=== PATIENT | male | born 1935 | race Caucasian/White ===

== ENCOUNTER 2019-11-21 03:00 | Inpatient (IN) | payer MEDICARE, OTHER ==
[2019-11-21] MEDS ORDERED: VANCOMYCIN HCL INJ 1000 MG VIAL IV ONE (03:25)
[2019-11-21] MEDS ORDERED: ACETAMINOPHEN 325 MG TABLET PO ONE (03:25)
[2019-11-21] MEDS ORDERED: AZTREONAM INJ 1 GM VIAL IV ONE (03:25)
--- NOTE | 2019-11-21 03:32 | ER Document Report ---
ED General - General Chief Complaint: Edema Stated Complaint: POSS CELLULITIS IN LEGS Time Seen by Provider: 11/21/19 03:10 Mode of Arrival: Medic Information source: Patient, Relative Notes: 84-year-old male past medical history significant for lymphedema, CHF, hyperlipidemia, diabetes presents to the emergency room via EMS with family at bedside who states that patient has been complaining of worsening pain and swelling in his legs for the past 2 weeks. States normally wears compression stockings but he developed some sores to his leg so he stopped wearing them 2 weeks ago. Increasing redness and swelling was noted tonight. Also has an area on his left medial calf that is draining purulent drainage. Per family he seemed more confused over the past few days. Today was found wandering through the house. Denies any fevers. No medications for symptoms. No recent antibiotics in the past month. No recent travel. No history of DVTs or PEs. No COVID-19 exposure. TRAVEL OUTSIDE OF THE [place] IN LAST 30 DAYS: No - Related Data Allergies/Adverse Reactions: No Known Drug Allergies Allergy (Verified 06/24/13 07:12) Past Medical History - General Information source: Patient, Relative - Social History Smoking Status: Never Smoker Frequency of alcohol use: Occasional Family History: Reviewed & Not Pertinent - Past Medical History Cardiac Medical History: Reports: Hx Hypercholesterolemia, Hx Hypertension Denies: Hx Coronary Artery Disease, Hx Heart Attack Pulmonary Medical History: Reports: Hx Pneumonia - A TEENAGER Denies: Hx Asthma, Hx Bronchitis, Hx COPD Neurological Medical History: Denies: Hx Cerebrovascular Accident, Hx Seizures Endocrine Medical History: Reports: Hx Diabetes Mellitus Type 2 Renal/ Medical History: Reports: Hx Kidney Stones GI Medical History: Reports: Hx Gastroesophageal Reflux Disease Musculoskeletal Medical History: Denies Hx Arthritis Past Surgical History: Reports: Hx Appendectomy, Hx Cardiac Catheterization, Hx Tonsillectomy - Immunizations Hx Diphtheria, Pertussis, Tetanus Vaccination: Yes - 5-10 yrs ago Hx Pneumococcal Vaccination: 03/11/07 Review of Systems - Review of Systems Constitutional: No symptoms reported Cardiovascular: Edema Respiratory: No symptoms reported Musculoskeletal: Leg swelling Skin: Other - Lower extremity erythema, left worse than right., Neurological/Psychological: No symptoms reported -: Yes All other systems reviewed and negative Physical Exam - Vital signs Vitals: Temp Pulse Resp BP Pulse Ox 99 F 97 26 H 107/51 L 96 11/21/19 03:00 11/21/19 03:00 11/21/19 03:00 11/21/19 03:00 11/21/19 03:00 - General General appearance: Appears well, Alert In distress: Mild - Respiratory Respiratory status: No respiratory distress Chest status: Nontender Breath sounds: Normal Chest palpation: Normal - Cardiovascular Rhythm: Regular Heart sounds: Normal auscultation Murmur: No - Extremities General upper extremity: Normal inspection General lower extremity: Tender, Edema, Other - Bilateral lower leg swelling from the knees down. Left lower extremity with erythema, open draining sores noted to the left posterior calf. Warm and tender to palpation. Erythema extending into the left groin area. - Neurological Neuro grossly intact: Yes Cognition: Normal Orientation: AAOx4 Mary Kate Coma Scale Eye Opening: Spontaneous Mary Kate Coma Scale Verbal: Oriented Mary Kate Coma Scale Motor: Obeys Commands Mary Kate Coma Scale Total: 15 Speech: Normal Motor strength normal: LUE, RUE, LLE, RLE Sensory: Normal - Skin Skin Temperature: Warm Skin Moisture: Dry Skin Color: Erythema Skin Turgor: Tight Skin irregularity: Erythema, Lesion Location of irregularity: Extremities Character of irregularity: Erythematous Irregularity with: Swelling, Tenderness, Warmth, Weeping Course - Re-evaluation Re-evalutation: 11/21/19 04:31 Reviewed glucose level with patient and family. Will give IV dextrose, remaining labs and x-rays are still pending. Patient was treated for sepsis with IV antibiotics, lactic acid, blood cultures. 11/21/19 05:03 Patient is more alert. Repeat glucose 166. Reviewed all test results with patient and family. Aware of need for admission. Patient and family agree to admission. Aware that Dr. Lim will be in to see them. - Vital Signs Vital signs: Temp Pulse Resp BP Pulse Ox 98.9 F 97 26 H 96/60 L 99 11/21/19 05:01 11/21/19 03:00 11/21/19 06:01 11/21/19 06:00 11/21/19 06:01 - Laboratory Result Diagrams: 11/21/19 03:36 11/21/19 03:36 Laboratory results interpreted by me: 11/21/19 11/21/19 11/21/19 03:36 03:36 04:50 RBC 3.60 L Hgb 12.3 L Hct 35.1 L MCV 98 H MCH 34.1 H RDW 14.6 H Band Neutrophils % 8 H Lymphocytes % (Manual) 10 L Monocytes % (Manual) 15 H Abs Monocytes (Manual) 1.5 H Sodium 131.9 L BUN 34 H Creatinine 1.28 H Est GFR (MDRD) Non-Af 54 L Glucose 44 L POC Glucose 164 H Total Bilirubin 1.4 H Direct Bilirubin 0.7 H Total Protein 5.5 L Albumin 2.9 L - EKG Interpretation by Me EKG shows normal: Sinus rhythm Additional EKG results interpreted by me: 11/21/19 03:27 EKG interpreted by ED physician Dr. Bruce No acute STEMI Sinus rhythm Rate 97 Left axis deviation Borderline T wave abnormalities - Consults Dr. Lim Time consulted: 05:04 Reason for consultation: 11/21/19 05:04 Admit for left leg cellulitis. All test results were reviewed with hospitalist. Who agrees to come to the ER to see patient. Consulted provider: will come to ER Discharge - Discharge Clinical Impression: Cellulitis of left leg Condition: Stable Disposition: ADMITTED INPATIENT Admitting Provider: Raphael (Hospitalist) Unit Admitted: [facility] ED Sepsis - Sepsis Documentation Sepsis Patient: Yes - Vital Signs Interpretation: Hypotensive - Respiratory Breath sounds: Clear Respiratory Status: No respiratory distress - Skin Skin Color: Erythema - Fluid Challenge Was the patient given a fluid challenge?: No
[2019-11-21 04:07] LABS: INTERNATIONAL RATION (INR) 1.18; PROTHROMBIN TIME 15.2 SEC (11.4-15.4)
[2019-11-21 04:12] LABS: ALBUMIN 2.9 g/dL (3.5-5.0); ALKALINE PHOSPHATASE 60 U/L (38-126); ANION GAP 9 (5-19); ASPARTATE AMINO TRANSFERASE 26 U/L (17-59); BILIRUBIN,DIRECT 0.7 mg/dL (0.0-0.4); BILIRUBIN,TOTAL 1.4 mg/dL (0.2-1.3); BLOOD UREA NITROGEN 34 mg/dL (7-20); CALCIUM 8.7 mg/dL (8.4-10.2); CARBON DIOXIDE 22 mmol/L (22-30); CHLORIDE 101 mmol/L (98-107); POTASSIUM 4.1 mmol/L (3.6-5.0); TOTAL PROTEIN 5.5 g/dL (6.3-8.2)
[2019-11-21 04:17] LABS: GLUCOSE 44 mg/dL (75-110)
[2019-11-21] MEDS ORDERED: DEXTROSE 50%-WATER 25 GM/50 ML DISP.SYRIN IV ONE (04:19)
[2019-11-21 04:27] LABS: HEMATOCRIT 35.1 % (37.9-51.0); HEMOGLOBIN 12.3 g/dL (13.5-17.0); MEAN CORPUSCULAR HEMOGLOBIN 34.1 pg (27.0-33.4); MEAN CORPUSCULAR HGB CONC 34.9 g/dL (32.0-36.0); MEAN CORPUSCULAR VOLUME 98 fl (80-97); PLATELET COUNT 160 10^3/uL (150-450); RED CELL DISTRIBUTION WIDTH 14.6 % (11.5-14.0)
--- NOTE | 2019-11-21 04:32 | RADIOLOGY REPORT (SQ) ---
EXAM DESCRIPTION: CHEST SINGLE VIEW IMAGES COMPLETED DATE/TIME: 11/21/2019 3:42 am REASON FOR STUDY: edema COMPARISON: AP view of the chest from 12/07/2015. EXAM PARAMETERS: NUMBER OF VIEWS: One view. TECHNIQUE: An AP view of the chest was obtained. RADIATION DOSE: NA LIMITATIONS: None. FINDINGS: LUNGS AND PLEURA: Low inspiratory lung volumes without a superimposed consolidation, sizea ble pleural effusion or pneumothorax. MEDIASTINUM AND HILAR STRUCTURES: No mediastinal or hilar contour abnormality. HEART AND VASCULAR STRUCTURES: The cardiac silhouette is enlarged. BONES: No acute findings. HARDWARE: None in the chest. OTHER: No other finding. IMPRESSION: Cardiomegaly and low inspiratory lung volumes without a superimposed acute cardiopulmona ry process. TECHNICAL DOCUMENTATION: JOB ID: [id number] 2010 [employer]- All Rights Reserved Reading location - IP/workstation name: [email or web address]
[2019-11-21 04:39] LABS: ABSOLUTE MONOCYTES # (MANUAL) 1.5 10^3/uL (0.1-1.4); BAND NEUTROPHILS % (MANUAL) 8 % (3-5); BASOPHILS % (MANUAL) 0 % (0-2); EOSINOPHILS % (MANUAL) 0 % (0-6); LYMPHOCYTES % (MANUAL) 10 % (13-45); MONOCYTES % (MANUAL) 15 % (3-13); SEGMENTED NEUTROPHILS % (MAN) 67 % (42-78); TOTAL CELLS COUNTED 100
[2019-11-21 04:40] LABS: ANISOCYTOSIS SLIGHT; PLATELET COMMENT ADEQUATE; TOXIC GRANULATION SLIGHT
[2019-11-21] MEDS ORDERED: RINGERS SOLUTION,LACTATED 500 ML IV ONE (05:06)
[2019-11-21] MEDS ORDERED: RINGERS SOLUTION,LACTATED 1,000 ML IV PRN ×2 (06:01→06:11)
[2019-11-21] MEDS ORDERED: MAGNESIUM HYDROXIDE SUSP 30 ML UDCUP PO PRN (06:02)
[2019-11-21] MEDS ORDERED: ACETAMINOPHEN 325 MG TABLET PO PRN (06:02)
--- NOTE | 2019-11-21 06:08 | PDOC H&P ---
History of Present Illness Admission Date/PCP: 11/21/19 05:15 ALICE LEDEZMA MD Patient complains of: Red swollen painful left leg History of Present Illness: NOÉ TOBAR is a 84 year old male with a history of diabetes, hypertension and hyperlipidemia who presents with significant worsening of his lower extremity edema left greater than right. The left lower leg is markedly erythematous. There is a large bullous lesion on the calf area that still is w eeping fluid. There is the base of what was a bullous lesion on the right leg but the right leg is not erythematous. There is a suggestion of erythema progressing along the medial thigh. This area is not tender but the lower leg is very tender. It has keratin scaling. There is the one prominent bullous lesion on the calf but no other weeping lesions at this time. There is no purulent drainage in the causative organism is most likely Streptococcus. He lives at home with his daughter and son-in-law as opposed to a correction facility. Risk for methicillin-resistant staph aureus is also low. It is unlikely that he has gram-negative bacilli causing his infection. I have ordered an antistreptolysin O test to assess for group A strep. The patient exhibits hypotension as well as acute kidney injury that qualifies for sepsis. He will receive bolus IV fluids and we will hold his furosemide and metoprolol until his blood pressure stabilizes. He is diabetic and we will utilize Accu- Cheks and sliding scale coverage for the time being. He will be monitored on telemetry in the [facility]. Serial lactic acids will be obtained but the first study was negative. 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 He believes the numbers well over 100. He currently has some on his tongue as well as the lips causing purple discoloration. GI Medical History: Reports: Gastroesophageal Reflux Disease Musculoskeltal Medical History: Denies: Arthritis Psychiatric Medical History: Denies: Alcohol Dependency, Substance Abuse, Tobacco Dependency Hematology: Denies: Anemia Past Surgical History Past Surgical History: Reports: Appendectomy, Cardiac Catheterization, Tonsillectomy Social History Information Source: Patient, Relative - Son-in-law Lives with: Family Smoking Status: Former Smoker - Stopped many years ago Frequency of Alcohol Use: Occasional - [place] Hx Recreational Drug Use: No Drugs: None Hx Prescription Drug Abuse: No - Advance Directive Resuscitation Status: Full Code Surrogate healthcare decision maker:: The patient's daughter is the power of collections attorney. Family History Family History: Malignancy, Other - Myasthenia gravis Parental Family History Reviewed: Yes Children Family History Reviewed: Yes Sibling(s) Family History Reviewed.: Yes Medication/Allergy Home Medications: Aspirin [Aspirin EC] 81 mg PO DAILY 06/24/13 Atorvastatin Calcium 20 mg PO DAILY 06/24/13 Cinnamon Bark/Chromium Picolin [Cinnamon Plus Chromium Capsule] 1 cap PO ASDIR 06/24/13 Insulin Detemir [Levemir Insulin 100 units/mL Insulin Pen] 100 unit SUBCUT DAILY 06/24/13 Loratadine [Claritin] 10 mg PO DAILY 06/24/13 Metoprolol Succinate [Toprol Xl] 50 mg PO DAILY 06/24/13 Multivitamin [Daily Vitamin] 1 each PO DAILY 06/24/13 [place]-3 Fatty Acids/Fish Oil [[place] 3 Fish Oil Softgel] 1 each PO BID 06/24/13 Saw [place] Fruit [Saw [place]] 450 mg PO ASDIR PRN 06/24/13 Sitagliptin Phos/Metformin HCl [Janumet Xr 50-500 mg Tablet] 1 each PO BID 06/24/13 Telmisartan 20 mg PO DAILY 06/24/13 Valacyclovir HCl [Valacyclovir] 1,000 mg PO DAILY 06/24/13 Ascorbic Acid [Vitamin C] 500 mg PO DAILY 06/21/15 Allergies/Adverse Reactions: No Known Drug Allergies Allergy (Verified 06/24/13 07:12) Review of Systems All systems: reviewed and no additional remarkable complaints except as stated Constitutional: PRESENT: weight gain Cardiovascular: PRESENT: edema Integumentary: PRESENT: erythema, lesions - Bullae lower legs serous fluid Neurological: PRESENT: abnormal gait - Due to marked edema Endocrine: PRESENT: other - Hypoglycemia Physical Exam Vital Signs: Temp Pulse Resp BP Pulse Ox 98.9 F 97 24 H 83/46 L 95 11/21/19 05:01 11/21/19 03:00 11/21/19 05:01 11/21/19 05:01 11/21/19 05:01 Intake & Output 11/19/19 11/20/19 11/21/19 06:59 06:59 06:59 Intake Total 250 Balance 250 Weight 93.4 kg General appearance: PRESENT: well-developed, other - Well-developed 84-year-old patient in moderate distress Head exam: PRESENT: atraumatic, normocephalic Eye exam: PRESENT: conjunctiva pink, EOMI. ABSENT: scleral icterus Ear exam: PRESENT: normal external ear exam. ABSENT: bleeding, drainage Mouth exam: PRESENT: moist, tongue midline, other - Multiple nodules on the time consistent with his history of lymphatic hemangioma. Purplish discoloration on the lips also part of the lymphatic hemangioma presentation Teeth exam: PRESENT: poor dentation Neck exam: ABSENT: carotid bruit, JVD, lymphadenopathy Respiratory exam: PRESENT: clear to auscultation nikolas, symmetrical, unlabored. ABSENT: rales, rhonchi, tachypnea, wheezes Cardiovascular exam: PRESENT: RRR, +S1, +S2. ABSENT: bradycardia, diastolic murmur, irregular rhythm, systolic murmur, tachycardia GI/Abdominal exam: PRESENT: normal bowel sounds, soft, other - Protuberant abdomen. ABSENT: guarding, tenderness Rectal exam: PRESENT: deferred Gentrourinary exam: ABSENT: indwelling catheter Extremities exam: PRESENT: pedal edema - Left greater than right, +2 edema, other Musculoskeletal exam: ABSENT: normal inspection Neurological exam: PRESENT: alert, awake, oriented to person, oriented to place, oriented to time, oriented to situation, CN II-XII grossly intact. ABSENT: altered Psychiatric exam: PRESENT: flat affect. ABSENT: agitated, anxious Focused psych exam: ABSENT: delusional, paranoid, restlessness Skin exam: PRESENT: erythema, other - Keratin scaling on the left lower leg. Large bullous lesion that has opened on the right calf and is weeping straw- colored serous fluid. No purulent drainage. Results Laboratory Results: 11/21/19 03:36 11/21/19 03:36 11/21/19 11/21/19 11/21/19 03:36 03:36 03:36 WBC 10.0 RBC 3.60 L Hgb 12.3 L Hct 35.1 L MCV 98 H MCH 34.1 H MCHC 34.9 RDW 14.6 H Plt Count 160 Seg Neutrophils % Not Reportable Sodium 131.9 L Potassium 4.1 Chloride 101 Carbon Dioxide 22 Anion Gap 9 BUN 34 H Creatinine 1.28 H Est GFR ( Amer) > 60 Glucose 44 L Lactic Acid 1.7 Calcium 8.7 Total Bilirubin 1.4 H AST 26 Alkaline Phosphatase 60 Total Protein 5.5 L Albumin 2.9 L Impressions: Chest X-Ray 11/21/19 03:25 IMPRESSION: Cardiomegaly and low inspiratory lung volumes without a superimposed acute cardiopulmonary process. Assessment and Plan - Diagnosis (1) Sepsis associated hypotension Is this a current diagnosis for this admission?: Yes Plan: The patient meets criteria for sepsis with a serum creatinine greater than 1.2, total bilirubin greater than 1.2 and mean arterial pressure less than 70 all present on admission. He also has some mental status changes but that was likely due to hypoglycemia. He is getting fluid boluses and antibiotics have been started. Blood cultures have been obtained. Will monitor closely on telemetry with every 4 hours vital signs as well. Lactic acid was not elevated. Will recheck per protocol. (2) Cellulitis of left leg Is this a current diagnosis for this admission?: Yes Plan: Very angry red left lower leg. There is suggestion of erythema traveling proximally on the inside of the thigh but no clear-cut lymphangitis. No purulent drainage. Most likely a streptococcal organism. The patient will be continued on Rocephin and received 2 days of clindamycin to suppress toxin production. Blood cultures are pending. We will also monitor white blood cell count. (3) Hyperglycemia due to diabetes mellitus Is this a current diagnosis for this admission?: Yes Plan: The patient is on Levemir at home. We will use a cardiac/diabetic diet and A ccu-Cheks at mealtime and bedtime with sliding scale coverage for now. (4) Edema, lower extremity Is this a current diagnosis for this admission?: Yes Plan: The patient usually wears compression stockings. As his legs became more swollen he was not able to put them on. The patient would benefit from compression wraps. After the weekend we will try and obtain multilayer compression wraps in coordination with the wound care clinic. For now elevate lower extremities. (5) Hyponatremia Is this a current diagnosis for this admission?: Yes Plan: We will monitor serum sodium closely. Possibly related to fluid retention with lymphedema. Elevation in serum creatinine is not likely high enough to cause the hyponatremia. We will continue to monitor with serial laboratory studies. No specific intervention at this time as the patient needs fluid boluses for sepsis. (6) HTN (hypertension), benign Is this a current diagnosis for this admission?: Yes Plan: The patient is normally on furosemide, metoprolol and propranolol. These are on hold pending improvement in his blood pressure. (7) Hypoglycemia Is this a current diagnosis for this admission?: Yes Plan: Initial glucose was 44. He was given 25 g of D50 through his intravenous line. Subsequently glucose is elevated. Will use Accu-Cheks and sliding scale cov erage as noted above for ongoing control of his diabetes. It is likely that the hypoglycemia was responsible for any altered mental status previously reported. During my encounter the patient did not have any altered mental status. - Time Time Spent with patient: 35 or more minutes Medications reviewed and adjusted accordingly: Yes Anticipated Discharge Disposition: Home with Home Health Anticipated Discharge Timeframe: 4 to 5 days - Inpatient Certification Based on my medical assessment, after consideration of the patient's comorbidities, presenting symptoms, or acuity I expect that the services needed warrant INPATIENT care.: Yes I certify that my determination is in accordance with my understanding of Medicare's requirements for reasonable and necessary INPATIENT services [42 CFR 412.3e].: Yes Medical Necessity: Need Close Monitoring Due to Risk of Patient Decompensation, Need For IV Fluids, Need For Continuous Telemetry Monitoring, Need for Pain Control, Need for IV Antibiotics Post Hospital Care: D/C or Transfer Summary
[2019-11-21] MEDS ORDERED: RINGERS SOLUTION,LACTATED 1,000 ML IV ONE (06:09)
[2019-11-21] MEDS ORDERED: DEXTROSE 40% GEL 15 GM TUBE PO PRN ×2 (06:32)
[2019-11-21] MEDS ORDERED: DEXTROSE 50%-WATER 25 GM/50 ML DISP.SYRIN IV PRN ×2 (06:32)
[2019-11-21] MEDS ORDERED: GLUCAGON,HUMAN RECOMB 1 MG INJ IM PRN (06:32)
[2019-11-21] MEDS ORDERED: CLINDAMYCIN 600 MG/D5W RTU 600 MG/50 ML RTUPB IV ONE (07:00)
[2019-11-21] MEDS ORDERED: NORMAL SALINE 1000 ML 1,000 ML IV PRN (08:43)
[2019-11-21] MEDS: INSULIN REG, HUMAN 100 UNIT/ML 3 ML VIAL (PYX) SUBCUT SCH ×2 (10:01→12:51)
[2019-11-21] MEDS: CEFTRIAXONE 1 GM/D5W RTU 1 GM/50 ML RTUPB IV SCH (10:10)
[2019-11-21] MEDS ORDERED: DEXTROSE 5%-NORMAL SALINE 1,000 ML IV PRN (12:46)
[2019-11-21] MEDS: CLINDAMYCIN 600 MG/D5W RTU 600 MG/50 ML RTUPB IV SCH ×2 (15:02→21:23)
--- NOTE | 2019-11-21 18:36 | RADIOLOGY REPORT (SQ) ---
EXAM DESCRIPTION: CHEST SINGLE VIEW IMAGES COMPLETED DATE/TIME: 11/21/2019 6:09 pm REASON FOR STUDY: hypoxia, tachypnea COMPARISON: 11/21/2019 EXAM PARAMETERS: NUMBER OF VIEWS: One view. TECHNIQUE: Single frontal radiographic view of the chest acquired. RADIATION DOSE: NA LIMITATIONS: None. FINDINGS: LUNGS AND PLEURA: Short interval development of bibasilar opacities and small bilateral ef fusions. No pneumothorax. MEDIASTINUM AND HILAR STRUCTURES: No masses. Contour normal. HEART AND VASCULAR STRUCTURES: Cardiomegaly with central vascular congestion. BONES: No acute findings. HARDWARE: None in the chest. OTHER: No other significant finding. IMPRESSION: Short interval development of findings suggestive of CHF exacerbation. TECHNICAL DOCUMENTATION: JOB ID: [id number] 2010 [employer]- All Rights Reserved Reading location - IP/workstation name: [email or web address]
--- NOTE | 2019-11-21 18:48 | ADVANCED CARE ---
- Diagnosis (1) Sepsis associated hypotension Diagnosis Current: Yes Resuscitation Status: Do Not Resuscitate Discussion: Discussed goals of care with Mr. Santoyo. He states that he has an advance directive, but that it's several years old and he doesn't remember what exactly it says. He himself notes that he does not want extraordinary measures like intubation or compressions if he should continue to decline, but would be okay with CPAP/BIPAP and any medications that could help him feel better, including pressors. Time Spent: >20 minutes
[2019-11-21 19:18] LABS: HEMOGLOBIN 12.3 g/dL (13.5-17.0); MEAN CORPUSCULAR HEMOGLOBIN 33.7 pg (27.0-33.4); MEAN CORPUSCULAR HGB CONC 34.2 g/dL (32.0-36.0); MEAN CORPUSCULAR VOLUME 98 fl (80-97); PLATELET COUNT 132 10^3/uL (150-450); RED BLOOD COUNT 3.66 10^6/uL (4.35-5.55); RED CELL DISTRIBUTION WIDTH 14.6 % (11.5-14.0); WHITE BLOOD COUNT 10.8 10^3/uL (4.0-10.5)
[2019-11-21 19:21] LABS: FIBRINOGEN 619 mg/dL (209-497); INTERNATIONAL RATION (INR) 1.18; PROTHROMBIN TIME 15.2 SEC (11.4-15.4)
[2019-11-21] MEDS ORDERED: NORMAL SALINE 1000 ML 1,000 ML IV ONE (19:30)
[2019-11-21] MEDS ORDERED: FUROSEMIDE INJ/PF 20 MG/2 ML SDV IV ONE (19:30)
[2019-11-21 19:35] LABS: ALBUMIN 2.7 g/dL (3.5-5.0); ALKALINE PHOSPHATASE 66 U/L (38-126); ANION GAP 6 (5-19); ASPARTATE AMINO TRANSFERASE 29 U/L (17-59); BILIRUBIN,TOTAL 1.4 mg/dL (0.2-1.3); BLOOD UREA NITROGEN 26 mg/dL (7-20); CALCIUM 8.5 mg/dL (8.4-10.2); CARBON DIOXIDE 27 mmol/L (22-30); CHLORIDE 100 mmol/L (98-107); CREATINE KINASE 79 U/L (55-170); GLUCOSE 119 mg/dL (75-110); POTASSIUM 4.4 mmol/L (3.6-5.0); TOTAL PROTEIN 5.5 g/dL (6.3-8.2)
[2019-11-21 19:42] LABS: ABSOLUTE LYMPHOCYTES# (MANUAL) 1.4 10^3/uL (0.5-4.7); ABSOLUTE MONOCYTES # (MANUAL) 0.4 10^3/uL (0.1-1.4); BAND NEUTROPHILS % (MANUAL) 6 % (3-5); BASOPHILS % (MANUAL) 0 % (0-2); EOSINOPHILS % (MANUAL) 0 % (0-6); LYMPHOCYTES % (MANUAL) 9 % (13-45); METAMYELOCYTES % (MANUAL) 2 % (0-1); MONOCYTES % (MANUAL) 4 % (3-13); PLATELET CLUMPS PRESENT; SEGMENTED NEUTROPHILS % (MAN) 75 % (42-78); TOTAL CELLS COUNTED 100; TOXIC VACUOLATION PRESENT
[2019-11-21 19:43] LABS: ANISOCYTOSIS SLIGHT; PLATELET COMMENT DECREASED
[2019-11-21 19:44] LABS: D-DIMER 11.34 ug/mL (0.00-0.50)
[2019-11-21 19:45] LABS: POLYCHROMASIA SLIGHT
[2019-11-21 19:47] LABS: SCHISTOCYTES SLIGHT
[2019-11-21 19:49] LABS: TOXIC GRANULATION SLIGHT
[2019-11-21 19:55] LABS: TROPONIN I 0.16 ng/mL
[2019-11-21 20:09] LABS: C-REACTIVE PROTEIN 382.6 mg/L (<10.0)
[2019-11-21] MEDS: ASPIRIN 81 MG TABLET, ENT COATED PO SCH (21:22)
[2019-11-21 21:46] LABS: ARTERIAL BLOOD BASE EXCESS -0.4 mmol/L; ARTERIAL BLOOD FIO2 2L; ARTERIAL BLOOD H2CO3 0.99 mmol/L (1.05-1.35); ARTERIAL BLOOD HCO3 22.8 mmol/L (20-24); ARTERIAL BLOOD O2 SATURATION 96.8 % (94-98); ARTERIAL BLOOD PCO2 32.8 mmHg (35-45); ARTERIAL BLOOD PH 7.46 (7.35-7.45); ARTERIAL BLOOD PO2 83.5 mmHg (80-100); ARTERIAL BLOOD TOTAL CO2 23.8 mmol/L (23-27)
[2019-11-21] MEDS ORDERED: ATORVASTATIN CALCIUM 40 MG TABLET PO SCH (22:00)
[2019-11-22] MEDS: CLINDAMYCIN 600 MG/D5W RTU 600 MG/50 ML RTUPB IV SCH ×3 (06:03→22:02)
[2019-11-22 06:10] LABS: HEMATOCRIT 31.9 % (37.9-51.0); HEMOGLOBIN 11.1 g/dL (13.5-17.0); MEAN CORPUSCULAR HGB CONC 34.9 g/dL (32.0-36.0); MEAN CORPUSCULAR VOLUME 98 fl (80-97); PLATELET COUNT 124 10^3/uL (150-450); RED BLOOD COUNT 3.26 10^6/uL (4.35-5.55); RED CELL DISTRIBUTION WIDTH 14.4 % (11.5-14.0); WHITE BLOOD COUNT 10.9 10^3/uL (4.0-10.5)
[2019-11-22 06:37] LABS: ANION GAP 7 (5-19); BLOOD UREA NITROGEN 24 mg/dL (7-20); CALCIUM 7.8 mg/dL (8.4-10.2); CARBON DIOXIDE 25 mmol/L (22-30); CHLORIDE 101 mmol/L (98-107); GLUCOSE 75 mg/dL (75-110)
[2019-11-22 07:01] LABS: POTASSIUM 3.3 mmol/L (3.6-5.0)
[2019-11-22] MEDS: CEFTRIAXONE 1 GM/D5W RTU 1 GM/50 ML RTUPB IV SCH (08:01)
[2019-11-22] MEDS ORDERED: POTASSIUM CHLORIDE 20 MEQ PACKET PO ONE (08:30)
[2019-11-22] MEDS: FUROSEMIDE INJ/PF 20 MG/2 ML SDV IV SCH (10:08)
[2019-11-22] MEDS: POTASSIUM CHLORIDE 20 MEQ PACKET PO SCH (10:27)
[2019-11-22] MEDS ORDERED: IPRATROPIUM/ALBUTEROL 0.5-2.5 MG/3 ML AMPUL NEB PRN (10:50)
[2019-11-22] MEDS ORDERED: ASPIRIN 81 MG TABLET, ENT COATED PO SCH (11:00)
[2019-11-22] MEDS ORDERED: (PENDING PHARMACY ID) (Valacyclovir Hcl [Valacyclovir] 1,000 MG) PO SCH (11:00)
[2019-11-22] MEDS: ATORVASTATIN CALCIUM 20 MG TABLET PO SCH (12:22)
[2019-11-22] MEDS: METOPROLOL SUCCINATE 50 MG TAB.SR.24H PO SCH (12:22)
[2019-11-22] MEDS: PROPRANOLOL HCL 10 MG TABLET PO SCH ×2 (12:26→22:21)
[2019-11-22] MEDS: VALACYCLOVIR HCL 500 MG TABLET PO SCH (12:50)
[2019-11-22] MEDS ORDERED: DEXTROSE 50%-WATER 25 GM/50 ML DISP.SYRIN IV PRN ×2 (17:42)
[2019-11-22] MEDS ORDERED: DEXTROSE 40% GEL 15 GM TUBE PO PRN ×2 (17:42)
[2019-11-22] MEDS ORDERED: GLUCAGON,HUMAN RECOMB 1 MG INJ IM PRN (17:42)
--- NOTE | 2019-11-22 18:20 | PDOC PROGRESS REPORT ---
Subjective Progress Note for:: 11/22/19 Subjective:: Mr. Tobar states that he feels better. His breathing feels improved. He is able to speak in complete sentences, he is sitting up to eat his lunch and speaking happily on the phone with his daughter. His legs feel less "tight" today. Reason For Visit: CELLULITIS OF LEFT LEG Physical Exam Vital Signs: Temp Pulse Resp BP Pulse Ox 97.7 F 108 H 16 135/98 H 100 11/22/19 13:10 11/22/19 14:00 11/22/19 13:10 11/22/19 13:10 11/22/19 13:10 Intake & Output 11/21/19 11/22/19 11/23/19 06:59 06:59 06:59 Intake Total 250 2800 100 Output Total 1370 Balance 250 1430 100 Weight 93.4 kg 90.9 kg General appearance: PRESENT: no acute distress, cooperative Eye exam: ABSENT: scleral icterus Mouth exam: PRESENT: moist Neck exam: PRESENT: JVD Respiratory exam: PRESENT: crackles Cardiovascular exam: PRESENT: tachycardia Extremities exam: PRESENT: other - 4+ LLE and 3+ RLE edema, somewhat improved since yesterday (new wrinkles on both legs) + decreasing erythema on RLE + oozing posterior LLE skin opening Neurological exam: PRESENT: alert, awake, oriented to person, oriented to place, oriented to time, oriented to situation Psychiatric exam: PRESENT: appropriate affect Results Laboratory Results: 11/22/19 05:15 11/22/19 05:15 11/21/19 11/21/19 11/21/19 19:00 19:00 19:00 WBC 10.8 H RBC 3.66 L Hgb 12.3 L Hct 36.0 L MCV 98 H MCH 33.7 H MCHC 34.2 RDW 14.6 H Plt Count 132 L Seg Neutrophils % Not Reportable Carbonic Acid HCO3/H2CO3 Ratio ABG pH ABG pCO2 ABG pO2 ABG HCO3 ABG O2 Saturation ABG Base Excess FiO2 Sodium 132.8 L Potassium 4.4 Chloride 100 Carbon Dioxide 27 Anion Gap 6 BUN 26 H Creatinine 1.06 Est GFR ( Amer) > 60 Glucose 119 H Lactic Acid 1.7 Calcium 8.5 Magnesium 1.9 Total Bilirubin 1.4 H AST 29 Alkaline Phosphatase 66 C-Reactive Protein 382.6 H Total Protein 5.5 L Albumin 2.7 L 11/21/19 11/21/19 11/22/19 19:30 20:50 05:15 WBC 10.9 H RBC 3.26 L Hgb 11.1 L Hct 31.9 L MCV 98 H MCH 34.0 H MCHC 34.9 RDW 14.4 H Plt Count 124 L Seg Neutrophils % Carbonic Acid Cancelled 0.99 L HCO3/H2CO3 Ratio Cancelled 23:1 ABG pH Cancelled 7.46 H ABG pCO2 Cancelled 32.8 L ABG pO2 Cancelled 83.5 ABG HCO3 Cancelled 22.8 ABG O2 Saturation Cancelled 96.8 ABG Base Excess Cancelled -0.4 FiO2 Cancelled 2L Sodium Potassium Chloride Carbon Dioxide Anion Gap BUN Creatinine Est GFR ( Amer) Glucose Lactic Acid Calcium Magnesium Total Bilirubin AST Alkaline Phosphatase C-Reactive Protein Total Protein Albumin 11/22/19 05:15 WBC RBC Hgb Hct MCV MCH MCHC RDW Plt Count Seg Neutrophils % Carbonic Acid HCO3/H2CO3 Ratio ABG pH ABG pCO2 ABG pO2 ABG HCO3 ABG O2 Saturation ABG Base Excess FiO2 Sodium 133.2 L Potassium 3.3 L D Chloride 101 Carbon Dioxide 25 Anion Gap 7 BUN 24 H Creatinine 1.00 Est GFR ( Amer) > 60 Glucose 75 Lactic Acid Calcium 7.8 L Magnesium 1.8 Total Bilirubin AST Alkaline Phosphatase C-Reactive Protein Total Protein Albumin 11/21/19 11/21/19 19:00 19:00 Creatine Kinase 79 Troponin I 0.160 NT-Pro-B Natriuret Pep 4030 H Impressions: Chest X-Ray 11/21/19 03:25 IMPRESSION: Cardiomegaly and low inspiratory lung volumes without a superimposed acute cardiopulmonary process. Assessment and Plan - Diagnosis (1) Sepsis associated hypotension Is this a current diagnosis for this admission?: Yes (2) Cellulitis of left leg Is this a current diagnosis for this admission?: Yes (3) Hyperglycemia due to diabetes mellitus Is this a current diagnosis for this admission?: Yes - Plan Summary Summary: NOÉ TOBAR is an 84 year old male with HTN, HLD, DM2, bilateral lower extremity chronic venous stasis who presented 11/21/2019 with significant wors ening of his lower extremity edema left greater than right. Sepsis associated hypotension: The patient meets criteria for sepsis with a serum creatinine greater than 1.2, total bilirubin greater than 1.2 and mean arterial pressure less than 70 all present on admission. Non-purulent cellulitis of left leg: most likely a streptococcal organism. The patient will be continued on Rocephin and received 2 days of clindamycin to suppress toxin production. - Blood cultures show NGTD DM2 c/b hypo- and hyperglycemia - HbA1c - cardiac/diabetic diet - Accu-Cheks at mealtime and bedtime with sliding scale coverage Bilateral Leg Chronic venous stasis: he usually wears compression stockings. As his legs became more swollen he was not able to put them on. The patient would benefit from compression wraps. After the weekend we will try and obtain multilayer compression wraps in coordination with the wound care clinic. For now elevate lower extremities. Outpatient wound care clinic follow up post- discharge. Hypervolemic Hyponatremia: related to fluid retention, improving with diuresis - continue daily Lasix Acute Hypoxemic Respiratory Failure: improving with diuresis - continue daily Lasix - wean off O2 as tolerated Tachycardia - restart home metoprolol and propranolol - telemetry - Time Time Spent with patient: 35 or more minutes Anticipated Discharge Disposition: Home, Self Care Anticipated Discharge Timeframe: within 72 hours
[2019-11-22] MEDS: INSULIN LISPRO 100 UNIT/ML 3 ML VIAL SUBCUT SCH (22:03)
[2019-11-22] MEDS: ASPIRIN 81 MG TABLET, ENT COATED PO SCH (22:04)
--- NOTE | 2019-11-23 02:51 | EKG REPORT ---
SEVERITY:- BORDERLINE ECG - SINUS RHYTHM LEFT AXIS DEVIATION BORDERLINE T ABNORMALITIES, INFERIOR LEADS : Confirmed by: Chan Nails MD 23-Nov-2019 02:50:05
[2019-11-23] MEDS: INSULIN LISPRO 100 UNIT/ML 3 ML VIAL SUBCUT SCH ×4 (08:22→21:51)
[2019-11-23] MEDS: CEFTRIAXONE 1 GM/D5W RTU 1 GM/50 ML RTUPB IV SCH (08:29)
[2019-11-23 10:04] LABS: HEMOGLOBIN 11.9 g/dL (13.5-17.0); MEAN CORPUSCULAR HEMOGLOBIN 33.6 pg (27.0-33.4); MEAN CORPUSCULAR HGB CONC 34.1 g/dL (32.0-36.0); MEAN CORPUSCULAR VOLUME 99 fl (80-97); PLATELET COUNT 152 10^3/uL (150-450); RED BLOOD COUNT 3.55 10^6/uL (4.35-5.55); RED CELL DISTRIBUTION WIDTH 14.7 % (11.5-14.0); WHITE BLOOD COUNT 12.1 10^3/uL (4.0-10.5)
[2019-11-23] MEDS: FUROSEMIDE INJ/PF 20 MG/2 ML SDV IV SCH (10:17)
[2019-11-23] MEDS: ATORVASTATIN CALCIUM 20 MG TABLET PO SCH (10:18)
[2019-11-23] MEDS: POTASSIUM CHLORIDE 20 MEQ PACKET PO SCH (10:18)
[2019-11-23] MEDS: PROPRANOLOL HCL 10 MG TABLET PO SCH ×2 (10:19→21:05)
[2019-11-23] MEDS: METOPROLOL SUCCINATE 50 MG TAB.SR.24H PO SCH (10:19)
[2019-11-23] MEDS: VALACYCLOVIR HCL 500 MG TABLET PO SCH (10:21)
[2019-11-23 10:32] LABS: ANION GAP 11 (5-19); BLOOD UREA NITROGEN 30 mg/dL (7-20); CALCIUM 8.2 mg/dL (8.4-10.2); CARBON DIOXIDE 23 mmol/L (22-30); CHLORIDE 97 mmol/L (98-107); GLUCOSE 222 mg/dL (75-110); POTASSIUM 3.8 mmol/L (3.6-5.0)
--- NOTE | 2019-11-23 14:08 | RADIOLOGY REPORT (SQ) ---
EXAM DESCRIPTION: VENOUS BILATERAL LOWER IMAGES COMPLETED DATE/TIME: 11/23/2019 1:43 pm REASON FOR STUDY: R/O DVT BILATERALLY COMPARISON: None. TECHNIQUE: Dynamic and static [place] scale and color images acquired of both lower extremity venous sy stems. Selected spectral images acquired with additional compression and augmentation maneuvers. Imag es stored on PACS. LIMITATIONS: None. FINDINGS: RIGHT LEG COMMON FEMORAL AND FEMORAL: Normal phasicity, compression and augmentation. No visualized echogenic m aterial on colunga scale. No defects on color images. POPLITEAL: Normal compression and augmentation. No visualized echogenic material on colunga scale. No de fects on color images. CALF VESSELS: Peroneal vein not visualized due to edema and body habitus. Normal compression and au gmentation. No visualized echogenic material on colunga scale. No defects on color image. GSV AND SSV: Normal compression. No visualized echogenic material on colunga scale. No defects on color images. ANY DEEP VENOUS INSUFFICIENCY: Not evaluated. ANY EVIDENCE OF POPLITEAL CYST: No. OTHER: No other significant finding. LEFT LEG COMMON FEMORAL AND FEMORAL: Normal phasicity, compression and augmentation. No visualized echogenic m aterial on colunga scale. No defects on color images. POPLITEAL: Normal compression and augmentation. No visualized echogenic material on colunga scale. No de fects on color images. CALF VESSELS: Peroneal vein not visualized due to edema and body habitus. Normal compression and au gmentation. No visualized echogenic material on colunga scale. No defects on color images. GSV AND SSV: Normal compression. No visualized echogenic material on colunga scale. No defects on color images. ANY DEEP VENOUS INSUFFICIENCY: Not evaluated. ANY EVIDENCE POPLITEAL CYST: No. OTHER: No other significant finding. IMPRESSION: 1. NO EVIDENCE DVT OR SVT IN EITHER LEG. Please see above. TECHNICAL DOCUMENTATION: JOB ID: [id number] 2010 [employer]- All Rights Reserved Reading location - IP/workstation name: [email or web address]
--- NOTE | 2019-11-23 17:57 | PDOC PROGRESS REPORT ---
Subjective Progress Note for:: 11/23/19 Subjective:: He feels well. Says that his breathing is back to baseline. Denies f chung/chills. States that his legs feel much better today. Reason For Visit: CELLULITIS OF LEFT LEG Physical Exam Vital Signs: Temp Pulse Resp BP Pulse Ox 97.8 F 89 20 106/52 L 100 11/23/19 11:03 11/23/19 11:03 11/23/19 11:03 11/23/19 11:03 11/23/19 11:03 Intake & Output 11/22/19 11/23/19 11/24/19 06:59 06:59 06:59 Intake Total 2800 2470 310 Output Total 1370 975 200 Balance 1430 1495 110 Weight 90.9 kg 91.2 kg General appearance: PRESENT: no acute distress Eye exam: ABSENT: scleral icterus Mouth exam: PRESENT: dry mucosa Neck exam: ABSENT: JVD Respiratory exam: PRESENT: clear to auscultation nikolas, unlabored Cardiovascular exam: PRESENT: RRR GI/Abdominal exam: PRESENT: normal bowel sounds, soft. ABSENT: tenderness Extremities exam: PRESENT: other - 2+ right and 3+ LLE swelling, much improved from prior + LLE would still weeping Neurological exam: PRESENT: alert, awake, oriented to person, oriented to place, oriented to situation Psychiatric exam: PRESENT: appropriate affect Results Laboratory Results: 11/23/19 09:44 11/23/19 09:44 11/23/19 11/23/19 09:44 09:44 WBC 12.1 H RBC 3.55 L Hgb 11.9 L Hct 35.0 L MCV 99 H MCH 33.6 H MCHC 34.1 RDW 14.7 H Plt Count 152 Sodium 131.0 L Potassium 3.8 Chloride 97 L Carbon Dioxide 23 Anion Gap 11 BUN 30 H Creatinine 1.10 Est GFR ( Amer) > 60 Glucose 222 H Calcium 8.2 L Magnesium 2.0 11/21/19 11/21/19 11/22/19 19:00 19:00 18:19 Creatine Kinase 79 Troponin I 0.160 0.087 NT-Pro-B Natriuret Pep 4030 H Impressions: Chest X-Ray 11/21/19 03:25 IMPRESSION: Cardiomegaly and low inspiratory lung volumes without a superimposed acute cardiopulmonary process. Venous Doppler Study 11/23/19 00:00 IMPRESSION: 1. NO EVIDENCE DVT OR SVT IN EITHER LEG. Please see above. Assessment and Plan - Diagnosis (1) Sepsis associated hypotension Is this a current diagnosis for this admission?: Yes (2) Cellulitis of left leg Is this a current diagnosis for this admission?: Yes (3) Hyperglycemia due to diabetes mellitus Is this a current diagnosis for this admission?: Yes - Plan Summary Summary: NOÉ TOBAR is an 84 year old male with HTN, HLD, DM2, bilateral lower extremity chronic venous stasis who presented 11/21/2019 with significant worsening of his lower extremity edema left greater than right. Sepsis associated hypotension: The patient meets criteria for sepsis with a serum creatinine greater than 1.2, total bilirubin greater than 1.2 and mean arterial pressure less than 70 all present on admission. Non-purulent cellulitis of left leg: most likely a streptococcal organism. The patient will be continued on Rocephin and received 2 days of clindamycin to suppress toxin production. - Blood cultures show NGTD and he is clinically improving. - WBC hovering between 11-12, unclear why, will continue antibiotics IV DM2 c/b hypo- and hyperglycemia: HbA1c 9.6 - diabetic diet - Accu-Cheks at mealtime and bedtime with sliding scale coverage - add Lantus 10 units HS Bilateral Leg Chronic venous stasis: he usually wears compression stockings. As his legs became more swollen he was not able to put them on. The patient would benefit from compression wraps. After the weekend we will try and obtain multilayer compression wraps in coordination with the wound care clinic. For now elevate lower extremities. Outpatient wound care clinic follow up post- discharge. Hypervolemic Hyponatremia: related to fluid retention, improving with diuresis Acute Hypoxemic Respiratory Failure: improving with diuresis, wean off O2 as tolerated Tachycardia: resolved with restarting home metoprolol and propranolol Dispo: PT evaluation pending. Likely discharge home with tomorrow. - Time Time Spent with patient: 35 or more minutes Anticipated Discharge Disposition: Home with Home Health Anticipated Discharge Timeframe: within 24 hours
[2019-11-23] MEDS: ASPIRIN 81 MG TABLET, ENT COATED PO SCH (21:06)
[2019-11-23] MEDS: INSULIN GLARGINE,HUM.REC.ANLOG 1,000 UNIT/10 ML VIAL SUBCUT SCH (21:51)
[2019-11-24 06:36] LABS: HEMATOCRIT 32.5 % (37.9-51.0); HEMOGLOBIN 11.1 g/dL (13.5-17.0); MEAN CORPUSCULAR HEMOGLOBIN 33.5 pg (27.0-33.4); MEAN CORPUSCULAR HGB CONC 34.1 g/dL (32.0-36.0); MEAN CORPUSCULAR VOLUME 98 fl (80-97); PLATELET COUNT 139 10^3/uL (150-450); RED BLOOD COUNT 3.31 10^6/uL (4.35-5.55); RED CELL DISTRIBUTION WIDTH 14.7 % (11.5-14.0); WHITE BLOOD COUNT 9.7 10^3/uL (4.0-10.5)
[2019-11-24 07:09] LABS: ANION GAP 6 (5-19); BLOOD UREA NITROGEN 26 mg/dL (7-20); CARBON DIOXIDE 24 mmol/L (22-30); CHLORIDE 101 mmol/L (98-107); GLUCOSE 183 mg/dL (75-110); POTASSIUM 3.7 mmol/L (3.6-5.0)
[2019-11-24] MEDS: INSULIN LISPRO 100 UNIT/ML 3 ML VIAL SUBCUT SCH ×4 (08:53→21:29)
[2019-11-24] MEDS: CEFTRIAXONE 1 GM/D5W RTU 1 GM/50 ML RTUPB IV SCH (08:53)
[2019-11-24] MEDS: ATORVASTATIN CALCIUM 20 MG TABLET PO SCH (09:20)
[2019-11-24] MEDS: PROPRANOLOL HCL 10 MG TABLET PO SCH ×2 (09:21→21:29)
[2019-11-24] MEDS: METOPROLOL SUCCINATE 50 MG TAB.SR.24H PO SCH (09:21)
[2019-11-24] MEDS: POTASSIUM CHLORIDE 20 MEQ PACKET PO SCH (09:21)
[2019-11-24] MEDS: VALACYCLOVIR HCL 500 MG TABLET PO SCH (09:21)
[2019-11-24] MEDS ORDERED: FUROSEMIDE INJ/PF 20 MG/2 ML SDV IV ONE (17:37)
--- NOTE | 2019-11-24 17:45 | PDOC PROGRESS REPORT ---
Subjective Progress Note for:: 11/24/19 Subjective:: He is feeling better. Legs are improving. No longer requiring supplemental O2. Reason For Visit: CELLULITIS OF LEFT LEG Physical Exam Vital Signs: Temp Pulse Resp BP Pulse Ox 98.1 F 80 16 113/52 L 100 11/24/19 11:48 11/24/19 14:00 11/24/19 13:57 11/24/19 11:48 11/24/19 13:57 Intake & Output 11/23/19 11/24/19 11/25/19 06:59 06:59 06:59 Intake Total 2470 1032 50 Output Total 975 775 Balance 1495 257 50 Weight 91.2 kg 90.5 kg General appearance: PRESENT: no acute distress Eye exam: ABSENT: scleral icterus Mouth exam: PRESENT: moist Neck exam: ABSENT: JVD Respiratory exam: PRESENT: clear to auscultation nikolas GI/Abdominal exam: PRESENT: normal bowel sounds, soft. ABSENT: tenderness Extremities exam: PRESENT: other - 2+ RLE and 4+ LLE; LLE still weeping Neurological exam: PRESENT: alert, awake, oriented to person, oriented to place, oriented to situation Psychiatric exam: PRESENT: appropriate affect Results Laboratory Results: 11/24/19 05:32 11/24/19 05:32 11/24/19 11/24/19 05:32 05:32 WBC 9.7 RBC 3.31 L Hgb 11.1 L Hct 32.5 L MCV 98 H MCH 33.5 H MCHC 34.1 RDW 14.7 H Plt Count 139 L Sodium 131.2 L Potassium 3.7 Chloride 101 Carbon Dioxide 24 Anion Gap 6 BUN 26 H Creatinine 1.02 Est GFR ( Amer) > 60 Glucose 183 H Calcium 8.0 L Magnesium 2.0 11/21/19 11/21/19 11/22/19 19:00 19:00 18:19 Creatine Kinase 79 Troponin I 0.160 0.087 NT-Pro-B Natriuret Pep 4030 H Impressions: Chest X-Ray 11/21/19 03:25 IMPRESSION: Cardiomegaly and low inspiratory lung volumes without a superimposed acute cardiopulmonary process. Venous Doppler Study 11/23/19 00:00 IMPRESSION: 1. NO EVIDENCE DVT OR SVT IN EITHER LEG. Please see above. Assessment and Plan - Diagnosis (1) Sepsis associated hypotension Is this a current diagnosis for this admission?: Yes (2) Cellulitis of left leg Is this a current diagnosis for this admission?: Yes (3) Hyperglycemia due to diabetes mellitus Is this a current diagnosis for this admission?: Yes - Plan Summary Summary: NOÉ TOBAR is an 84 year old male with HTN, HLD, DM2, bilateral lower extremity chronic venous stasis who presented 11/21/2019 with significant worsening of his lower extremity edema left greater than right. Sepsis associated hypotension: The patient meets criteria for sepsis with a serum creatinine greater than 1.2, total bilirubin greater than 1.2 and mean arterial pressure less than 70 all present on admission. Non-purulent cellulitis of left leg: most likely a streptococcal organism. He has been treated with Rocephin and also received 2 days of clindamycin to suppress toxin production. Blood cultures show NGTD and he is clinically improving. Uncontrolled DM2 c/b hypo- and hyperglycemia: HbA1c 9.6 on admission. Per his family, he does not check glucose at home and frequently eats high-carb foods like candy. He frequently has hyper- and hypo-glycemia at home. He is a poor candidate for ongoing insulin usage at home and is at high risk for complications of insulin due to non-adherence, but options are limited due to very elevated HbA1c. I have encouraged him and his children to take a more active role in his medication administration and monitoring at home. Home Health RN will hopefully also be helpful in educating the patient/family post- discharge. Bilateral Leg Chronic venous stasis: he usually wears compression stockings. As his legs became more swollen he was not able to put them on. The patient would benefit from compression wraps. He will be referred to the would clinic on discharge for multilayer compression wraps and ongoing wound care follow up. For now, elevate lower extremities. Outpatient wound care clinic follow up post- discharge. Acute Hypoxemic Respiratory Failure: resolved with diuresis and he is now back on room air. Dispo: discharge home with tomorrow for ongoing PT/RN needs Code Status: DNR/DNI - Time Time Spent with patient: 35 or more minutes Anticipated Discharge Disposition: Home with Home Health Anticipated Discharge Timeframe: within 24 hours
[2019-11-24] MEDS: INSULIN GLARGINE,HUM.REC.ANLOG 1,000 UNIT/10 ML VIAL SUBCUT SCH (21:29)
[2019-11-24] MEDS: ASPIRIN 81 MG TABLET, ENT COATED PO SCH (21:29)
[2019-11-25 04:36] LABS: HEMATOCRIT 32.4 % (37.9-51.0); HEMOGLOBIN 11.2 g/dL (13.5-17.0); MEAN CORPUSCULAR HEMOGLOBIN 33.6 pg (27.0-33.4); MEAN CORPUSCULAR HGB CONC 34.5 g/dL (32.0-36.0); MEAN CORPUSCULAR VOLUME 98 fl (80-97); PLATELET COUNT 161 10^3/uL (150-450); RED BLOOD COUNT 3.32 10^6/uL (4.35-5.55); RED CELL DISTRIBUTION WIDTH 14.4 % (11.5-14.0); WHITE BLOOD COUNT 10.7 10^3/uL (4.0-10.5)
[2019-11-25 04:57] LABS: ANION GAP 9 (5-19); BLOOD UREA NITROGEN 20 mg/dL (7-20); CALCIUM 8.1 mg/dL (8.4-10.2); CARBON DIOXIDE 25 mmol/L (22-30); CHLORIDE 99 mmol/L (98-107); GLUCOSE 167 mg/dL (75-110); POTASSIUM 4.2 mmol/L (3.6-5.0)
[2019-11-25 09:26] VITALS: BP 149/72
--- NOTE | 2019-11-25 12:29 | PDOC DISCHARGE SUMMARY ---
Impression - Admit/DC Date/PCP Admission Date/Primary Care Provider: 11/21/19 05:15 ALICE LEDEZMA MD Discharge Date: 11/25/19 - Discharge Diagnosis (1) Sepsis associated hypotension Is this a current diagnosis for this admission?: Yes (2) Cellulitis of left leg Is this a current diagnosis for this admission?: Yes (3) Hyperglycemia due to diabetes mellitus Is this a current diagnosis for this admission?: Yes - Assessment Summary: NOÉ TOBAR is an 84 year old male with HTN, HLD, DM2, bilateral lower extremity chronic venous stasis who presented 11/21/2019 with significant worsening of his lower extremity edema, left greater than right. Sepsis associated hypotension: The patient met criteria for sepsis with a serum creatinine greater than 1.2, total bilirubin greater than 1.2 and mean arterial pressure less than 70 all present on admission. Non-purulent cellulitis of left leg: most likely a streptococcal organism. He has been treated with Rocephin and also received 2 days of clindamycin to suppress toxin production. Blood cultures showed no growth. Uncontrolled DM2 c/b hypo- and hyperglycemia: HbA1c 9.6 on admission. Per his family, he does not check glucose at home and frequently eats high-carb foods like candy. He frequently has hyper- and hypo-glycemia at home (as low as 40 and as high as the 700s). He is a poor candidate for ongoing insulin usage at home and is at high risk for complications of insulin due to non-adherence. I have started metformin and glipizide on discharge. He will have close outpatient PCP follow up and should have a repeat HbA1c in 3 months to see if he needs the addition of a third oral agent. Bilateral Leg Chronic venous stasis: he usually wears compression stockings. As his legs became more swollen, he was not able to put them on. The patient would benefit from compression wraps. He will be referred to the would clinic on discharge for multilayer compression wraps and ongoing wound care follow up. For now, elevate lower extremities. Close outpatient wound care clinic follow up post-discharge. Acute Hypoxemic Respiratory Failure: resolved with diuresis and he is now back on room air. He will be discharged home with Home Health for ongoing PT/RN needs. - Additional Information Resuscitation Status: Do Not Resuscitate Discharge Diet: Cardiac, Diabetic Discharge Activity: Activity As Tolerated, Keep Legs Elevated Referrals: [facility] [Provider Group] (Patient has to make own appointment. [facility] does not allow anyone but patient to make appointment.) Wound Care [Provider Group] - 12/08/19 10:00 am Prescriptions: Glipizide [Glipizide Xl] 10 mg PO DAILY #30 tab.er.24 Cephalexin Monohydrate [Keflex 500 mg Capsule] 500 mg PO QID #20 capsule Furosemide [Lasix 40 mg Tablet] 40 mg PO QAM #30 tablet Metformin HCl 1,000 mg PO BID #60 tablet Home Medications: Aspirin [Aspirin EC] 81 mg PO DAILY 06/24/13 Atorvastatin Calcium 40 mg PO DAILY 06/24/13 Loratadine [Claritin] 10 mg PO DAILY 06/24/13 Metoprolol Succinate [Toprol Xl] 50 mg PO DAILY 06/24/13 Valacyclovir HCl [Valacyclovir] 1,000 mg PO DAILY 06/24/13 Propranolol HCl [Inderal 10 mg Tablet] 10 mg PO BID 11/21/19 Cephalexin Monohydrate [Keflex 500 mg Capsule] 500 mg PO QID #20 capsule 11/25/19 Furosemide [Lasix 40 mg Tablet] 40 mg PO QAM #30 tablet 11/25/19 Glipizide [Glipizide Xl] 10 mg PO DAILY #30 tab.er.24 11/25/19 Metformin HCl 1,000 mg PO BID #60 tablet 11/25/19 History of Present Illiness History of Present Illness: NOÉ TOABR is a 84 year old male Physical Exam Vital Signs: Temp Pulse Resp BP Pulse Ox 98.0 F 83 16 149/72 H 97 11/25/19 09:25 11/25/19 09:25 11/25/19 09:25 11/25/19 09:25 11/25/19 09:25 Intake & Output 11/24/19 11/25/19 11/26/19 06:59 06:59 06:59 Intake Total 1032 542 Output Total 517 7155 Balance 257 -883 Weight 90.5 kg 86 kg Results Laboratory Results: WBC 10.7 10^3/uL (4.0-10.5) H 11/25/19 03:47 RBC 3.32 10^6/uL (4.35-5.55) L 11/25/19 03:47 Hgb 11.2 g/dL (13.5-17.0) L 11/25/19 03:47 Hct 32.4 % (37.9-51.0) L 11/25/19 03:47 MCV 98 fl (80-97) H 11/25/19 03:47 MCH 33.6 pg (27.0-33.4) H 11/25/19 03:47 MCHC 34.5 g/dL (32.0-36.0) 11/25/19 03:47 RDW 14.4 % (11.5-14.0) H 11/25/19 03:47 Plt Count 161 10^3/uL (150-450) 11/25/19 03:47 Lymph % (Auto) Not Reportable 11/21/19 19:00 [place] % (Auto) Not Reportable 11/21/19 19:00 Eos % (Auto) Not Reportable 11/21/19 19:00 Baso % (Auto) Not Reportable 11/21/19 19:00 Absolute Neuts (auto) Not Reportable 11/21/19 19:00 Absolute Lymphs (auto) Not Reportable 11/21/19 19:00 Absolute Monos (auto) Not Reportable 11/21/19 19:00 Absolute Eos (auto) Not Reportable 11/21/19 19:00 Absolute Basos (auto) Not Reportable 11/21/19 19:00 Total Counted 100 11/21/19 19:00 Seg Neutrophils % Not Reportable 11/21/19 19:00 Seg Neuts % (Manual) 75 % (42-78) 11/21/19 19:00 Band Neutrophils % 6 % (3-5) H 11/21/19 19:00 Lymphocytes % (Manual) 9 % (13-45) L 11/21/19 19:00 Atypical Lymphs % 4 % (0) 11/21/19 19:00 Monocytes % (Manual) 4 % (3-13) 11/21/19 19:00 Eosinophils % (Manual) 0 % (0-6) 11/21/19 19:00 Basophils % (Manual) 0 % (0-2) 11/21/19 19:00 Metamyelocytes % 2 % (0-1) H 11/21/19 19:00 Abs Neuts (Manual) 9.0 10^3/uL (1.7-8.2) H 11/21/19 19:00 Abs Lymphs (Manual) 1.4 10^3/uL (0.5-4.7) 11/21/19 19:00 Abs Monocytes (Manual) 0.4 10^3/uL (0.1-1.4) 11/21/19 19:00 Absolute Eos (Manual) 0.0 10^3/uL (0.0-0.6) 11/21/19 19:00 Abs Basophils (Manual) 0.0 10^3/uL (0.0-0.2) 11/21/19 19:00 Toxic Granulation SLIGHT 11/21/19 19:00 Toxic Vacuolation PRESENT 11/21/19 19:00 Dohle Bodies PRESENT 11/21/19 03:36 Clumped Platelets PRESENT 11/21/19 19:00 Platelet Comment DECREASED 11/21/19 19:00 Polychromasia SLIGHT 11/21/19 19:00 Anisocytosis SLIGHT 11/21/19 19:00 Schistocytes SLIGHT 11/21/19 19:00 PT 15.2 SEC (11.4-15.4) 11/21/19 19:00 INR 1.18 11/21/19 19:00 APTT 40.0 SEC (23.5-35.8) H 11/21/19 19:00 Fibrinogen 619 mg/dL (209-497) H 11/21/19 19:00 D-Dimer 11.34 ug/mL (0.00-0.50) H 11/21/19 19:00 Carbonic Acid 0.99 mmol/L (1.05-1.35) L 11/21/19 20:50 HCO3/H2CO3 Ratio 23:1 11/21/19 20:50 ABG pH 7.46 (7.35-7.45) H 11/21/19 20:50 ABG pCO2 32.8 mmHg (35-45) L 11/21/19 20:50 ABG pO2 83.5 mmHg (80-100) 11/21/19 20:50 ABG HCO3 22.8 mmol/L (20-24) 11/21/19 20:50 ABG Total CO2 23.8 mmol/L (23-27) 11/21/19 20:50 ABG O2 Saturation 96.8 % (94-98) 11/21/19 20:50 ABG Base Excess -0.4 mmol/L 11/21/19 20:50 FiO2 2L 11/21/19 20:50 Sodium 132.9 mmol/L (137-145) L 11/25/19 03:47 Potassium 4.2 mmol/L (3.6-5.0) 11/25/19 03:47 Chloride 99 mmol/L (98-107) 11/25/19 03:47 Carbon Dioxide 25 mmol/L (22-30) 11/25/19 03:47 Anion Gap 9 (5-19) 11/25/19 03:47 BUN 20 mg/dL (7-20) 11/25/19 03:47 Creatinine 0.88 mg/dL (0.52-1.25) 11/25/19 03:47 Est GFR ( Amer) > 60 (>60) 11/25/19 03:47 Est GFR (MDRD) Non-Af > 60 (>60) 11/25/19 03:47 Glucose 167 mg/dL (75-110) H 11/25/19 03:47 POC Glucose 186 mg/dL (70-110) H 11/25/19 09:04 Hemoglobin A1c % 9.6 % (4.7-6.0) H 11/23/19 09:44 Lactic Acid 1.7 mmol/L (0.7-2.1) 11/21/19 19:00 Calcium 8.1 mg/dL (8.4-10.2) L 11/25/19 03:47 Magnesium 2.0 mg/dL (1.6-2.3) 11/24/19 05:32 Total Bilirubin 1.4 mg/dL (0.2-1.3) H 11/21/19 19:00 Direct Bilirubin 1.0 mg/dL (0.0-0.4) H 11/21/19 19:00 Neonat Total Bilirubin Not Reportable 11/21/19 19:00 Neonat Direct Bilirubin Not Reportable 11/21/19 19:00 Neonat Indirect Bili Not Reportable 11/21/19 19:00 AST 29 U/L (17-59) 11/21/19 19:00 ALT 18 U/L (<50) 11/21/19 19:00 Alkaline Phosphatase 66 U/L (38-126) 11/21/19 19:00 Lactate Dehydrogenase 147 U/L (120-246) 11/21/19 19:00 Creatine Kinase 79 U/L (55-170) 11/21/19 19:00 Troponin I 0.087 ng/mL 11/22/19 18:19 C-Reactive Protein 382.6 mg/L (<10.0) H 11/21/19 19:00 NT-Pro-B Natriuret Pep 4030 pg/mL (<450) H 11/21/19 19:00 Total Protein 5.5 g/dL (6.3-8.2) L 11/21/19 19:00 Albumin 2.7 g/dL (3.5-5.0) L 11/21/19 19:00 COVID-19 Source NASOPHARYNGEAL 11/21/19 19:00 COVID-19 (LORAINE) NOT DETECTED 11/21/19 19:00 Anti-Streptolysin Titr <200 IU/mL (<200) 11/21/19 03:36 11/21/19 11/22/19 19:00 18:19 Troponin I 0.160 0.087 NT-Pro-B Natriuret Pep 4030 H Impressions: Chest X-Ray 11/21/19 00:00 IMPRESSION: Short interval development of findings suggestive of CHF exacerbation. Chest X-Ray 11/21/19 03:25 IMPRESSION: Cardiomegaly and low inspiratory lung volumes without a superimposed acute cardiopulmonary process. Venous Doppler Study 11/23/19 00:00 IMPRESSION: 1. NO EVIDENCE DVT OR SVT IN EITHER LEG. Please see above. Stroke Is this a Stroke Patient?: No Acute Heart Failure Is this a Heart Failure Patient?: No
== END 2019-11-25 11:15 | disposition home health service (06) | DRG 871 ==
LOC: ER 03:00 → EH 05:15 → 3S 08:49 → 3W 20:05
PROVIDERS: ADMIT Hospitalist; ATTEND Hospitalist
DX: A41.9 Sepsis, unspecified organism (principal); J96.01 Acute respiratory failure with hypoxia; L03.116 Cellulitis of left lower limb; E87.1 Hypo-osmolality and hyponatremia; I87.8 Other specified disorders of veins; Z20.828 Contact with and (suspected) exposure to other viral communicable diseases; I89.0 Lymphedema, not elsewhere classified; I50.9 Heart failure, unspecified; E11.65 Type 2 diabetes mellitus with hyperglycemia; I11.0 Hypertensive heart disease with heart failure; E11.649 Type 2 diabetes mellitus with hypoglycemia without coma; E78.5 Hyperlipidemia, unspecified; K21.9 Gastro-esophageal reflux disease without esophagitis; D18.09 Hemangioma of other sites; Z79.84 Long term (current) use of oral hypoglycemic drugs; Z79.82 Long term (current) use of aspirin; Z79.4 Long term (current) use of insulin; Z79.899 Other long term (current) drug therapy; Z66 Do not resuscitate
CPT/HCPCS: 36415; 71045; 80048; 80053; 82550; 82803; 82962; 83036; 83605; 83615; 83735; 83880; 84484; 85025; 85027; 85379; 85384; 85610; 85730; 86060; 86140; 87040; 87070; 87635; 93005; 93010; 93970; 96365; 96375; 99285; C9803; J0696; J1815; J1940; J3370; J3490; J7042; J7120

== ENCOUNTER 2019-12-22 15:55 | Emergency (ER) | payer MEDICARE ==
[2019-12-22 16:55] LABS: ABSOLUTE MONOCYTES (AUTO) 0.7 10^3/uL (0.1-1.4); ABSOLUTE NEUT (AUTO) 6.2 10^3/uL (1.7-8.2); BASOPHILS % (AUTO) 0.3 % (0-2); EOSINOPHILS % (AUTO) 0.4 % (0-6); HEMATOCRIT 35.4 % (37.9-51.0); HEMOGLOBIN 12.2 g/dL (13.5-17.0); LYMPHOCYTES % (AUTO) 29.7 % (13-45); MEAN CORPUSCULAR HEMOGLOBIN 33.3 pg (27.0-33.4); MEAN CORPUSCULAR HGB CONC 34.3 g/dL (32.0-36.0); MEAN CORPUSCULAR VOLUME 97 fl (80-97); MONOCYTES % (AUTO) 7.2 % (3-13); PLATELET COUNT 227 10^3/uL (150-450); RED BLOOD COUNT 3.66 10^6/uL (4.35-5.55); RED CELL DISTRIBUTION WIDTH 14.6 % (11.5-14.0); SEGMENTED NEUTROPHILS % (AUTO) 62.4 % (42-78); TOTAL CELLS COUNTED % (AUTO) 100 %
--- NOTE | 2019-12-22 17:09 | ER Document Report ---
ED General - General Chief Complaint: Abnormal Lab Results Stated Complaint: ABNORMAL LABS Time Seen by Provider: 12/22/19 17:04 Primary Care Provider: JOSIAS JUNIOR MD [Primary Care Provider] - Follow up as needed Mode of Arrival: Medic Information source: Patient Notes: PRIOR ADMIT/ DISCHARGE last month Discharge Date: 11/25/19 - Discharge Diagnosis (1) Sepsis associated hypotension Is this a current diagnosis for this admission?: Yes (2) Cellulitis of left leg Is this a current diagnosis for this admission?: Yes (3) Hyperglycemia due to diabetes mellitus Is this a current diagnosis for this admission?: Yes - Assessment Summary: NOÉ TOBAR is an 84 year old male with HTN, HLD, DM2, bilateral lower extremity chronic venous stasis who presented 11/21/2019 with significant worsening of his lower extremity edema, left greater than right. Sepsis associated hypotension: The patient met criteria for sepsis with a serum creatinine greater than 1.2, total bilirubin greater than 1.2 and mean arterial pressure less than 70 all present on admission. Non-purulent cellulitis of left leg: most likely a streptococcal organism. He has been treated with Rocephin and also received 2 days of clindamycin to suppress toxin production. Blood cultures showed no growth. Uncontrolled DM2 c/b hypo- and hyperglycemia: HbA1c 9.6 on admission. Per his family, he does not check glucose at home and frequently eats high-carb foods like candy. He frequently has hyper- and hypo-glycemia at home (as low as 40 and as high as the 700s). He is a poor candidate for ongoing insulin usage at home and is at high risk for complications of insulin due to non-adherence. I have started metformin and glipizide on discharge. He will have close outpatient PCP follow up and should have a repeat HbA1c in 3 months to see if he needs the addition of a third oral agent. Bilateral Leg Chronic venous stasis: he usually wears compression stockings. As his legs became more swollen, he was not able to put them on. The patient would benefit from compression wraps. He will be referred to the would clinic on discharge for multilayer compression wraps and ongoing wound care follow up. For now, elevate lower extremities. Close outpatient wound care clinic follow up post-discharge. Acute Hypoxemic Respiratory Failure: resolved with diuresis and he is now back on room air. He will be discharged home with Home Health for ongoing PT/RN needs. - Additional Information Resuscitation Status: Do Not Resuscitate Discharge Diet: Cardiac, Diabetic Discharge Activity: Activity As Tolerated, Keep Legs Elevated Referrals: [facility] [Provider Group] (Patient has to make own appointment. [facility] does not allow anyone but patient to make appointment.) Wound Care [Provider Group] - 12/08/19 10:00 am Prescriptions: Glipizide [Glipizide Xl] 10 mg PO DAILY #30 tab.er.24 Cephalexin Monohydrate [Keflex 500 mg Capsule] 500 mg PO QID #20 capsule Furosemide [Lasix 40 mg Tablet] 40 mg PO QAM #30 tablet Metformin HCl 1,000 mg PO BID #60 tablet 12/22/19 16:46 - ED Nursing Note by BLAKE QUIÑONEZ Num: [id number] : 1935 Patient Age: 84 Pt presents to the ED via EMS. Pt arrives to the ED via [facility] with a chief complaint of abnormal labs. Pt was reported to be sent to the ED for an abnormal lab (creatinine) and to possible diurese here in the ED. Pt has a history of CHF and edema. Pt was reported to have wounds to his bilateral lower extremities without injury. Pt reports to be nauseous as well. Pt denies a cough and or any other complications at this time. Pt is on 2L of oxygen via NC. Pt denies any pain. Pt is AOx4 and able to speak in full sentences. MY NOTES TODAY 22 DEC 2019 84-year-old male arrives from [facility] with chief complaint of feeling tired and sleepy and having no appetite for the last 3 weeks. Patient reports since he went to [facility] he does not feel very good. He says he is lost 26 pounds since he arrived at [facility]. He reported the first day he had 24 hours of belching and has felt poorly since with sore throat and no energy and cool and clammy. He says he has had a ferrer test weekly x3 that were all negative. He has his legs wrapped and Koban and stasis dermatitis bandages. TRAVEL OUTSIDE OF THE [place] IN LAST 30 DAYS: No - HPI Onset: Other - x 3 weeks Onset/Duration: Persistent Quality of pain: Other - tiredness Severity: Mild Pain Level: 1 Associated symptoms: Nausea, Weakness - Related Data Allergies/Adverse Reactions: No Known Drug Allergies Allergy (Verified 06/24/13 07:12) Past Medical History - General Information source: Patient - Social History Smoking Status: Never Smoker Cigarette use (# per day): No Chew tobacco use (# tins/day): No Smoking Education Provided: No Frequency of alcohol use: None Drug Abuse: None Lives with: [facility] Family History: Reviewed & Not Pertinent, Malignancy, Other - Myasthenia gravis Patient has suicidal ideation: No Patient has homicidal ideation: No - Past Medical History Cardiac Medical History: Reports: Hx Hypercholesterolemia, Hx Hypertension Denies: Hx Coronary Artery Disease, Hx Heart Attack Pulmonary Medical History: Reports: Hx Pneumonia - A TEENAGER Denies: Hx Asthma, Hx Bronchitis, Hx COPD Neurological Medical History: Denies: Hx Cerebrovascular Accident, Hx Seizures Endocrine Medical History: Reports: Hx Diabetes Mellitus Type 2 Renal/ Medical History: Reports: Hx Kidney Stones GI Medical History: Reports: Hx Gastroesophageal Reflux Disease Musculoskeletal Medical History: Denies Hx Arthritis Psychiatric Medical History: Denies: Hx Depression Past Surgical History: Reports: Hx Appendectomy, Hx Cardiac Catheterization, Hx Tonsillectomy - Immunizations Hx Diphtheria, Pertussis, Tetanus Vaccination: Yes - 5-10 yrs ago Hx Pneumococcal Vaccination: 03/11/07 Review of Systems - Review of Systems Constitutional: See HPI, Weakness, Recent illness EENT: See HPI, Throat pain, Mouth pain Cardiovascular: No symptoms reported Respiratory: No symptoms reported Gastrointestinal: No symptoms reported Genitourinary: No symptoms reported Male Genitourinary: No symptoms reported Musculoskeletal: See HPI, Joint swelling, Leg swelling, Ankle swelling Skin: No symptoms reported Hematologic/Lymphatic: No symptoms reported Neurological/Psychological: See HPI, Weakness -: Yes All other systems reviewed and negative Physical Exam - Vital signs Vitals: Temp Resp BP Pulse Ox 98.8 F 20 111/62 100 12/22/19 16:32 12/22/19 16:32 12/22/19 16:32 12/22/19 16:32 Interpretation: Normal - General General appearance: Appears well, Alert - HEENT Head: Normocephalic, Atraumatic Eyes: Normal Pupils: PERRL Sinus: Normal Nasal: Normal Mucous membranes: Dry Pharynx: Erythema, Other - injected post pharynx - Respiratory Respiratory status: No respiratory distress Chest status: Nontender Breath sounds: Normal Chest palpation: Normal - Cardiovascular Rhythm: Regular Heart sounds: Normal auscultation Murmur: No - Abdominal Inspection: Normal Distension: No distension Bowel sounds: Normal Tenderness: Nontender Organomegaly: No organomegaly - Rectal Prostate: Other - deferred - Genitourinary Scrotum: Other - deferred - Back Back: Normal, Nontender - Extremities General upper extremity: Normal inspection, Nontender, Normal color, Normal ROM, Normal temperature General lower extremity: Normal inspection, Nontender, Normal color, Normal ROM, Normal temperature, Normal weight bearing. No: Jeri's sign - Neurological Neuro grossly intact: Yes Cognition: Normal Orientation: AAOx4 [place] Coma Scale Eye Opening: Spontaneous [place] Coma Scale Verbal: Oriented [place] Coma Scale Motor: Obeys Commands [place] Coma Scale Total: 15 Speech: Normal Motor strength normal: LUE, RUE, LLE, RLE Sensory: Normal - Psychological Associated symptoms: Normal affect, Normal mood - Skin Skin Temperature: Warm Skin Moisture: Dry Skin Color: Normal Course - Vital Signs Vital signs: Temp Pulse Resp BP Pulse Ox 98.8 F 18 91/54 L 98 12/22/19 16:32 12/22/19 22:01 12/22/19 22:01 12/22/19 22:01 - Laboratory Result Diagrams: 12/22/19 16:40 12/22/19 16:40 Laboratory results interpreted by me: 12/22/19 12/22/19 12/22/19 16:40 16:40 17:40 RBC 3.66 L Hgb 12.2 L Hct 35.4 L RDW 14.6 H Sodium 133.8 L Chloride 95 L BUN 49 H Creatinine 1.79 H Est GFR ( Amer) 44 L Est GFR (MDRD) Non-Af 36 L Glucose 176 H Total Bilirubin 1.4 H Direct Bilirubin 0.7 H Total Protein 6.2 L Albumin 3.2 L Urine Glucose (UA) 50 H - Diagnostic Test Radiology reviewed: Reports reviewed - EKG Interpretation by Me EKG shows normal: Sinus rhythm Rate: Normal Rhythm: NSR - 57 bpm history of atrial flutter with AV block left axis deviation LVH with secondary repolarization Critical Care Note - Critical Care Note Comments: I discussed his case with Dr. Nails at 2130 and he advises he will evaluate this patient as outpatient. Discharge - Discharge Clinical Impression: Dehydration, FTT (failure to thrive) in adult Pharyngitis Qualifiers: Pharyngitis/tonsillitis etiology: unspecified etiology Qualified Code(s): J02.9 - Acute pharyngitis, unspecified Atrial fibrillation Qualifiers: Atrial fibrillation type: unspecified Qualified Code(s): I48.91 - Unspecified atrial fibrillation Condition: Good Disposition: HOME, SELF-CARE Additional Instructions: Follow-up with personal doctor this week ; take medications as directed; return to ER as needed for true emergencies; encourage fluids up to three quarters of a liter per day.; Prescriptions: B1,B2,B3,B6,B12/Dexpan/Zn/Berny [Eldertonic Elixir] 5 ml PO BID #473 ml Referrals: JOSIAS JUNIOR MD [Primary Care Provider] - Follow up as needed JORDAN NAILS MD [ACTIVE STAFF] - Follow up as needed
[2019-12-22 17:19] LABS: ALBUMIN 3.2 g/dL (3.5-5.0); ALKALINE PHOSPHATASE 108 U/L (38-126); ANION GAP 12 (5-19); ASPARTATE AMINO TRANSFERASE 39 U/L (17-59); BILIRUBIN,DIRECT 0.7 mg/dL (0.0-0.4); BILIRUBIN,TOTAL 1.4 mg/dL (0.2-1.3); BLOOD UREA NITROGEN 49 mg/dL (7-20); CALCIUM 8.7 mg/dL (8.4-10.2); CARBON DIOXIDE 27 mmol/L (22-30); CHLORIDE 95 mmol/L (98-107); GLUCOSE 176 mg/dL (75-110); POTASSIUM 4.3 mmol/L (3.6-5.0); TOTAL PROTEIN 6.2 g/dL (6.3-8.2)
--- NOTE | 2019-12-22 17:23 | RADIOLOGY REPORT (SQ) ---
EXAM DESCRIPTION: CHEST SINGLE VIEW IMAGES COMPLETED DATE/TIME: 12/22/2019 4:03 pm REASON FOR STUDY: shortness of breath COMPARISON: 11/21/2019 EXAM PARAMETERS: NUMBER OF VIEWS: One view. TECHNIQUE: Single frontal radiographic view of the chest acquired. RADIATION DOSE: NA LIMITATIONS: None. FINDINGS: LUNGS AND PLEURA: The lungs are hyperinflated. There is improved aeration in both lungs s veena previous examination. No focal consolidation or pleural effusion. No pneumothorax. MEDIASTINUM AND HILAR STRUCTURES: No masses. Contour normal. HEART AND VASCULAR STRUCTURES: Heart normal in size. Normal vasculature. BONES: No acute findings. HARDWARE: None in the chest. OTHER: No other significant finding. IMPRESSION: No acute cardiopulmonary disease. Resolved pulmonary edema since prior. TECHNICAL DOCUMENTATION: JOB ID: [id number] 2010 [employer]- All Rights Reserved Reading location - IP/workstation name: [email or web address]
[2019-12-22] MEDS ORDERED: NORMAL SALINE 1000 ML 1,000 ML IV ONE (17:43)
[2019-12-22 18:00] LABS: APPEARANCE,URINE CLEAR; BILIRUBIN,URINE NEGATIVE (NEGATIVE); COLOR,URINE YELLOW; GLUCOSE, URINE 50 mg/dL (NEGATIVE); KETONES,URINE NEGATIVE (NEGATIVE); LEUKOCYTE ESTERASE,URINE NEGATIVE (NEGATIVE); NITRITE,URINE NEGATIVE (NEGATIVE); PROTEIN,URINE NEGATIVE (NEGATIVE); URINE SPECIFIC GRAVITY 1.008; UROBILINOGEN,URINE NEGATIVE mg/dL (<2.0)
--- NOTE | 2019-12-22 19:53 | EKG REPORT ---
SEVERITY:- ABNORMAL ECG - SINUS RHYTHM LEFT AXIS DEVIATION LVH WITH SECONDARY REPOLARIZATION ABNORMALITY : Confirmed by: Shannan Waddell 22-Dec-2019 19:53:06
[2019-12-22] MEDS ORDERED: CYPROHEPTADINE HCL 4 MG TABLET PO ONE (21:27)
[2019-12-22] MEDS ORDERED: AZITHROMYCIN 250 MG TABLET PO ONE (21:31)
[2019-12-22 22:13] VITALS: BP 91/54
== END 2019-12-22 22:45 | disposition home or self-care (01) ==
LOC: ER 15:55
DX: J02.9 Acute pharyngitis, unspecified (principal); I48.91 Unspecified atrial fibrillation; R60.9 Edema, unspecified; E86.0 Dehydration; R79.89 Other specified abnormal findings of blood chemistry; R62.7 Adult failure to thrive; I50.9 Heart failure, unspecified; E11.9 Type 2 diabetes mellitus without complications; Z66 Do not resuscitate
CPT/HCPCS: 93005; 99285; 96360; 36415; 87070; 87880; 85025; 80053; 81001; 71045; 93010; A9270 ×2; J7030; J3490

== ENCOUNTER → 2020-01-05 | Outpatient (CLI) | payer MEDICARE, OTHER | LOC: OD 11:46 | PROVIDERS: ATTEND Family Medicine | DX: E04.1 Nontoxic single thyroid nodule (principal); I48.91 Unspecified atrial fibrillation | CPT/HCPCS: 84443 ==

== ENCOUNTER 2020-03-17 15:29 | Emergency (ER) | payer MEDICARE ==
[2020-03-17 16:46] LABS: ABSOLUTE LYMPHOCYTES (AUTO) 1.7 10^3/uL (0.5-4.7); ABSOLUTE MONOCYTES (AUTO) 0.5 10^3/uL (0.1-1.4); ABSOLUTE NEUT (AUTO) 3.8 10^3/uL (1.7-8.2); BASOPHILS % (AUTO) 0.3 % (0-2); HEMATOCRIT 39.4 % (37.9-51.0); HEMOGLOBIN 13.1 g/dL (13.5-17.0); LYMPHOCYTES % (AUTO) 28.8 % (13-45); MEAN CORPUSCULAR HEMOGLOBIN 31.8 pg (27.0-33.4); MEAN CORPUSCULAR HGB CONC 33.4 g/dL (32.0-36.0); MEAN CORPUSCULAR VOLUME 95 fl (80-97); PLATELET COUNT 157 10^3/uL (150-450); RED BLOOD COUNT 4.13 10^6/uL (4.35-5.55); RED CELL DISTRIBUTION WIDTH 14.8 % (11.5-14.0); SEGMENTED NEUTROPHILS % (AUTO) 62.9 % (42-78); TOTAL CELLS COUNTED % (AUTO) 100 %
[2020-03-17 16:48] LABS: ALBUMIN 3.3 g/dL (3.5-5.0); ALKALINE PHOSPHATASE 68 U/L (38-126); ANION GAP 8 (5-19); ASPARTATE AMINO TRANSFERASE 57 U/L (17-59); BILIRUBIN,DIRECT 0.4 mg/dL (0.0-0.4); BILIRUBIN,TOTAL 0.5 mg/dL (0.2-1.3); BLOOD UREA NITROGEN 30 mg/dL (7-20); CALCIUM 8.7 mg/dL (8.4-10.2); CARBON DIOXIDE 22 mmol/L (22-30); CHLORIDE 99 mmol/L (98-107); GLUCOSE 138 mg/dL (75-110); POTASSIUM 5.4 mmol/L (3.6-5.0); TOTAL PROTEIN 6.2 g/dL (6.3-8.2)
--- NOTE | 2020-03-17 17:37 | RADIOLOGY REPORT (SQ) ---
EXAM DESCRIPTION: CHEST SINGLE VIEW IMAGES COMPLETED DATE/TIME: 03/17/2020 4:01 pm REASON FOR STUDY: shortness of breath COMPARISON: 12/22/2019 EXAM PARAMETERS: NUMBER OF VIEWS: One view. TECHNIQUE: Single frontal radiographic view of the chest acquired. RADIATION DOSE: NA LIMITATIONS: None. FINDINGS: LUNGS AND PLEURA: Interval development of patchy peripheral opacities in the right mid and lower lung and left lung base. Probable small left effusion. No pneumothorax. MEDIASTINUM AND HILAR STRUCTURES: No masses. Contour normal. HEART AND VASCULAR STRUCTURES: Mild cardiomegaly is stable. No pulmonary vascular congestion. BONES: No acute findings. HARDWARE: None in the chest. OTHER: No other significant finding. IMPRESSION: Patchy multifocal opacities likely represent multifocal pneumonia. TECHNICAL DOCUMENTATION: JOB ID: [id number] 2010 [employer]- All Rights Reserved Reading location - IP/workstation name: [email or web address]
[2020-03-17 18:00] LABS: APPEARANCE,URINE SLIGHTLY-CLOUDY; BILIRUBIN,URINE NEGATIVE (NEGATIVE); COLOR,URINE YELLOW; GLUCOSE, URINE NEGATIVE (NEGATIVE); KETONES,URINE TRACE mg/dL (NEGATIVE); LEUKOCYTE ESTERASE,URINE NEGATIVE (NEGATIVE); NITRITE,URINE NEGATIVE (NEGATIVE); PROTEIN,URINE 30 mg/dL (NEGATIVE); URINE SPECIFIC GRAVITY 1.016; UROBILINOGEN,URINE NEGATIVE mg/dL (<2.0)
[2020-03-17] MEDS ORDERED: DOXYCYCLINE HYCLATE 100 MG TABLET PO ONE (20:18)
--- NOTE | 2020-03-17 20:47 | ER Document Report ---
ED Respiratory Problem - General Chief Complaint: Shortness Of Breath Stated Complaint: WEAKNESS Time Seen by Provider: 03/17/20 19:56 Primary Care Provider: EPI CARRASQUILLO DO [Primary Care Provider] - Follow up as needed Mode of Arrival: Medic Information source: Patient TRAVEL OUTSIDE OF THE [place] IN LAST 30 DAYS: No - HPI Patient complains to provider of: Cough, Short of breath Notes: Patient arrives via EMS with complaints of cough and shortness of breath. The patient states that is been feeling like this for the last few days. He denies any known fever. He denies any chest pain or shortness of breath currently. Patient had a rapid positive Covid screen by the EMS that brought him in. He denies any abdominal pain. He denies any nausea, vomiting, diarrhea. No chest pain or shortness of breath. No rash. He denies any new leg swelling. Nothing seems to make his symptoms better or worse. He denies any other complaints at this time. - Related Data Allergies/Adverse Reactions: No Known Drug Allergies Allergy (Verified 06/24/13 07:12) Home Medications: atorvastatin, aspirin, lasix, glipizide, potassium, propanolol Past Medical History - Social History Smoking Status: Unknown if Ever Smoked Frequency of alcohol use: None Drug Abuse: None Family History: Reviewed & Not Pertinent, Malignancy, Other - Myasthenia gravis - Past Medical History Cardiac Medical History: Reports: Hx Hypercholesterolemia, Hx Hypertension Denies: Hx Coronary Artery Disease, Hx Heart Attack Pulmonary Medical History: Reports: Hx Pneumonia - A TEENAGER Denies: Hx Asthma, Hx Bronchitis, Hx COPD Neurological Medical History: Denies: Hx Cerebrovascular Accident, Hx Seizures Endocrine Medical History: Reports: Hx Diabetes Mellitus Type 2 Renal/ Medical History: Reports: Hx Kidney Stones GI Medical History: Reports: Hx Gastroesophageal Reflux Disease Musculoskeletal Medical History: Denies Hx Arthritis Psychiatric Medical History: Denies: Hx Depression Past Surgical History: Reports: Hx Appendectomy, Hx Cardiac Catheterization, Hx Tonsillectomy - Immunizations Hx Diphtheria, Pertussis, Tetanus Vaccination: Yes - 5-10 yrs ago Hx Pneumococcal Vaccination: 03/11/07 Review of Systems - Review of Systems -: Yes All other systems reviewed and negative Physical Exam - Vital signs Vitals: Temp Resp BP Pulse Ox 98.8 F 21 H 101/66 93 03/17/20 16:24 03/17/20 16:24 03/17/20 16:24 03/17/20 16:24 - Notes Notes: GENERAL: alert, cooperative, nontoxic, no distress. HEAD: normocephalic, atraumatic EYES: conjunctiva pink without discharge, no external redness or swelling. EARS: no external swelling, no external redness, no mastoid redness, swelling, tenderness. Ear canals are clear without swelling or drainage. TMs pearly colunga, no redness, no bulging, normal landmarks, no perforation. NOSE: atraumatic, no external swelling. clear rhinorrhea noted. MOUTH/THROAT: mucous membranes moist and pink, posterior pharynx without erythema, swelling, exudate. No trismus or drooling. Voice is normal, no stridor. NECK: soft, supple, full range of motion, no meningismus. CHEST: no distress, lungs slightly coarse throughout. Good air movement. No crackles. No wheezing. CARDIAC: regular rate and rhythm EXTREMITIES: full range of motion of all extremities. No redness, no swelling. NEURO: alert and oriented A&O3, no focal deficits, full range of motion of all extremities. PYSCH: appropriate mood, affect. Patient is cooperative. SKIN: pink, warm, dry, no rash. Course - Re-evaluation Re-evalutation: 03/17/20 20:46 Patient is nontoxic-appearing with stable vitals. He arrives via EMS with complaints of some shortness of breath and cough. His rapid Covid by EMS was positive. Have gone over the results with the patient. Nursing staff spoke with the patient's son who he lives with. Patient's vitals are stable. He satting anywhere from 91 to 96% on room air. White count is normal at 6, hemoglobin slightly low at 13. Sodium is 129 which is fairly stable for this patient. Potassium slightly elevated at 5.4. Creatinine is 1.34 which is also stable for this patient. BUN elevated at 30 which is stable. Patient did not want treatment for his hyperkalemia. Urinalysis shows 30 of protein, trace ketones. Chest x-ray shows patchy multifocal opacities likely representing multifocal pneumonia. It is likely that this is secondary to Covid pneumonia. Based on the patient's age, complaints of shortness of breath, multifocal pneumonia on x-ray, I offered admission to the hospital for further evaluation and management. The patient declined. The patient is of sound mind to make this decision. Nursing staff spoke with his son who is also in agreement with this plan. Patient will be signing out AGAINST MEDICAL ADVICE. Patient will be given a dose of doxycycline here in the emergency department will be discharged home with doxycycline for pneumonia. He will be instructed to quarantine for 10 days. Follow-up sooner if he develops worsening shortness of breath, severe chest pain, persistent vomiting, or any further concerns. The patient is always welcome back to the emergency department for reevaluation. The patient and/or family have decided to leave against medical advice. The patient and/or family are of sound mind to make this decision. The risks of leaving were discussed with the patient and/or family who verbalized an understanding of these risks. The possibility of worsening condition, chance of increased morbidity, disability, mortality, and even were discussed. The patient and/or family still choose to leave against medical advice. Strict return instructions were given. They were also instructed to return to the emergency department for any concerns not outlined in the return instructions. - Vital Signs Vital signs: Temp Pulse Resp BP Pulse Ox 98.8 F 20 121/68 91 L 03/17/20 16:24 03/17/20 20:01 03/17/20 20:01 03/17/20 20:01 - Laboratory Results Result Diagrams: 03/17/20 15:50 03/17/20 15:50 Laboratory Results Interpreted: 03/17/20 03/17/20 03/17/20 15:50 15:50 17:43 RBC 4.13 L Hgb 13.1 L RDW 14.8 H Sodium 129.3 L Potassium 5.4 H BUN 30 H Creatinine 1.34 H Est GFR (MDRD) Non-Af 51 L Glucose 138 H Total Protein 6.2 L Albumin 3.3 L Urine Protein 30 H Urine Ketones TRACE H Urine Ascorbic Acid 20 H Critical Laboratory Results Reviewed: No Critical Results - Radiology Results Radiology Results Interpreted: 03/17/20 20:46 Multifocal bilateral pneumonia Critical Radiology Results Reviewed: Yes Attending or Supervising Physician who Reviewed Radiology: DAGO LINTON Discharge - Discharge Clinical Impression: Multifocal pneumonia, COVID-19 Condition: Fair Disposition: AGAINST MEDICAL ADVICE Instructions: COVID-19 Guidance for Persons Under Investigation, Pneumonia ([facility]) Additional Instructions: Take medication as prescribed. Follow-up with your doctor at the next available appointment. Please return the emergency department immediately if you have any worsening symptoms, significant shortness of breath, severe chest pain, persistent vomiting, or any further concerns. Referrals: EPI CARRASQUILLO DO [Primary Care Provider] - Follow up as needed
[2020-03-17 21:35] VITALS: BP 121/75
--- NOTE | 2020-03-17 23:54 | EKG REPORT ---
SEVERITY:- ABNORMAL ECG - SINUS RHYTHM LEFT ANTERIOR FASCICULAR BLOCK : Confirmed by: Shannan Waddell 17-Mar-2020 23:53:56
== END 2020-03-17 21:35 | disposition left against medical advice (07) ==
LOC: ER 15:29
DX: U07.1 COVID-19 (principal); J18.9 Pneumonia, unspecified organism; E87.5 Hyperkalemia; I10 Essential (primary) hypertension; E78.00 Pure hypercholesterolemia, unspecified; E11.9 Type 2 diabetes mellitus without complications; Z79.899 Other long term (current) drug therapy; Z79.82 Long term (current) use of aspirin; Z79.84 Long term (current) use of oral hypoglycemic drugs; Z53.20 Procedure and treatment not carried out because of patient's decision for unspecified reasons
CPT/HCPCS: 93005; 99285; 36415; 85025; 80053; 81001; 71045; 93010; A9270

== ENCOUNTER 2020-03-21 15:21 | Inpatient (IN) | payer MEDICARE ==
--- NOTE | 2020-03-21 16:23 | RADIOLOGY REPORT (SQ) ---
EXAM DESCRIPTION: CHEST SINGLE VIEW IMAGES COMPLETED DATE/TIME: 03/21/2020 4:13 pm REASON FOR STUDY: sob COMPARISON: 03/17/2020 EXAM PARAMETERS: NUMBER OF VIEWS: One view. TECHNIQUE: Single frontal radiographic view of the chest acquired. RADIATION DOSE: NA LIMITATIONS: None. FINDINGS: LUNGS AND PLEURA: Patchy bilateral infiltrates that appear to be slightly more prominent t weber on the earlier study. MEDIASTINUM AND HILAR STRUCTURES: No masses. Contour normal. HEART AND VASCULAR STRUCTURES: Heart normal in size. Normal vasculature. BONES: No acute findings. HARDWARE: None in the chest. OTHER: No other significant finding. IMPRESSION: Patchy bilateral infiltrates suggesting multifocal pneumonia. TECHNICAL DOCUMENTATION: JOB ID: [id number] 2010 [employer] All Rights Reserved Reading location - IP/workstation name: [email or web address]
[2020-03-21 16:52] LABS: ABSOLUTE MONOCYTES (AUTO) 0.3 10^3/uL (0.1-1.4); ABSOLUTE NEUT (AUTO) 6.3 10^3/uL (1.7-8.2); BASOPHILS % (AUTO) 0.2 % (0-2); HEMATOCRIT 38.1 % (37.9-51.0); HEMOGLOBIN 12.9 g/dL (13.5-17.0); LYMPHOCYTES % (AUTO) 12.6 % (13-45); MEAN CORPUSCULAR HEMOGLOBIN 31.7 pg (27.0-33.4); MEAN CORPUSCULAR HGB CONC 33.9 g/dL (32.0-36.0); MEAN CORPUSCULAR VOLUME 94 fl (80-97); MONOCYTES % (AUTO) 4.5 % (3-13); PLATELET COUNT 176 10^3/uL (150-450); RED BLOOD COUNT 4.08 10^6/uL (4.35-5.55); RED CELL DISTRIBUTION WIDTH 14.4 % (11.5-14.0); SEGMENTED NEUTROPHILS % (AUTO) 82.7 % (42-78); TOTAL CELLS COUNTED % (AUTO) 100 %; WHITE BLOOD COUNT 7.6 10^3/uL (4.0-10.5)
[2020-03-21 16:56] LABS: APPEARANCE,URINE SLIGHTLY-CLOUDY; BILIRUBIN,URINE NEGATIVE (NEGATIVE); COLOR,URINE YELLOW; GLUCOSE, URINE NEGATIVE (NEGATIVE); KETONES,URINE NEGATIVE (NEGATIVE); LEUKOCYTE ESTERASE,URINE NEGATIVE (NEGATIVE); NITRITE,URINE NEGATIVE (NEGATIVE); PROTEIN,URINE 30 mg/dL (NEGATIVE); URINE SPECIFIC GRAVITY 1.014; UROBILINOGEN,URINE NEGATIVE mg/dL (<2.0)
[2020-03-21 16:58] LABS: VENOUS BLOOD PH 7.38 (7.30-7.42)
[2020-03-21 17:08] LABS: ALBUMIN 3.2 g/dL (3.5-5.0); ALKALINE PHOSPHATASE 80 U/L (38-126); ANION GAP 8 (5-19); ASPARTATE AMINO TRANSFERASE 62 U/L (17-59); BILIRUBIN,DIRECT 0.6 mg/dL (0.0-0.4); BILIRUBIN,TOTAL 0.6 mg/dL (0.2-1.3); BLOOD UREA NITROGEN 33 mg/dL (7-20); CARBON DIOXIDE 23 mmol/L (22-30); CHLORIDE 103 mmol/L (98-107); GLUCOSE 163 mg/dL (75-110); POTASSIUM 5.3 mmol/L (3.6-5.0); TOTAL PROTEIN 5.9 g/dL (6.3-8.2)
--- NOTE | 2020-03-21 18:16 | EKG REPORT ---
SEVERITY:- ABNORMAL ECG - SINUS RHYTHM SHORT WI INTERVAL, ACCELERATED AV CONDUCTION LEFT ANTERIOR FASCICULAR BLOCK : Confirmed by: Ariane Kerr MD 21-Mar-2020 18:16:03
[2020-03-21] MEDS ORDERED: DEXAMETHASONE SOD PHOS INJ 10 MG/1 ML VIAL IV ONE (19:11)
--- NOTE | 2020-03-21 19:15 | ER Document Report ---
ED Respiratory Problem - General Chief Complaint: Shortness Of Breath Stated Complaint: SHORTNESS OF BREATH Time Seen by Provider: 03/21/20 16:48 TRAVEL OUTSIDE OF THE [place] IN LAST 30 DAYS: No - HPI Notes: Patient is an 84-year-old male who presents with shortness of breath. He was in the ER on March 17. He was diagnosed with Covid pneumonia. Patient was offered admission at that time but declined and left AMA. He was discharged with doxycycline. He returns today for worsening shortness of breath. Patient states he has a slight cough. He is overall a very poor historian. He denies any chest pain. Patient was placed on oxygen by nursing staff for a low O2 saturation. - Related Data Allergies/Adverse Reactions: No Known Drug Allergies Allergy (Verified 06/24/13 07:12) Past Medical History - General Information source: Patient - Social History Smoking Status: Former Smoker Family History: Reviewed & Not Pertinent, Malignancy, Other - Myasthenia gravis Patient has homicidal ideation: No - Past Medical History Cardiac Medical History: Reports: Hx Hypercholesterolemia, Hx Hypertension Denies: Hx Coronary Artery Disease, Hx Heart Attack Pulmonary Medical History: Reports: Hx Pneumonia - A TEENAGER Denies: Hx Asthma, Hx Bronchitis, Hx COPD Neurological Medical History: Denies: Hx Cerebrovascular Accident, Hx Seizures Endocrine Medical History: Reports: Hx Diabetes Mellitus Type 2 Renal/ Medical History: Reports: Hx Kidney Stones GI Medical History: Reports: Hx Gastroesophageal Reflux Disease Musculoskeletal Medical History: Denies Hx Arthritis Psychiatric Medical History: Denies: Hx Depression Past Surgical History: Reports: Hx Appendectomy, Hx Cardiac Catheterization, Hx Tonsillectomy - Immunizations Hx Diphtheria, Pertussis, Tetanus Vaccination: Yes - 5-10 yrs ago Hx Pneumococcal Vaccination: 03/11/07 Review of Systems - Review of Systems Notes: CONSTITUTIONAL: No fever, fatigue or weight loss. SKIN: No rash. HENT: No congestion, ear pain, or sore throat. CARDIOVASCULAR: No chest pain RESPIRATORY: Positive for cough and shortness of breath. GASTROINTESTINAL: No abdominal pain, nausea, vomiting, bloody stools or diarrhea. GENITOURINARY: No dysuria. MUSCULOSKELETAL: No joint pain or swelling. NEUROLOGIC: No seizures. No headache, focal weakness or sensory changes. HEMATOLOGIC: No unusual bruising or bleeding. PSYCHIATRIC: No depression or anxiety. Physical Exam - Vital signs Vitals: Temp BP 98.0 F 134/99 H 03/21/20 15:37 03/21/20 15:37 - General General appearance: Appears well In distress: None Notes: VITAL SIGNS: Within normal limits. On 3 L nasal cannula. GENERAL: No acute distress, non-toxic appearance. Dry mucus membranes. HEAD: Normal with no signs of head trauma. EYES: Conjunctiva normal, no discharge. EARS: Hearing grossly intact. NOSE: Normal. NECK: Normal range of motion, no tenderness, supple, no lymphadenopathy, No adenopathy, no JVD. CHEST: Clear breath sounds bilaterally. No wheezes, rales, or rhonchi. CARDIAC: Regular rate and rhythm. VASCULAR: No Edema. ABDOMEN: Normal and soft with no tenderness, no masses or pulsatile masses. MUSCULOSKELETAL: Good range of motion of all major joints. Extremities without clubbing, cyanosis or edema. NEUROLOGICAL: Alert. No focal sensory or strength deficits. Speech normal. Follows commands appropriately. PSYCHIATRIC: Normal Affect, judgement and mood. SKIN: Normal appearance with no rashes or lesions. Course - Re-evaluation Re-evalutation: 03/21/20 19:15 Patient was 88% on room air for nursing staff. He was placed on 3 L nasal cannula. I discussed admission with the patient nad he is in agreement. It lo oks like he was prescribed doxycycline. I will add dexamethasone today. Patient will need to be admitted for further care. 03/21/20 21:07 - Vital Signs Vital signs: Temp Pulse Resp BP Pulse Ox 98.2 F 19 106/79 97 03/21/20 17:01 03/21/20 19:01 03/21/20 19:01 03/21/20 19:01 - Laboratory Results Result Diagrams: 03/21/20 16:25 03/21/20 16:25 Laboratory Results Interpreted: 03/21/20 03/21/20 03/21/20 16:25 16:25 16:25 RBC 4.08 L Hgb 12.9 L RDW 14.4 H Lymph % (Auto) 12.6 L Seg Neutrophils % 82.7 H Sodium 134.2 L Potassium 5.3 H BUN 33 H Creatinine 1.40 H Est GFR ( Amer) 59 L Est GFR (MDRD) Non-Af 48 L Glucose 163 H Direct Bilirubin 0.6 H AST 62 H Total Protein 5.9 L Albumin 3.2 L Urine Protein 30 H Urine Blood SMALL H Critical Laboratory Results Reviewed: No Critical Results - Radiology Results Critical Radiology Results Reviewed: No Critical Results - EKG Interpretation by Me EKG shows normal: Sinus rhythm Rate: Normal Rhythm: NSR When compared to previous EKG there are: No significant change Discharge - Discharge Clinical Impression: Pneumonia due to COVID-19 virus, Acute respiratory failure due to COVID-19 Condition: Stable Disposition: ADMITTED INPATIENT Admitting Provider: Cabrera (Hospitalist) Unit Admitted: Telemetry
[2020-03-21] MEDS ORDERED: ONDANSETRON HCL INJ/PF 4 MG/2 ML SDV IV PRN (22:11)
[2020-03-21] MEDS ORDERED: ACETAMINOPHEN 325 MG TABLET PO PRN (22:11)
[2020-03-21] MEDS ORDERED: ONDANSETRON 4 MG TAB.RAPDIS PO PRN (22:11)
--- NOTE | 2020-03-21 22:25 | PDOC H&P ---
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 Patient was initially seen in ED on 03/17 and admission was recommended however the patient refused and left AGAINST MEDICAL ADVICE. Lewis garcia comes back today and has decided he agrees with admission and would like to be admitted today. Chest x-ray shows patchy bilateral infiltrates suggesting multifocal pneumonia. Creatinine mildly elevated likely prerenal due to poor p.o. intake. Rapid Covid test positive today as well. Patient admitted for Covid pneumonia for current literature-based standard of care. Past Medical History Cardiac Medical History: Reports: Hyperlipidema, Hypertension Denies: Coronary Artery Disease, Myocardial Infarction Pulmonary Medical History: Reports: Pneumonia - A TEENAGER Denies: Asthma, Bronchitis, Chronic Obstructive Pulmonary Disease (COPD) Neurological Medical History: Denies: Seizures Endocrine Medical History: Reports: Diabetes Mellitus Type 2 GI Medical History: Reports: Gastroesophageal Reflux Disease Musculoskeltal Medical History: Denies: Arthritis Psychiatric Medical History: Denies: Depression Hematology: Denies: Anemia Past Surgical History Past Surgical History: Reports: Appendectomy, Cardiac Catheterization, Tonsillectomy Social History Information Source: Patient, Emergency Med Personnel Smoking Status: Former Smoker Frequency of Alcohol Use: Occasional - [place] Hx Recreational Drug Use: No Drugs: None Hx Prescription Drug Abuse: No - Advance Directive Resuscitation Status: Full Code Surrogate healthcare decision maker:: Admitting diagnosis: COVID-19 pneumonia All aspects of code status discussed with patient/POA including cardioversion, chest compressions, and intubation and the patient/POA indicated they wish to be full code MPOA is designated as: SonMinh Time spent: Greater than 16 minutes Family History Family History: Reviewed & Not Pertinent, Malignancy, Other - Myasthenia gravis Parental Family History Reviewed: Yes Children Family History Reviewed: Yes Sibling(s) Family History Reviewed.: Yes Medication/Allergy Home Medications: Aspirin [Aspirin EC] 81 mg PO DAILY 06/24/13 Atorvastatin Calcium 40 mg PO DAILY 06/24/13 Doxycycline Hyclate [Vibramycin 100 mg Tablet] 100 mg PO BID #20 tablet 03/17/20 Furosemide [Lasix 20 mg Tablet] 10 mg PO QAM 03/21/20 Glipizide [Glucotrol] 2.5 mg PO DAILY 03/21/20 Insulin Detemir [Levemir Insulin 100 units/mL Insulin Pen] 0 unit SUBCUT ASDIR PRN 03/21/20 Midodrine HCl 5 mg PO TID 03/21/20 Potassium Chloride 20 meq PO DAILY 03/21/20 Propranolol HCl [Propranolol HCl ER] 60 mg PO DAILY 03/21/20 Allergies/Adverse Reactions: No Known Drug Allergies Allergy (Verified 06/24/13 07:12) Review of Systems All systems: reviewed and no additional remarkable complaints except as stated - Per HPI otherwise negative Physical Exam Vital Signs: Temp Pulse Resp BP Pulse Ox 98.4 F 19 129/67 H 98 03/21/20 22:01 03/21/20 22:01 03/21/20 22:01 03/21/20 22:01 Intake & Output 03/20/20 03/21/20 03/22/20 06:59 06:59 06:59 Weight 78 kg Exam: General appearance: PRESENT: no acute distress, well-developed, well-nourished, acutely ill and frail-appearing elderly white male Head exam: PRESENT: atraumatic, normocephalic Eye exam: PRESENT: conjunctiva pink. ABSENT: scleral icterus Mouth exam: PRESENT: moist Respiratory exam: PRESENT: Mild bilateral crackles ABSENT: rales, wheezes Cardiovascular exam: PRESENT: RRR. ABSENT: diastolic murmur, rubs, systolic murmur GI/Abdominal exam: PRESENT: normal bowel sounds, soft. ABSENT: distended, guarding, mass, organolmegaly, rebound, tenderness Neurological exam: PRESENT: alert, awake, oriented to person, oriented to place, oriented to time, oriented to situation Psychiatric exam: PRESENT: appropriate affect, normal mood Skin exam: PRESENT: dry, intact, warm Results Laboratory Results: 03/21/20 16:25 03/21/20 16:25 03/21/20 03/21/20 03/21/20 16:25 16:25 16:25 WBC 7.6 RBC 4.08 L Hgb 12.9 L Hct 38.1 MCV 94 MCH 31.7 MCHC 33.9 RDW 14.4 H Plt Count 176 Seg Neutrophils % 82.7 H VBG pH VBG pCO2 VBG HCO3 VBG Base Excess Sodium 134.2 L Potassium 5.3 H Chloride 103 Carbon Dioxide 23 Anion Gap 8 BUN 33 H Creatinine 1.40 H Est GFR ( Amer) 59 L Glucose 163 H Lactic Acid Calcium 9.0 Total Bilirubin 0.6 AST 62 H Alkaline Phosphatase 80 Total Protein 5.9 L Albumin 3.2 L Urine Color YELLOW Urine Appearance SLIGHTLY-CLOUDY Urine pH 5.0 Ur Specific [place] 1.014 Urine Protein 30 H Urine Glucose (UA) NEGATIVE Urine Ketones NEGATIVE Urine Blood SMALL H Urine Nitrite NEGATIVE Ur Leukocyte Esterase NEGATIVE Urine WBC (Auto) 2 Urine RBC (Auto) 61 03/21/20 03/21/20 16:25 16:25 WBC RBC Hgb Hct MCV MCH MCHC RDW Plt Count Seg Neutrophils % VBG pH 7.38 VBG pCO2 40.0 VBG HCO3 23.0 VBG Base Excess -2.0 Sodium Potassium Chloride Carbon Dioxide Anion Gap BUN Creatinine Est GFR ( Amer) Glucose Lactic Acid 1.8 Calcium Total Bilirubin AST Alkaline Phosphatase Total Protein Albumin Urine Color Urine Appearance Urine pH Ur Specific Jennings Urine Protein Urine Glucose (UA) Urine Ketones Urine Blood Urine Nitrite Ur Leukocyte Esterase Urine WBC (Auto) Urine RBC (Auto) 03/21/20 16:25 Troponin I 0.017 Impressions: Chest X-Ray 03/21/20 15:43 IMPRESSION: Patchy bilateral infiltrates suggesting multifocal pneumonia. Assessment and Plan - Diagnosis (1) Pneumonia due to COVID-19 virus Is this a current diagnosis for this admission?: Yes Plan: -Symptoms/history consistent with covid-19 infection -Covid-19 test: 03/17 -CXR showed: Patchy bilateral infiltrates -CTPA not done -standard of care vitamin supplements: zinc, ascorbic acid, vitamin d, melatonin -maintain magnesium of 2 mg/dL or higher -Current literaturedoes not show clear benefit from the use of remdesivir, plaquenil, and convalescent plasma -supplemental oxygen and BiPAP/CPAP as needed -prn combivent/nebs as able -do not hold anticoagulation unless actively bleeding or platelet count <50 -close monitoring for acute respiratory decline requiring ICU transfer and intubation -consider ivermectin/doxycycline combination therapy (2) Acute hypoxemic respiratory failure Is this a current diagnosis for this admission?: Yes Plan: Due to COVID-19 pneumonia Suspect possible underlying COPD as well given extensive smoking history Nebulizer treatments Supplemental oxygen to maintain saturation of at least 90% (3) T2DM (type 2 diabetes mellitus) Qualifiers: Diabetes mellitus shelter insulin use: with shelter use Diabetes mellitus complication status: with hyperglycemia Qualified Code(s): E11.65 - Type 2 diabetes mellitus with hyperglycemia; Z79.4 - detention (current) use of insulin Is this a current diagnosis for this admission?: Yes Plan: T2DM -accucheks, sliding scale insulin -long acting insulin indicated for HgA1C of 10 or greater -diet counseling -outpt FU with PCP Patient takes Levemir at home but has no idea what the dose is (4) HLD (hyperlipidemia) Is this a current diagnosis for this admission?: Yes Plan: Statin (5) Former smoker Is this a current diagnosis for this admission?: Yes Plan: Suspect underlying COPD, per patient never diagnosed with this Extensive smoking history, quit years ago (6) GERD (gastroesophageal reflux disease) Qualifiers: Esophagitis presence: esophagitis presence not specified Qualified Code(s): K21.9 - Gastro-esophageal reflux disease without esophagitis Is this a current diagnosis for this admission?: Yes Plan: Currently without symptoms, can add PPI if needed (7) HTN (hypertension), benign Is this a current diagnosis for this admission?: Yes Plan: Home medications - Time Time Spent with patient: 35 or more minutes Medications reviewed and adjusted accordingly: Yes Anticipated Discharge Disposition: Home, Self Care Anticipated Discharge Timeframe: within 72 hours - Inpatient Certification Based on my medical assessment, after consideration of the patient's comorbidities, presenting symptoms, or acuity I expect that the services needed warrant INPATIENT care.: Yes I certify that my determination is in accordance with my understanding of Medicare's requirements for reasonable and necessary INPATIENT services [42 CFR 412.3e].: Yes Medical Necessity: Significant Comorbidiites Make Outpatient Treatment Too Risky, Need Close Monitoring Due to Risk of Patient Decompensation, Risk of Complication if Not Cared For in Hospital, Risk of Diagnosis Which Will Require Inpatient Eval/Care/Monitoring
[2020-03-21] MEDS ORDERED: METHYLPREDNISOLONE INJ 40 MG/1 ML SDV IV SCH (22:30)
[2020-03-21] MEDS ORDERED: ATORVASTATIN CALCIUM 20 MG TABLET PO ONE (22:45)
[2020-03-21] MEDS ORDERED: DOXYCYCLINE HYCLATE INJ 100 MG VIAL IV PRN (23:00)
[2020-03-21] MEDS ORDERED: DOXYCYCLINE HYCLATE 100 MG in DEXTROSE 5%-WATER 250 ML IV ONE (23:00)
[2020-03-21] MEDS ORDERED: IVERMECTIN 3 MG TABLET PO ONE (23:00)
[2020-03-22] MEDS ORDERED: IVERMECTIN 3 MG TABLET ONE (02:15)
[2020-03-22] MEDS ORDERED: DOXYCYCLINE HYCLATE INJ 100 MG VIAL ONE (02:15)
[2020-03-22] MEDS: RINGERS SOLUTION,LACTATED 1,000 ML IV PRN ×2 (05:53→20:10)
[2020-03-22] MEDS: INSULIN LISPRO 100 UNIT/ML 3 ML VIAL SUBCUT SCH ×4 (08:10→22:59)
[2020-03-22 08:13] LABS: ABSOLUTE LYMPHOCYTES (AUTO) 0.8 10^3/uL (0.5-4.7); ABSOLUTE MONOCYTES (AUTO) 0.1 10^3/uL (0.1-1.4); ABSOLUTE NEUT (AUTO) 3.1 10^3/uL (1.7-8.2); HEMATOCRIT 34.4 % (37.9-51.0); HEMOGLOBIN 11.8 g/dL (13.5-17.0); LYMPHOCYTES % (AUTO) 20.1 % (13-45); MEAN CORPUSCULAR HEMOGLOBIN 32.5 pg (27.0-33.4); MEAN CORPUSCULAR HGB CONC 34.4 g/dL (32.0-36.0); MEAN CORPUSCULAR VOLUME 95 fl (80-97); MONOCYTES % (AUTO) 2.7 % (3-13); PLATELET COUNT 139 10^3/uL (150-450); RED BLOOD COUNT 3.64 10^6/uL (4.35-5.55); RED CELL DISTRIBUTION WIDTH 14.4 % (11.5-14.0); SEGMENTED NEUTROPHILS % (AUTO) 77.2 % (42-78); TOTAL CELLS COUNTED % (AUTO) 100 %; WHITE BLOOD COUNT 4.1 10^3/uL (4.0-10.5)
[2020-03-22 08:46] LABS: ANION GAP 9 (5-19); BLOOD UREA NITROGEN 36 mg/dL (7-20); C-REACTIVE PROTEIN 74.9 mg/L (<10.0); CALCIUM 8.6 mg/dL (8.4-10.2); CARBON DIOXIDE 20 mmol/L (22-30); CHLORIDE 105 mmol/L (98-107); GLUCOSE 249 mg/dL (75-110); PHOSPHORUS 5.1 mg/dL (2.5-4.5); POTASSIUM 5.3 mmol/L (3.6-5.0)
[2020-03-22] MEDS ORDERED: ENOXAPARIN SODIUM INJ 40 MG/0.4 ML DISP.SYRIN SUBCUT SCH (10:00)
[2020-03-22] MEDS ORDERED: PROPRANOLOL HCL 60 MG PO SCH (10:00)
[2020-03-22] MEDS: CHOLECALCIFEROL (D3) 1,000 UNIT (25 MCG) TABLET PO SCH (10:37)
[2020-03-22] MEDS: DOCUSATE SODIUM 100 MG CAPSULE PO SCH (10:37)
[2020-03-22] MEDS: VITAMIN B COMPLEX TABLET PO SCH (10:37)
[2020-03-22] MEDS: ASCORBIC ACID 500 MG TABLET PO SCH ×2 (10:39→17:20)
[2020-03-22] MEDS: GLIPIZIDE 5 MG TABLET PO SCH (10:39)
[2020-03-22] MEDS: ZINC SULFATE 220 MG CAPSULE PO SCH (10:39)
[2020-03-22] MEDS: METHYLPREDNISOLONE INJ 40 MG/1 ML SDV IV SCH ×2 (10:39→23:00)
[2020-03-22] MEDS: MIDODRINE HCL 5 MG TABLET PO SCH ×3 (10:39→17:20)
--- NOTE | 2020-03-22 19:47 | PDOC PROGRESS REPORT ---
Subjective Date:: 03/22/20 Subjective:: Patient was seen on morning rounds. Found resting in bed, comfortably, on suppl emental oxygen by nasal cannula. He is alert and oriented to person, place, time, situation; however, he becomes easily confused and answers questions incoherently. He does follow directions. He is otherwise conversational and socially appropriate. It is difficult to elicit his recent HPI. He has no complaints at present and tells me that we are "overreacting," but is unable to describe further what it is we are overreacting to her what it is that he is bothered by. When asked why he came to the emergency department yesterday, patient states that he simply, " I do not feel well." He specifically denies fever, chills, chest pain, palpitations, dyspnea, orthopnea, abdominal pain, nausea, vomiting, diarrhea. Has no other questions or concerns at this time. No concerns per nursing. Reason For Visit: COVID-19 PNEUMONIA ACUTE HYPOXEMIC RESPIRATORY Physical Exam Vital Signs: Temp Pulse Resp BP Pulse Ox 97.5 F 84 19 130/87 H 97 03/22/20 15:30 03/22/20 15:30 03/22/20 15:30 03/22/20 15:30 03/22/20 15:30 Intake & Output 03/21/20 03/22/20 03/23/20 06:59 06:59 06:59 Intake Total 120 770 Output Total 400 350 Balance -280 420 Weight 73.4 kg General appearance: PRESENT: no acute distress, cooperative, well-developed, well-nourished, other - Acutely ill, frail-appearing Head exam: PRESENT: atraumatic, normocephalic Eye exam: PRESENT: conjunctiva pink, EOMI, PERRLA. ABSENT: scleral icterus Mouth exam: PRESENT: dry mucosa, tongue midline Respiratory exam: PRESENT: clear to auscultation nikolas, decreased breath sounds, symmetrical, unlabored, other - Supplemental oxygen by nasal cannula. ABSENT: rales, rhonchi, wheezes Cardiovascular exam: PRESENT: RRR. ABSENT: diastolic murmur, rubs, systolic m urmur Pulses: PRESENT: normal dorsalis pedis pul Vascular exam: PRESENT: normal capillary refill Extremities exam: PRESENT: full ROM. ABSENT: calf tenderness, clubbing, pedal edema Neurological exam: PRESENT: alert, awake, oriented to person, oriented to place, oriented to time, oriented to situation, CN II-XII grossly intact. ABSENT: motor sensory deficit Psychiatric exam: PRESENT: appropriate affect, normal mood. ABSENT: homicidal ideation, suicidal ideation Skin exam: PRESENT: dry, intact, warm. ABSENT: cyanosis, rash Results Laboratory Results: 03/22/20 07:36 03/22/20 07:36 03/21/20 03/22/20 03/22/20 16:25 07:36 07:36 WBC 4.1 RBC 3.64 L Hgb 11.8 L Hct 34.4 L MCV 95 MCH 32.5 MCHC 34.4 RDW 14.4 H Plt Count 139 L Seg Neutrophils % 77.2 Sodium 134.1 L Potassium 5.3 H Chloride 105 Carbon Dioxide 20 L Anion Gap 9 BUN 36 H Creatinine 1.24 Est GFR ( Amer) > 60 Glucose 249 H Calcium 8.6 Phosphorus 5.1 H Magnesium 1.8 Ferritin 453.00 C-Reactive Protein 74.9 H 03/21/20 16:25 Troponin I 0.017 Impressions: Chest X-Ray 03/21/20 15:43 IMPRESSION: Patchy bilateral infiltrates suggesting multifocal pneumonia. Assessment and Plan - Diagnosis (1) Pneumonia due to COVID-19 virus Is this a current diagnosis for this admission?: Yes Plan: -Symptoms/history consistent with covid-19 infection -Covid-19 positive: 03/17/20 -CXR showed: Patchy bilateral infiltrates - Supplemental oxygen and BiPAP/CPAP as needed currently maintaining oxygen saturations on supplemental oxygen by nasal cannula 2 L/min. - Standard of care vitamin supplements: zinc, ascorbic acid, vitamin d, melatonin - Prn combivent/nebs as able - Ivermectin x2 doses - Doxycycline x5 days - Solu-medrol - Full dose Lovenox; do not hold anticoagulation unless actively bleeding or platelet count <50 - Close monitoring for acute respiratory decline requiring ICU transfer and intubation - Current literaturedoes not show clear benefit from the use of remdesivir, plaquenil, and convalescent plasma (2) Acute hypoxemic respiratory failure Is this a current diagnosis for this admission?: Yes Plan: Due to COVID-19 pneumonia Suspect possible underlying COPD as well given extensive smoking history Nebulizer treatments Supplemental oxygen to maintain saturation of at least 90% (3) T2DM (type 2 diabetes mellitus) Qualifiers: Diabetes mellitus supervisor intermediates insulin use: with supervisor intermediates use Diabetes mellitus complication status: with hyperglycemia Qualified Code(s): E11.65 - Type 2 diabetes mellitus with hyperglycemia; Z79.4 - [employer] continuous churn (current) use of insulin Is this a current diagnosis for this admission?: Yes Plan: T2DM; A1c 7.8%. -accucheks, sliding scale insulin -Consistent carb diet -diet counseling -outpt FU with PCP (4) GERD (gastroesophageal reflux disease) Qualifiers: Esophagitis presence: esophagitis presence not specified Qualified Code(s): K21.9 - Gastro-esophageal reflux disease without esophagitis Is this a current diagnosis for this admission?: Yes Plan: Currently without symptoms, can add PPI if needed (5) HTN (hypertension), benign Is this a current diagnosis for this admission?: Yes Plan: Home medications (6) HLD (hyperlipidemia) Is this a current diagnosis for this admission?: Yes Plan: Statin (7) Former smoker Is this a current diagnosis for this admission?: Yes Plan: Suspect underlying COPD, per patient never diagnosed with this Extensive smoking history, quit years ago - Time Time Spent with patient: 25-34 minutes Medications reviewed and adjusted accordingly: Yes Anticipated Discharge Disposition: TBD Anticipated Discharge Timeframe: TBD
[2020-03-22] MEDS: DOXYCYCLINE HYCLATE 100 MG in DEXTROSE 5%-WATER 250 ML IV SCH (23:03)
[2020-03-22] MEDS: ATORVASTATIN CALCIUM 20 MG TABLET PO SCH (23:04)
[2020-03-22] MEDS: IVERMECTIN 3 MG TABLET PO SCH (23:04)
[2020-03-22] MEDS: MELATONIN 5 MG TABLET PO SCH (23:04)
[2020-03-22] MEDS: ENOXAPARIN SODIUM INJ 80 MG/0.8 ML DISP.SYRIN SUBCUT SCH (23:04)
[2020-03-23 07:34] LABS: HEMOGLOBIN 11.8 g/dL (13.5-17.0); MEAN CORPUSCULAR HEMOGLOBIN 31.5 pg (27.0-33.4); MEAN CORPUSCULAR HGB CONC 33.6 g/dL (32.0-36.0); MEAN CORPUSCULAR VOLUME 94 fl (80-97); PLATELET COUNT 164 10^3/uL (150-450); RED BLOOD COUNT 3.73 10^6/uL (4.35-5.55); RED CELL DISTRIBUTION WIDTH 14.5 % (11.5-14.0)
[2020-03-23 07:36] LABS: WHITE BLOOD COUNT 11.1 10^3/uL (4.0-10.5)
[2020-03-23 07:54] LABS: ANION GAP 5 (5-19); BLOOD UREA NITROGEN 35 mg/dL (7-20); C-REACTIVE PROTEIN 54.2 mg/L (<10.0); CALCIUM 8.6 mg/dL (8.4-10.2); CARBON DIOXIDE 25 mmol/L (22-30); CHLORIDE 103 mmol/L (98-107); GLUCOSE 235 mg/dL (75-110)
[2020-03-23] MEDS: INSULIN LISPRO 100 UNIT/ML 3 ML VIAL SUBCUT SCH ×4 (07:56→22:23)
[2020-03-23 08:02] LABS: POTASSIUM 4.3 mmol/L (3.6-5.0)
[2020-03-23] MEDS: METHYLPREDNISOLONE INJ 40 MG/1 ML SDV IV SCH ×2 (10:47→22:23)
[2020-03-23] MEDS: VITAMIN B COMPLEX TABLET PO SCH (10:48)
[2020-03-23] MEDS: ASCORBIC ACID 500 MG TABLET PO SCH ×2 (10:48→17:32)
[2020-03-23] MEDS: GLIPIZIDE 5 MG TABLET PO SCH (10:48)
[2020-03-23] MEDS: DOCUSATE SODIUM 100 MG CAPSULE PO SCH (10:48)
[2020-03-23] MEDS: ZINC SULFATE 220 MG CAPSULE PO SCH (10:50)
[2020-03-23] MEDS: ENOXAPARIN SODIUM INJ 80 MG/0.8 ML DISP.SYRIN SUBCUT SCH ×2 (10:51→22:16)
[2020-03-23] MEDS: CHOLECALCIFEROL (D3) 1,000 UNIT (25 MCG) TABLET PO SCH (10:51)
[2020-03-23] MEDS: MIDODRINE HCL 5 MG TABLET PO SCH ×3 (11:02→17:32)
[2020-03-23] MEDS: RINGERS SOLUTION,LACTATED 1,000 ML IV PRN (11:02)
[2020-03-23 14:30] LABS: APPEARANCE,URINE CLEAR; BILIRUBIN,URINE NEGATIVE (NEGATIVE); COLOR,URINE YELLOW; GLUCOSE, URINE >=500 mg/dL (NEGATIVE); KETONES,URINE NEGATIVE (NEGATIVE); LEUKOCYTE ESTERASE,URINE NEGATIVE (NEGATIVE); NITRITE,URINE NEGATIVE (NEGATIVE); PROTEIN,URINE NEGATIVE (NEGATIVE); URINE SPECIFIC GRAVITY 1.018; UROBILINOGEN,URINE NEGATIVE mg/dL (<2.0)
--- NOTE | 2020-03-23 18:41 | PDOC PROGRESS REPORT ---
Subjective Date:: 03/23/20 Subjective:: Patient was seen on afternoon rounds. Found resting in bed, comfortably, on supplemental oxygen by nasal cannula. He is alert and oriented to person, place, time, situation; however, he does continue to become easily confused. Overall, he does appear to be feeling better today and has an improvement in his appetite. He denies fever, chills, chest pain, palpitations, dyspnea, orthopnea, abdominal pain, nausea, vomiting, diarrhea. Has no other questions or concerns at this time. No concerns per nursing. Discussed w/ patient's son, Minh Santoyo, by phone. Patient began feeling ill (primarily fatigue/weakness) 03/15/20; he is currently day #9 of his illness. He was evaluated in the ED and recommended for admission but decided to go home. He returned within 48 hours due to increased generalized weakness and confusion. Per son, patient has not had complaints of fatigue, dyspnea,, n/v/d. We reviewed current clinical status, labs, and plan of care. Discussed continued observation and supportive care for 48-72 hours as day #9-11 has been, anecdotally, the period at which are patient present to the hospital. Due to patient's age/frailty, would recommend additional observation time prior to d/c home. Son is agreement and appreciative of plan. Goal is to d/c home with home health services. Reason For Visit: COVID-19 PNEUMONIA ACUTE HYPOXEMIC RESPIRATORY Physical Exam Vital Signs: Temp Pulse Resp BP Pulse Ox 97.3 F 98 16 130/68 H 93 03/23/20 16:00 03/23/20 16:00 03/23/20 16:00 03/23/20 16:00 03/23/20 16:00 Intake & Output 03/22/20 03/23/20 03/24/20 06:59 06:59 06:59 Intake Total 120 2382 1303 Output Total 400 750 750 Balance -280 1632 553 Weight 73.4 kg 73.4 kg General appearance: PRESENT: no acute distress, cooperative, well-developed, well-nourished, other - frail-appearing Head exam: PRESENT: atraumatic, normocephalic Eye exam: PRESENT: conjunctiva pink, EOMI, PERRLA. ABSENT: scleral icterus Mouth exam: PRESENT: dry mucosa, tongue midline Respiratory exam: PRESENT: clear to auscultation nikolas, decreased breath sounds, symmetrical, unlabored, other - supplemental oxygen via NC. ABSENT: rales, rhonchi, wheezes Cardiovascular exam: PRESENT: RRR. ABSENT: diastolic murmur, rubs, systolic murmur Vascular exam: PRESENT: normal capillary refill Extremities exam: PRESENT: full ROM. ABSENT: calf tenderness, clubbing, pedal edema Neurological exam: PRESENT: alert, awake, oriented to person, oriented to place, oriented to time, oriented to situation, CN II-XII grossly intact, other - slightly confused/forgetful; overall improved. ABSENT: motor sensory deficit Psychiatric exam: PRESENT: appropriate affect, normal mood. ABSENT: homicidal ideation, suicidal ideation Skin exam: PRESENT: dry, intact, warm. ABSENT: cyanosis, rash Results Laboratory Results: 03/23/20 06:48 03/23/20 06:48 03/23/20 03/23/20 03/23/20 06:48 06:48 13:37 WBC 11.1 H D RBC 3.73 L Hgb 11.8 L Hct 35.0 L MCV 94 MCH 31.5 MCHC 33.6 RDW 14.5 H Plt Count 164 Sodium 132.7 L Potassium 4.3 D Chloride 103 Carbon Dioxide 25 Anion Gap 5 BUN 35 H Creatinine 1.03 Est GFR ( Amer) > 60 Glucose 235 H Calcium 8.6 C-Reactive Protein 54.2 H Urine Color YELLOW Urine Appearance CLEAR Urine pH 5.0 Ur Specific [place] 1.018 Urine Protein NEGATIVE Urine Glucose (UA) >=500 H Urine Ketones NEGATIVE Urine Blood NEGATIVE Urine Nitrite NEGATIVE Ur Leukocyte Esterase NEGATIVE Urine WBC (Auto) 1 03/21/20 16:25 Troponin I 0.017 Impressions: Chest X-Ray 03/21/20 15:43 IMPRESSION: Patchy bilateral infiltrates suggesting multifocal pneumonia. Assessment and Plan - Diagnosis (1) Pneumonia due to COVID-19 virus Is this a current diagnosis for this admission?: Yes Plan: Symptoms/history consistent with covid-19 infection -Covid-19 positive: 03/17/20 -CXR showed: Patchy bilateral infiltrates Supplemental oxygen and BiPAP/CPAP as needed currently maintaining oxygen saturations on supplemental oxygen by nasal cannula 2 L/min. Standard of care vitamin supplements: zinc, ascorbic acid, vitamin d, melatonin As needed combivent/nebs as able Ivermectin x2 doses Doxycycline x5 days Solu-medrol Full dose Lovenox; do not hold anticoagulation unless actively bleeding or platelet count <50. Discussed w/ son; patient recently on Eliquis for DVT. Was discontinued last month; this may account for some of the patient's d. dimer elevation. Close monitoring for acute respiratory decline requiring ICU transfer and intubation - Current literature does not show clear benefit from the use of remdesivir, plaquenil, and convalescent plasma (2) Acute hypoxemic respiratory failure Is this a current diagnosis for this admission?: Yes Plan: Due to COVID-19 pneumonia Suspect possible underlying COPD as well given extensive smoking history Nebulizer treatments Supplemental oxygen to maintain saturation of at least 90% (3) T2DM (type 2 diabetes mellitus) Qualifiers: Diabetes mellitus charge accounts audit clerk insulin use: with charge accounts audit clerk use Diabetes mellitus complication status: with hyperglycemia Qualified Code(s): E11.65 - Type 2 diabetes mellitus with hyperglycemia; Z79.4 - squad sergeant (current) use of insulin Is this a current diagnosis for this admission?: Yes Plan: T2DM; A1c 7.8%. -accucheks, sliding scale insulin -Consistent carb diet -diet counseling -outpt FU with PCP (4) GERD (gastroesophageal reflux disease) Qualifiers: Esophagitis presence: esophagitis presence not specified Qualified Code(s): K21.9 - Gastro-esophageal reflux disease without esophagitis Is this a current diagnosis for this admission?: Yes Plan: Currently without symptoms, can add PPI if needed (5) HTN (hypertension), benign Is this a current diagnosis for this admission?: Yes Plan: Home medications (6) HLD (hyperlipidemia) Is this a current diagnosis for this admission?: Yes Plan: Statin (7) Former smoker Is this a current diagnosis for this admission?: Yes Plan: Suspect underlying COPD, per patient never diagnosed with this Extensive smoking history, quit years ago - Time Time Spent with patient: 35 or more minutes Medications reviewed and adjusted accordingly: Yes Anticipated Discharge Disposition: Home with Home Health Anticipated Discharge Timeframe: TBD
[2020-03-23] MEDS: MELATONIN 5 MG TABLET PO SCH (22:16)
[2020-03-23] MEDS: IVERMECTIN 3 MG TABLET PO SCH (22:16)
[2020-03-23] MEDS: ATORVASTATIN CALCIUM 20 MG TABLET PO SCH (22:16)
[2020-03-23] MEDS: DOXYCYCLINE HYCLATE 100 MG in DEXTROSE 5%-WATER 250 ML IV SCH (22:25)
[2020-03-24] MEDS: RINGERS SOLUTION,LACTATED 1,000 ML IV PRN ×2 (05:32→21:23)
[2020-03-24 07:25] LABS: HEMATOCRIT 33.5 % (37.9-51.0); HEMOGLOBIN 11.5 g/dL (13.5-17.0); MEAN CORPUSCULAR HEMOGLOBIN 31.9 pg (27.0-33.4); MEAN CORPUSCULAR HGB CONC 34.4 g/dL (32.0-36.0); MEAN CORPUSCULAR VOLUME 93 fl (80-97); PLATELET COUNT 159 10^3/uL (150-450); RED BLOOD COUNT 3.61 10^6/uL (4.35-5.55); RED CELL DISTRIBUTION WIDTH 14.4 % (11.5-14.0); WHITE BLOOD COUNT 9.8 10^3/uL (4.0-10.5)
[2020-03-24 07:53] LABS: BLOOD UREA NITROGEN 26 mg/dL (7-20); CALCIUM 8.6 mg/dL (8.4-10.2); CARBON DIOXIDE 28 mmol/L (22-30); GLUCOSE 244 mg/dL (75-110); POTASSIUM 4.2 mmol/L (3.6-5.0)
[2020-03-24 07:59] LABS: CHLORIDE 103 mmol/L (98-107)
[2020-03-24] MEDS ORDERED: INFLUENZA QUAD (6MOS+) 2020-21 VAC 0.5 ML SYR IM ONE (08:00)
[2020-03-24 08:02] LABS: ANION GAP 4 (5-19)
[2020-03-24] MEDS: INSULIN LISPRO 100 UNIT/ML 3 ML VIAL SUBCUT SCH ×4 (08:48→21:18)
[2020-03-24 09:09] LABS: ABSOLUTE LYMPHOCYTES# (MANUAL) 0.4 10^3/uL (0.5-4.7); ABSOLUTE MONOCYTES # (MANUAL) 0.4 10^3/uL (0.1-1.4); BAND NEUTROPHILS % (MANUAL) 4 % (3-5); BASOPHILS % (MANUAL) 0 % (0-2); EOSINOPHILS % (MANUAL) 1 % (0-6); LYMPHOCYTES % (MANUAL) 3 % (13-45); MONOCYTES % (MANUAL) 4 % (3-13); SEGMENTED NEUTROPHILS % (MAN) 87 % (42-78); TOTAL CELLS COUNTED 100
[2020-03-24 09:10] LABS: RBC MORPHOLOGY COMMENT NORMO-CYTIC/CHROMIC
[2020-03-24 09:11] LABS: PLATELET COMMENT ADEQUATE
[2020-03-24] MEDS: ENOXAPARIN SODIUM INJ 80 MG/0.8 ML DISP.SYRIN SUBCUT SCH ×2 (09:45→21:18)
[2020-03-24] MEDS: ZINC SULFATE 220 MG CAPSULE PO SCH (09:47)
[2020-03-24] MEDS: ASCORBIC ACID 500 MG TABLET PO SCH ×2 (09:47→17:59)
[2020-03-24] MEDS: MIDODRINE HCL 5 MG TABLET PO SCH ×3 (09:48→17:59)
[2020-03-24] MEDS: METHYLPREDNISOLONE INJ 40 MG/1 ML SDV IV SCH ×2 (09:48→21:19)
[2020-03-24] MEDS: CHOLECALCIFEROL (D3) 1,000 UNIT (25 MCG) TABLET PO SCH (09:48)
[2020-03-24] MEDS: GLIPIZIDE 5 MG TABLET PO SCH (09:48)
[2020-03-24] MEDS: DOCUSATE SODIUM 100 MG CAPSULE PO SCH (09:48)
[2020-03-24] MEDS: VITAMIN B COMPLEX TABLET PO SCH (09:49)
--- NOTE | 2020-03-24 19:22 | PDOC PROGRESS REPORT ---
Subjective Date:: 03/24/20 Subjective:: Patient was seen on morning rounds. Found resting in bed, comfortably, on supplemental oxygen by nasal cannula at 2lpm. He is A&Ox4; slightly forgtful today. Complaints of fatigue; very politely states he wants to "resume the nap." He denies fever, chills, chest pain, palpitations, dyspnea, orthopnea, abdominal pain, nausea, vomiting, diarrhea. Has no other questions or concerns at this time. No concerns per nursing. Reason For Visit: COVID-19 PNEUMONIA ACUTE HYPOXEMIC RESPIRATORY Physical Exam Vital Signs: Temp Pulse Resp BP Pulse Ox 98.3 F 72 18 143/67 H 93 03/24/20 16:00 03/24/20 16:00 03/24/20 16:00 03/24/20 16:00 03/24/20 16:00 Intake & Output 03/23/20 03/24/20 03/25/20 06:59 06:59 06:59 Intake Total 2382 2673 980 Output Total 750 1775 100 Balance 1632 898 880 Weight 73.4 kg 73.4 kg General appearance: PRESENT: no acute distress, cooperative, well-developed, well-nourished, other - frail Head exam: PRESENT: atraumatic, normocephalic Eye exam: PRESENT: conjunctiva pink, EOMI, PERRLA. ABSENT: scleral icterus Mouth exam: PRESENT: moist, tongue midline Respiratory exam: PRESENT: clear to auscultation nikolas, symmetrical, unlabored, other - supplemental oxygen via NC. ABSENT: rales, rhonchi, wheezes Cardiovascular exam: PRESENT: RRR. ABSENT: diastolic murmur, rubs, systolic murmur Pulses: PRESENT: normal dorsalis pedis pul Vascular exam: PRESENT: normal capillary refill Extremities exam: PRESENT: full ROM. ABSENT: calf tenderness, clubbing, pedal edema Neurological exam: PRESENT: alert, awake, oriented to person, oriented to place, oriented to time, oriented to situation, CN II-XII grossly intact. ABSENT: motor sensory deficit Psychiatric exam: PRESENT: appropriate affect, normal mood. ABSENT: homicidal ideation, suicidal ideation Skin exam: PRESENT: dry, intact, warm. ABSENT: cyanosis, rash Results Laboratory Results: 03/24/20 06:41 03/24/20 06:41 03/23/20 03/24/20 03/24/20 22:04 06:41 06:41 WBC 9.8 RBC 3.61 L Hgb 11.5 L Hct 33.5 L MCV 93 MCH 31.9 MCHC 34.4 RDW 14.4 H Plt Count 159 Seg Neutrophils % Not Reportable Sodium 134.7 L Potassium 4.2 Chloride 103 Carbon Dioxide 28 Anion Gap 4 L BUN 26 H Creatinine 0.88 Est GFR ( Amer) > 60 Glucose 244 H Calcium 8.6 Ferritin 376.00 03/21/20 16:25 Troponin I 0.017 Impressions: Chest X-Ray 03/21/20 15:43 IMPRESSION: Patchy bilateral infiltrates suggesting multifocal pneumonia. Assessment and Plan - Diagnosis (1) Pneumonia due to COVID-19 virus Is this a current diagnosis for this admission?: Yes Plan: Symptoms/history consistent with covid-19 infection -Covid-19 positive: 03/17/20 -CXR showed: Patchy bilateral infiltrates Supplemental oxygen and BiPAP/CPAP as needed currently maintaining oxygen saturations on supplemental oxygen by nasal cannula 2 L/min. Standard of care vitamin supplements: zinc, ascorbic acid, vitamin d, melatonin As needed combivent/nebs as able Ivermectin x2 doses Doxycycline x5 days Solu-medrol Full dose Lovenox; do not hold anticoagulation unless actively bleeding or platelet count <50. Discussed w/ son; patient recently on Eliquis for DVT. Was discontinued last month; this may account for some of the patient's d. dimer elevation. Close monitoring for acute respiratory decline requiring ICU transfer and intubation - Current literature does not show clear benefit from the use of remdesivir, plaquenil, and convalescent plasma (2) Acute hypoxemic respiratory failure Is this a current diagnosis for this admission?: Yes Plan: Due to COVID-19 pneumonia Suspect possible underlying COPD as well given extensive smoking history Nebulizer treatments Supplemental oxygen to maintain saturation of at least 90% (3) T2DM (type 2 diabetes mellitus) Qualifiers: Diabetes mellitus chcf insulin use: with chcf use Diabetes mellitus complication status: with hyperglycemia Qualified Code(s): E11.65 - Type 2 diabetes mellitus with hyperglycemia; Z79.4 - jail (current) use of insulin Is this a current diagnosis for this admission?: Yes Plan: T2DM; A1c 7.8%. -accucheks, sliding scale insulin -Consistent carb diet -diet counseling -outpt FU with PCP (4) GERD (gastroesophageal reflux disease) Qualifiers: Esophagitis presence: esophagitis presence not specified Qualified Code(s): K21.9 - Gastro-esophageal reflux disease without esophagitis Is this a current diagnosis for this admission?: Yes Plan: Currently without symptoms, can add PPI if needed (5) HTN (hypertension), benign Is this a current diagnosis for this admission?: Yes Plan: Home medications (6) HLD (hyperlipidemia) Is this a current diagnosis for this admission?: Yes Plan: Statin (7) Former smoker Is this a current diagnosis for this admission?: Yes Plan: Suspect underlying COPD, per patient never diagnosed with this Extensive smoking history, quit years ago - Time Time Spent with patient: 25-34 minutes Medications reviewed and adjusted accordingly: Yes Anticipated Discharge Disposition: Home with Home Health Anticipated Discharge Timeframe: within 72 hours
[2020-03-24] MEDS: DOXYCYCLINE HYCLATE 100 MG in DEXTROSE 5%-WATER 250 ML IV SCH (21:16)
[2020-03-24] MEDS: ATORVASTATIN CALCIUM 20 MG TABLET PO SCH (21:17)
[2020-03-24] MEDS: IVERMECTIN 3 MG TABLET PO SCH (21:18)
[2020-03-24] MEDS: MELATONIN 5 MG TABLET PO SCH (21:18)
[2020-03-25 07:24] LABS: HEMATOCRIT 36.2 % (37.9-51.0); HEMOGLOBIN 12.5 g/dL (13.5-17.0); MEAN CORPUSCULAR HEMOGLOBIN 32.3 pg (27.0-33.4); MEAN CORPUSCULAR HGB CONC 34.4 g/dL (32.0-36.0); MEAN CORPUSCULAR VOLUME 94 fl (80-97); PLATELET COUNT 151 10^3/uL (150-450); RED BLOOD COUNT 3.87 10^6/uL (4.35-5.55); RED CELL DISTRIBUTION WIDTH 14.3 % (11.5-14.0); WHITE BLOOD COUNT 9.1 10^3/uL (4.0-10.5)
[2020-03-25 07:30] LABS: APPEARANCE,URINE CLEAR; BILIRUBIN,URINE NEGATIVE (NEGATIVE); COLOR,URINE YELLOW; GLUCOSE, URINE >=500 mg/dL (NEGATIVE); KETONES,URINE NEGATIVE (NEGATIVE); LEUKOCYTE ESTERASE,URINE NEGATIVE (NEGATIVE); NITRITE,URINE NEGATIVE (NEGATIVE); PROTEIN,URINE NEGATIVE (NEGATIVE); UROBILINOGEN,URINE NEGATIVE mg/dL (<2.0)
[2020-03-25] MEDS: INSULIN LISPRO 100 UNIT/ML 3 ML VIAL SUBCUT SCH ×4 (08:09→21:27)
[2020-03-25] MEDS: GLIPIZIDE 5 MG TABLET PO SCH (11:56)
[2020-03-25] MEDS: METHYLPREDNISOLONE INJ 40 MG/1 ML SDV IV SCH ×2 (11:56→21:24)
[2020-03-25] MEDS: ZINC SULFATE 220 MG CAPSULE PO SCH (11:57)
[2020-03-25] MEDS: MIDODRINE HCL 5 MG TABLET PO SCH ×3 (11:57→17:49)
[2020-03-25] MEDS: ASCORBIC ACID 500 MG TABLET PO SCH ×2 (11:58→17:51)
[2020-03-25] MEDS: DOCUSATE SODIUM 100 MG CAPSULE PO SCH (11:58)
[2020-03-25] MEDS: VITAMIN B COMPLEX TABLET PO SCH (11:58)
[2020-03-25] MEDS: CHOLECALCIFEROL (D3) 1,000 UNIT (25 MCG) TABLET PO SCH (12:05)
[2020-03-25] MEDS: ENOXAPARIN SODIUM INJ 80 MG/0.8 ML DISP.SYRIN SUBCUT SCH ×2 (12:05→21:25)
[2020-03-25 14:58] LABS: ARTERIAL BLOOD BASE EXCESS 0 mmol/L; ARTERIAL BLOOD H2CO3 0.92 mmol/L (1.05-1.35); ARTERIAL BLOOD HCO3 22.7 mmol/L (20-24); ARTERIAL BLOOD O2 SATURATION 95.8 % (94-98); ARTERIAL BLOOD PCO2 30.7 mmHg (35-45); ARTERIAL BLOOD PH 7.49 (7.35-7.45); ARTERIAL BLOOD PO2 72.6 mmHg (80-100); ARTERIAL BLOOD TOTAL CO2 23.6 mmol/L (23-27)
[2020-03-25 15:00] LABS: ARTERIAL BLOOD FIO2 3L
[2020-03-25] MEDS: PROPRANOLOL HCL 20 MG TABLET PO SCH ×2 (15:04→21:24)
--- NOTE | 2020-03-25 15:40 | PDOC PROGRESS REPORT ---
Subjective Date:: 03/25/20 Subjective:: Patient was seen on afternoon rounds. Found resting in bed, comfortably, on supplemental oxygen by nasal cannula at 3lpm. He is A&O to self; speaking incoherently (word salad). He does follow directions and is noted to move all extremities spontaneously. Seems very confused; keeps handing me the telemetry box and stating, "that's the [place]." Nursing states that change in mentation occurred overnight. ROS is therefor limited. Reason For Visit: COVID-19 PNEUMONIA ACUTE HYPOXEMIC RESPIRATORY Physical Exam Vital Signs: Temp Pulse Resp BP Pulse Ox 97.9 F 123 H 23 H 100/64 94 03/25/20 12:11 03/25/20 12:11 03/25/20 12:11 03/25/20 12:11 03/25/20 12:11 Intake & Output 03/24/20 03/25/20 03/26/20 06:59 06:59 06:59 Intake Total 2673 3050 118 Output Total 1775 995 Balance 898 2055 118 Weight 73.4 kg 72.8 kg General appearance: PRESENT: no acute distress, well-developed, well-nourished, other - frail appearing Head exam: PRESENT: atraumatic, normocephalic Eye exam: PRESENT: conjunctiva pink, EOMI, PERRLA. ABSENT: scleral icterus Mouth exam: PRESENT: moist, tongue midline Respiratory exam: PRESENT: clear to auscultation nikolas, symmetrical, unlabored, other - supplemental oxygen via NC. ABSENT: rales, rhonchi, wheezes Cardiovascular exam: PRESENT: RRR, tachycardia. ABSENT: diastolic murmur, rubs, systolic murmur Pulses: PRESENT: normal dorsalis pedis pul Vascular exam: PRESENT: normal capillary refill Rectal exam: PRESENT: deferred Extremities exam: PRESENT: full ROM - moves all extremities. ABSENT: calf tenderness, clubbing, pedal edema Neurological exam: PRESENT: alert, awake, oriented to person, other - Makes eye contact, speaks/responds in word salad, no facial asymetry noted, moves all extremities Psychiatric exam: PRESENT: appropriate affect, normal mood. ABSENT: homicidal ideation, suicidal ideation Skin exam: PRESENT: dry, intact, warm. ABSENT: cyanosis, rash Results Laboratory Results: 03/25/20 06:30 03/24/20 06:41 03/25/20 03/25/20 03/25/20 06:24 06:30 14:35 WBC 9.1 RBC 3.87 L Hgb 12.5 L Hct 36.2 L MCV 94 MCH 32.3 MCHC 34.4 RDW 14.3 H Plt Count 151 Carbonic Acid 0.92 L HCO3/H2CO3 Ratio 24:1 ABG pH 7.49 H ABG pCO2 30.7 L ABG pO2 72.6 L ABG HCO3 22.7 ABG O2 Saturation 95.8 ABG Base Excess 0 FiO2 3L Urine Color YELLOW Urine Appearance CLEAR Urine pH 6.0 Ur Specific [place] 1.010 Urine Protein NEGATIVE Urine Glucose (UA) >=500 H Urine Ketones NEGATIVE Urine Blood NEGATIVE Urine Nitrite NEGATIVE Ur Leukocyte Esterase NEGATIVE Urine WBC (Auto) 1 03/21/20 16:25 Troponin I 0.017 Impressions: Chest X-Ray 03/21/20 15:43 IMPRESSION: Patchy bilateral infiltrates suggesting multifocal pneumonia. Assessment and Plan - Diagnosis (1) Altered mental status Qualifiers: Altered mental status type: unspecified Qualified Code(s): R41.82 - Altered mental status, unspecified Is this a current diagnosis for this admission?: Yes Plan: Patient with incoherent speech today (word salad). No facial asymmetry or focal deficits noted. Somewhat irritable and picking and sheets, lines, tele box etc. Per nursing, confusion and difficulty w/ speech was noted upon assuming care this am; seemed to worsen following PT and was attributed to fatigue. Suspected hypoxia or hypercapnia, however, ABG was reassuring: pH 7.49. pCO2 30.7, pO2 72.6, HCO3 22.7 Will obtain STAT Head CT. (2) Pneumonia due to COVID-19 virus Is this a current diagnosis for this admission?: Yes Plan: Symptoms/history consistent with covid-19 infection -Covid-19 positive: 03/17/20 -CXR showed: Patchy bilateral infiltrates ABG (on 3lpm via NC) is reassuring Supplemental oxygen and BiPAP/CPAP as needed. Standard of care vitamin supplements: zinc, ascorbic acid, vitamin d, melatonin As needed combivent/nebs as able Ivermectin x2 doses Doxycycline x5 days Solu-medrol Full dose Lovenox; do not hold anticoagulation unless actively bleeding or platelet count <50. Discussed w/ son; patient recently on Eliquis for DVT. Was discontinued last month; this may account for some of the patient's d. dimer elevation. Close monitoring for acute respiratory decline requiring ICU transfer and intubation - Current literature does not show clear benefit from the use of remdesivir, plaquenil, and convalescent plasma (3) Acute hypoxemic respiratory failure Is this a current diagnosis for this admission?: Yes Plan: Due to COVID-19 pneumonia Suspect possible underlying COPD as well given extensive smoking history Nebulizer treatments Supplemental oxygen to maintain saturation of at least 90% (4) T2DM (type 2 diabetes mellitus) Qualifiers: Diabetes mellitus usp insulin use: with buttermaker use Diabetes mellitus complication status: with hyperglycemia Qualified Code(s): E11.65 - Type 2 diabetes mellitus with hyperglycemia; Z79.4 - watermaster (current) use of insulin Is this a current diagnosis for this admission?: Yes Plan: T2DM; A1c 7.8%. -accucheks, sliding scale insulin -Consistent carb diet -diet counseling -outpt FU with PCP (5) GERD (gastroesophageal reflux disease) Qualifiers: Esophagitis presence: esophagitis presence not specified Qualified Code(s): K21.9 - Gastro-esophageal reflux disease without esophagitis Is this a current diagnosis for this admission?: Yes Plan: Currently without symptoms, can add PPI if needed (6) HTN (hypertension), benign Is this a current diagnosis for this admission?: Yes Plan: Home medications (7) HLD (hyperlipidemia) Is this a current diagnosis for this admission?: Yes Plan: Statin (8) Former smoker Is this a current diagnosis for this admission?: Yes Plan: Suspect underlying COPD, per patient never diagnosed with this Extensive smoking history, quit years ago - Time Time Spent with patient: 35 or more minutes Medications reviewed and adjusted accordingly: Yes Anticipated Discharge Disposition: Home with Home Health Anticipated Discharge Timeframe: TBD
--- NOTE | 2020-03-25 19:47 | RADIOLOGY REPORT (SQ) ---
EXAM DESCRIPTION: CT HEAD WITHOUT IMAGES COMPLETED DATE/TIME: 03/25/2020 6:39 pm REASON FOR STUDY: ams; expressive aphasia COMPARISON: 2015 TECHNIQUE: Axial images acquired through the brain without intravenous contrast. Images reviewed wi th bone, brain and subdural windows. Additional sagittal and coronal reconstructions were generated. Images stored on PACS. All CT scanners at this facility use dose modulation, iterative reconstruction, and/or weight based d osing when appropriate to reduce radiation dose to as low as reasonably achievable (ALARA). [facility]: Dose Right [facility]: CareDose [facility]: Dose Right [facility]: Teradose 4D [facility]: [employer] RADIATION DOSE: CT Rad equipment meets quality standard of care and radiation dose reduction techniq ues were employed. CTDIvol: 53.2 mGy. DLP: 937 mGy-cm. mGy. LIMITATIONS: None. FINDINGS: VENTRICLES: Prominent ventricles secondary to involutional atrophy. CEREBRUM: Cortical atrophy. No masses. No hemorrhage. No midline shift. No evidence for acute inf arction. Areas of low density in the white matter most likely chronic small vessel ischemic changes. CEREBELLUM: No masses. No hemorrhage. No alteration of density. No evidence for acute infarction. EXTRAAXIAL SPACES: No fluid collections. No masses. ORBITS AND GLOBE: No intra- or extraconal masses. Normal contour of globe without masses. CALVARIUM: No fracture. PARANASAL SINUSES: No fluid or mucosal thickening. SOFT TISSUES: No mass or hematoma. OTHER: No other significant finding. IMPRESSION: MICROVASCULAR ISCHEMIA AND GENERALIZED ATROPHY. NO ACUTE IMAGING FINDINGS IN THE BRAIN EVIDENCE OF ACUTE STROKE: NO. COMMENT: Quality ID # [id number]: Final reports with documentation of one or more dose reduction techniques (e.g., Automated exposure control, adjustment of the mA and/or kV according to patient size, use of iterative reconstruction technique) TECHNICAL DOCUMENTATION: JOB ID: [id number] 2010 [employer]- All Rights Reserved Reading location - IP/workstation name: [email or web address]
[2020-03-25] MEDS: MELATONIN 5 MG TABLET PO SCH (21:24)
[2020-03-25] MEDS: ATORVASTATIN CALCIUM 20 MG TABLET PO SCH (21:25)
[2020-03-25] MEDS: DOXYCYCLINE HYCLATE 100 MG in DEXTROSE 5%-WATER 250 ML IV SCH (21:29)
[2020-03-26] MEDS ORDERED: ZIPRASIDONE MESYLATE INJ/PF 20 MG SDV IM ONE (02:00)
[2020-03-26] MEDS: RINGERS SOLUTION,LACTATED 1,000 ML IV PRN ×2 (02:43→17:07)
[2020-03-26] MEDS: PROPRANOLOL HCL 20 MG TABLET PO SCH ×3 (08:00→22:19)
[2020-03-26] MEDS: INSULIN LISPRO 100 UNIT/ML 3 ML VIAL SUBCUT SCH ×4 (08:41→22:20)
[2020-03-26 10:03] LABS: ABSOLUTE BASOPHILS # (AUTO) 0.1 10^3/uL (0.0-0.2); ABSOLUTE MONOCYTES (AUTO) 0.5 10^3/uL (0.1-1.4); BASOPHILS % (AUTO) 0.7 % (0-2); HEMATOCRIT 34.1 % (37.9-51.0); HEMOGLOBIN 11.4 g/dL (13.5-17.0); MEAN CORPUSCULAR HEMOGLOBIN 30.9 pg (27.0-33.4); MEAN CORPUSCULAR HGB CONC 33.3 g/dL (32.0-36.0); MEAN CORPUSCULAR VOLUME 93 fl (80-97); PLATELET COUNT 191 10^3/uL (150-450); RED BLOOD COUNT 3.68 10^6/uL (4.35-5.55); RED CELL DISTRIBUTION WIDTH 14.5 % (11.5-14.0); SEGMENTED NEUTROPHILS % (AUTO) 84.3 % (42-78); TOTAL CELLS COUNTED % (AUTO) 100 %; WHITE BLOOD COUNT 9.5 10^3/uL (4.0-10.5)
[2020-03-26] MEDS: ZINC SULFATE 220 MG CAPSULE PO SCH (10:39)
[2020-03-26] MEDS: CHOLECALCIFEROL (D3) 1,000 UNIT (25 MCG) TABLET PO SCH (10:40)
[2020-03-26] MEDS: VITAMIN B COMPLEX TABLET PO SCH (10:40)
[2020-03-26] MEDS: GLIPIZIDE 5 MG TABLET PO SCH (10:40)
[2020-03-26] MEDS: ASCORBIC ACID 500 MG TABLET PO SCH ×2 (10:40→17:04)
[2020-03-26] MEDS: MIDODRINE HCL 5 MG TABLET PO SCH ×3 (10:40→17:05)
[2020-03-26] MEDS: METHYLPREDNISOLONE INJ 40 MG/1 ML SDV IV SCH ×2 (10:41→22:18)
[2020-03-26] MEDS: DOCUSATE SODIUM 100 MG CAPSULE PO SCH (10:41)
[2020-03-26] MEDS: ENOXAPARIN SODIUM INJ 80 MG/0.8 ML DISP.SYRIN SUBCUT SCH ×2 (10:47→22:20)
[2020-03-26 13:19] LABS: ALBUMIN 2.4 g/dL (3.5-5.0); ALKALINE PHOSPHATASE 50 U/L (38-126); ANION GAP 7 (5-19); ASPARTATE AMINO TRANSFERASE 32 U/L (17-59); BILIRUBIN,DIRECT 0.6 mg/dL (0.0-0.4); BILIRUBIN,TOTAL 0.6 mg/dL (0.2-1.3); BLOOD UREA NITROGEN 45 mg/dL (7-20); CARBON DIOXIDE 26 mmol/L (22-30); CHLORIDE 102 mmol/L (98-107); GLUCOSE 213 mg/dL (75-110); POTASSIUM 3.6 mmol/L (3.6-5.0); TOTAL PROTEIN 4.8 g/dL (6.3-8.2)
--- NOTE | 2020-03-26 17:11 | PDOC PROGRESS REPORT ---
Subjective Date:: 03/26/20 Subjective:: Patient was seen on morning rounds. Found resting in bed, comfortably, on supplemental oxygen by nasal cannula at 3lpm. He is A&O to self and place. He remains confused, though less so than yesterday, and now speaking clearly and following directions. Remains very fatigued. He denies chest pain, abd pain, n/v/d. Does confirm dyspnea when asked. Reports good appetite today. He has no questions or concerns at this time. No concerns per nursing. Reason For Visit: COVID-19 PNEUMONIA ACUTE HYPOXEMIC RESPIRATORY Physical Exam Vital Signs: Temp Pulse Resp BP Pulse Ox 98.1 F 83 18 100/68 93 03/26/20 16:00 03/26/20 16:00 03/26/20 16:00 03/26/20 16:00 03/26/20 16:00 Intake & Output 03/25/20 03/26/20 03/27/20 06:59 06:59 06:59 Intake Total 3050 1586 260 Output Total 995 680 Balance 2055 906 260 Weight 72.8 kg 73 kg General appearance: PRESENT: no acute distress, cooperative, well-developed, well-nourished, other - frail appearing Head exam: PRESENT: atraumatic, normocephalic Eye exam: PRESENT: conjunctiva pink, EOMI, PERRLA. ABSENT: scleral icterus Mouth exam: PRESENT: moist, tongue midline Respiratory exam: PRESENT: clear to auscultation nikolas, symmetrical, unlabored, other - supplemental oxygen by NC. ABSENT: rales, rhonchi, wheezes Cardiovascular exam: PRESENT: RRR. ABSENT: diastolic murmur, rubs, systolic murmur Pulses: PRESENT: normal dorsalis pedis pul Vascular exam: PRESENT: normal capillary refill Extremities exam: PRESENT: full ROM. ABSENT: calf tenderness, clubbing, pedal edema Neurological exam: PRESENT: alert, awake, oriented to person, oriented to place, CN II-XII grossly intact, other - intermittently confused; improved from yesterday. ABSENT: motor sensory deficit Psychiatric exam: PRESENT: appropriate affect, normal mood. ABSENT: homicidal ideation, suicidal ideation Skin exam: PRESENT: dry, warm. ABSENT: cyanosis, rash Results Laboratory Results: 03/26/20 09:25 03/26/20 12:39 03/26/20 03/26/20 03/26/20 09:25 09:25 12:39 WBC 9.5 RBC 3.68 L Hgb 11.4 L Hct 34.1 L MCV 93 MCH 30.9 MCHC 33.3 RDW 14.5 H Plt Count 191 Seg Neutrophils % 84.3 H Sodium Cancelled 134.9 L Potassium Cancelled 3.6 Chloride Cancelled 102 Carbon Dioxide Cancelled 26 Anion Gap Cancelled 7 BUN Cancelled 45 H Creatinine Cancelled 0.87 Est GFR ( Amer) Cancelled > 60 Est GFR (Non-Af Amer) Cancelled Glucose Cancelled 213 H Calcium Cancelled 9.0 Total Bilirubin Cancelled 0.6 AST Cancelled 32 Alkaline Phosphatase Cancelled 50 Total Protein Cancelled 4.8 L Albumin Cancelled 2.4 L 03/21/20 16:22 Blood Blood Culture - Final NO GROWTH IN 5 DAYS 03/21/20 16:25 Blood Blood Culture - Final NO GROWTH IN 5 DAYS 03/21/20 16:25 Troponin I 0.017 Impressions: Chest X-Ray 03/21/20 15:43 IMPRESSION: Patchy bilateral infiltrates suggesting multifocal pneumonia. Head CT 03/25/20 00:00 IMPRESSION: MICROVASCULAR ISCHEMIA AND GENERALIZED ATROPHY. NO ACUTE IMAGING FINDINGS IN THE BRAIN EVIDENCE OF ACUTE STROKE: NO. Assessment and Plan - Diagnosis (1) Pneumonia due to COVID-19 virus Is this a current diagnosis for this admission?: Yes Plan: Symptoms/history consistent with covid-19 infection -Covid-19 positive: 03/17/20 -CXR showed: Patchy bilateral infiltrates ABG (on 3lpm via NC) is reassuring Supplemental oxygen and BiPAP/CPAP as needed. Standard of care vitamin supplements: zinc, ascorbic acid, vitamin d, melatonin As needed combivent/nebs as able Ivermectin x2 doses Doxycycline; Day #4/5 Solu-medrol; will begin weaning toward prednisone taper Full dose Lovenox; do not hold anticoagulation unless actively bleeding or platelet count <50. Discussed w/ son; patient recently on Eliquis for DVT. Was discontinued last month; this may account for some of the patient's d. dimer elevation. Close monitoring for acute respiratory decline requiring ICU transfer and intubation - Current literature does not show clear benefit from the use of remdesivir, plaquenil, and convalescent plasma (2) Acute hypoxemic respiratory failure Is this a current diagnosis for this admission?: Yes Plan: Due to COVID-19 pneumonia Suspect possible underlying COPD as well given extensive smoking history Nebulizer treatments Supplemental oxygen to maintain saturation of at least 90% (3) Altered mental status Qualifiers: Altered mental status type: unspecified Qualified Code(s): R41.82 - Altered mental status, unspecified Is this a current diagnosis for this admission?: Yes Plan: Improved; likely r/t acute illness. Improved speech today. Alert and orientated to self and place. Conversational and socially appropriate. No facial asymmetry or focal deficits noted. Suspected hypoxia or hypercapnia, however, ABG was reassuring: pH 7.49. pCO2 30.7, pO2 72.6, HCO3 22.[address] negative for acute findings. (4) T2DM (type 2 diabetes mellitus) Qualifiers: Diabetes mellitus fpc insulin use: with termite inspector use Diabetes mellitus complication status: with hyperglycemia Qualified Code(s): E11.65 - Type 2 diabetes mellitus with hyperglycemia; Z79.4 - predatory animal exterminator (current) use of insulin Is this a current diagnosis for this admission?: Yes Plan: T2DM; A1c 7.8%. -accucheks, sliding scale insulin -Consistent carb diet -diet counseling -outpt FU with PCP (5) GERD (gastroesophageal reflux disease) Qualifiers: Esophagitis presence: esophagitis presence not specified Qualified Code(s): K21.9 - Gastro-esophageal reflux disease without esophagitis Is this a current diagnosis for this admission?: Yes Plan: Currently without symptoms, can add PPI if needed (6) HTN (hypertension), benign Is this a current diagnosis for this admission?: Yes Plan: Home medications (7) HLD (hyperlipidemia) Is this a current diagnosis for this admission?: Yes Plan: Statin (8) Former smoker Is this a current diagnosis for this admission?: Yes Plan: Suspect underlying COPD, per patient never diagnosed with this Extensive smoking history, quit years ago - Time Time Spent with patient: 25-34 minutes Medications reviewed and adjusted accordingly: Yes Anticipated Discharge Disposition: Home with Home Health Anticipated Discharge Timeframe: within 48 hours
[2020-03-26] MEDS: ATORVASTATIN CALCIUM 20 MG TABLET PO SCH (22:19)
[2020-03-26] MEDS: MELATONIN 5 MG TABLET PO SCH (22:19)
[2020-03-26] MEDS: DOXYCYCLINE HYCLATE 100 MG in DEXTROSE 5%-WATER 250 ML IV SCH (22:21)
[2020-03-27] MEDS: PROPRANOLOL HCL 20 MG TABLET PO SCH ×3 (06:04→22:14)
[2020-03-27] MEDS: INSULIN LISPRO 100 UNIT/ML 3 ML VIAL SUBCUT SCH ×4 (08:29→22:13)
[2020-03-27] MEDS: MIDODRINE HCL 5 MG TABLET PO SCH ×3 (10:18→17:45)
[2020-03-27] MEDS: GLIPIZIDE 5 MG TABLET PO SCH (10:18)
[2020-03-27] MEDS: DOCUSATE SODIUM 100 MG CAPSULE PO SCH (10:18)
[2020-03-27] MEDS: ASCORBIC ACID 500 MG TABLET PO SCH ×2 (10:19→17:35)
[2020-03-27] MEDS: METHYLPREDNISOLONE INJ 40 MG/1 ML SDV IV SCH (10:19)
[2020-03-27] MEDS: CHOLECALCIFEROL (D3) 1,000 UNIT (25 MCG) TABLET PO SCH (10:19)
[2020-03-27] MEDS: VITAMIN B COMPLEX TABLET PO SCH (10:19)
[2020-03-27] MEDS: ENOXAPARIN SODIUM INJ 80 MG/0.8 ML DISP.SYRIN SUBCUT SCH ×2 (10:20→22:14)
[2020-03-27] MEDS: ZINC SULFATE 220 MG CAPSULE PO SCH (10:21)
[2020-03-27] MEDS: PREDNISONE 20 MG TABLET PO SCH (11:51)
--- NOTE | 2020-03-27 19:41 | PDOC PROGRESS REPORT ---
Subjective Date:: 03/27/20 Subjective:: Patient was seen on morning rounds. Found resting in bed, comfortably, on supplemental oxygen by nasal cannula at 2lpm. He is A&O to self, place and situation. He does continue to have intermittent periods of increased confusion (undressing) however, does continue to gradually improve. He is also noted to be quite fatigued. He denies chest pain, dyspnea, cough abd pain, n/v/d. He has no questions or concerns at this time. Attempted to call the patient's son, Minh [facility], [facility] to discuss recommendations for rehab. There was no answer; I did leave a message. (Minh is also ill with Covid at this time.) No concerns per nursing. Reason For Visit: COVID-19 PNEUMONIA ACUTE HYPOXEMIC RESPIRATORY Physical Exam Vital Signs: Temp Pulse Resp BP Pulse Ox 98.9 F 86 21 H 160/90 H 95 03/27/20 16:00 03/27/20 16:00 03/27/20 16:00 03/27/20 16:00 03/27/20 16:00 Intake & Output 03/26/20 03/27/20 03/28/20 06:59 06:59 06:59 Intake Total 1586 1710 120 Output Total 680 500 750 Balance 906 1210 -630 Weight 73 kg 68.2 kg General appearance: PRESENT: no acute distress, cooperative, disheveled, well- developed, well-nourished, other - Frail-appearing Head exam: PRESENT: atraumatic, normocephalic Eye exam: PRESENT: conjunctiva pink, EOMI, PERRLA. ABSENT: scleral icterus Mouth exam: PRESENT: moist, tongue midline Respiratory exam: PRESENT: clear to auscultation nikolas, symmetrical, unlabored, other - Supplemental oxygen by nasal cannula. ABSENT: rales, rhonchi, wheezes Cardiovascular exam: PRESENT: RRR. ABSENT: diastolic murmur, rubs, systolic murmur Pulses: PRESENT: normal dorsalis pedis pul Vascular exam: PRESENT: normal capillary refill GI/Abdominal exam: PRESENT: normal bowel sounds, soft. ABSENT: distended, guarding, mass, organolmegaly, rebound, tenderness Rectal exam: PRESENT: deferred Extremities exam: PRESENT: full ROM. ABSENT: calf tenderness, clubbing, pedal edema Musculoskeletal exam: PRESENT: ambulatory - Max assist x2 for transfers Neurological exam: PRESENT: alert, awake, oriented to person, oriented to place, oriented to situation, CN II-XII grossly intact, other - Intermittently confus ed/disoriented. ABSENT: oriented to time, motor sensory deficit Psychiatric exam: PRESENT: appropriate affect, normal mood. ABSENT: homicidal ideation, suicidal ideation Skin exam: PRESENT: dry, warm. ABSENT: cyanosis, rash Results Laboratory Results: 03/26/20 09:25 03/26/20 12:39 03/21/20 16:22 Blood Blood Culture - Final NO GROWTH IN 5 DAYS 03/21/20 16:25 Blood Blood Culture - Final NO GROWTH IN 5 DAYS 03/21/20 16:25 Troponin I 0.017 Impressions: Chest X-Ray 03/21/20 15:43 IMPRESSION: Patchy bilateral infiltrates suggesting multifocal pneumonia. Head CT 03/25/20 00:00 IMPRESSION: MICROVASCULAR ISCHEMIA AND GENERALIZED ATROPHY. NO ACUTE IMAGING FINDINGS IN THE BRAIN EVIDENCE OF ACUTE STROKE: NO. Assessment and Plan - Diagnosis (1) Pneumonia due to COVID-19 virus Is this a current diagnosis for this admission?: Yes Plan: Symptoms/history consistent with covid-19 infection -Covid-19 positive: 03/17/20 -CXR showed: Patchy bilateral infiltrates ABG (on 3lpm via NC) is reassuring Supplemental oxygen and BiPAP/CPAP as needed. Standard of care vitamin supplements: zinc, ascorbic acid, vitamin d, melatonin As needed combivent/nebs as able Ivermectin x2 doses Completed 5 day course of Doxycycline Transition to prednisone; slow taper Full dose Lovenox; do not hold anticoagulation unless actively bleeding or platelet count <50. Discussed w/ son; patient recently on Eliquis for DVT. Was discontinued last month; this may account for some of the patient's d. dimer elevation. Close monitoring for acute respiratory decline requiring ICU transfer and intubation - Current literature does not show clear benefit from the use of remdesivir, plaquenil, and convalescent plasma (2) Acute hypoxemic respiratory failure Is this a current diagnosis for this admission?: Yes Plan: Due to COVID-19 pneumonia Suspect possible underlying COPD as well given extensive smoking history Nebulizer treatments Supplemental oxygen to maintain saturation of 90-94% (3) Altered mental status Qualifiers: Altered mental status type: unspecified Qualified Code(s): R41.82 - Altered mental status, unspecified Is this a current diagnosis for this admission?: Yes Plan: Improved; clear speech today and no longer with word salad. He is technically alert and oriented to person, place, situation; however, becomes confused and falls off topic early in response to questions. Towards the afternoon, did begin undressing. Will attempt to get out of bed. Redirectable. Attempted to call the patient's son today to discuss his baseline mentation (likely underlying dementia) and to recommend SNF placement. No answer; voicemail left. Likely delirium r/t acute illness and steroids. ABG was reassuring: pH 7.49. pCO2 30.7, pO2 72.6, HCO3 22.[address] negative for acute findings. Supportive care. Safety and fall precautions (4) T2DM (type 2 diabetes mellitus) Qualifiers: Diabetes mellitus clinical nursing coordinator insulin use: with clinical nursing coordinator use Diabetes mellitus complication status: with hyperglycemia Qualified Code(s): E11.65 - Type 2 diabetes mellitus with hyperglycemia; Z79.4 - national business director (current) use of insulin Is this a current diagnosis for this admission?: Yes Plan: T2DM; A1c 7.8%. -accucheks, sliding scale insulin -Consistent carb diet -diet counseling -outpt FU with PCP (5) GERD (gastroesophageal reflux disease) Qualifiers: Esophagitis presence: esophagitis presence not specified Qualified Code(s): K21.9 - Gastro-esophageal reflux disease without esophagitis Is this a current diagnosis for this admission?: Yes Plan: Currently without symptoms, can add PPI if needed (6) HTN (hypertension), benign Is this a current diagnosis for this admission?: Yes Plan: Home medications (7) HLD (hyperlipidemia) Is this a current diagnosis for this admission?: Yes Plan: Statin (8) Former smoker Is this a current diagnosis for this admission?: Yes Plan: Suspect underlying COPD, per patient never diagnosed with this Extensive smoking history, quit years ago - Time Time Spent with patient: 35 or more minutes Medications reviewed and adjusted accordingly: Yes Anticipated Discharge Disposition: [facility] Facility Anticipated Discharge Timeframe: when bed available
[2020-03-27] MEDS: MELATONIN 5 MG TABLET PO SCH (22:13)
[2020-03-27] MEDS: ATORVASTATIN CALCIUM 20 MG TABLET PO SCH (22:13)
[2020-03-28] MEDS: PROPRANOLOL HCL 20 MG TABLET PO SCH ×3 (06:02→21:40)
[2020-03-28] MEDS: INSULIN LISPRO 100 UNIT/ML 3 ML VIAL SUBCUT SCH ×4 (08:07→21:40)
[2020-03-28 08:22] LABS: BLOOD UREA NITROGEN 38 mg/dL (7-20); CALCIUM 8.9 mg/dL (8.4-10.2); GLUCOSE 210 mg/dL (75-110); POTASSIUM 3.8 mmol/L (3.6-5.0)
[2020-03-28 08:27] LABS: CARBON DIOXIDE 30 mmol/L (22-30); CHLORIDE 102 mmol/L (98-107)
[2020-03-28 08:34] LABS: ANION GAP 3 (5-19)
[2020-03-28] MEDS: MIDODRINE HCL 5 MG TABLET PO SCH ×3 (09:35→17:08)
[2020-03-28] MEDS: ZINC SULFATE 220 MG CAPSULE PO SCH (09:35)
[2020-03-28] MEDS: GLIPIZIDE 5 MG TABLET PO SCH (09:35)
[2020-03-28] MEDS: VITAMIN B COMPLEX TABLET PO SCH (09:36)
[2020-03-28] MEDS: PREDNISONE 20 MG TABLET PO SCH (09:36)
[2020-03-28] MEDS: ASCORBIC ACID 500 MG TABLET PO SCH ×2 (09:36→17:08)
[2020-03-28] MEDS: DOCUSATE SODIUM 100 MG CAPSULE PO SCH (09:36)
[2020-03-28] MEDS: CHOLECALCIFEROL (D3) 1,000 UNIT (25 MCG) TABLET PO SCH (09:36)
[2020-03-28] MEDS: ENOXAPARIN SODIUM INJ 80 MG/0.8 ML DISP.SYRIN SUBCUT SCH ×2 (09:37→21:40)
[2020-03-28 11:11] LABS: HEMATOCRIT 27.4 % (37.9-51.0); MEAN CORPUSCULAR HEMOGLOBIN 31.2 pg (27.0-33.4); MEAN CORPUSCULAR HGB CONC 33.7 g/dL (32.0-36.0); MEAN CORPUSCULAR VOLUME 93 fl (80-97); PLATELET COUNT 211 10^3/uL (150-450); RED BLOOD COUNT 2.96 10^6/uL (4.35-5.55); RED CELL DISTRIBUTION WIDTH 14.5 % (11.5-14.0); WHITE BLOOD COUNT 13.8 10^3/uL (4.0-10.5)
[2020-03-28 11:13] LABS: HEMOGLOBIN 9.2 g/dL (13.5-17.0)
[2020-03-28 14:38] LABS: APPEARANCE,URINE CLEAR; BILIRUBIN,URINE NEGATIVE (NEGATIVE); COLOR,URINE YELLOW; GLUCOSE, URINE 150 mg/dL (NEGATIVE); KETONES,URINE TRACE mg/dL (NEGATIVE); LEUKOCYTE ESTERASE,URINE NEGATIVE (NEGATIVE); NITRITE,URINE NEGATIVE (NEGATIVE); PROTEIN,URINE NEGATIVE (NEGATIVE); UROBILINOGEN,URINE NEGATIVE mg/dL (<2.0)
--- NOTE | 2020-03-28 16:51 | PDOC PROGRESS REPORT ---
Subjective Date:: 03/28/20 Subjective:: Patient was seen on morning rounds. Found resting in bed, comfortably, on supplemental oxygen by nasal cannula at 2lpm. He is A&O to self, place and situation. He does continue to have intermittent periods of increased confusion; continues to improve. He appears fatigued today; states he wants to be left alone. He denies chest pain, dyspnea, cough abd pain, n/v/d. He has no questions or concerns at this time. No concerns per nursing. Reason For Visit: COVID-19 PNEUMONIA ACUTE HYPOXEMIC RESPIRATORY Physical Exam Vital Signs: Temp Pulse Resp BP Pulse Ox 97.3 F 103 H 17 138/86 H 99 03/28/20 12:00 03/28/20 12:00 03/28/20 12:00 03/28/20 12:00 03/28/20 12:00 Intake & Output 03/27/20 03/28/20 03/29/20 06:59 06:59 06:59 Intake Total 1710 240 Output Total 500 1050 Balance 1210 -810 Weight 68.2 kg 68.2 kg General appearance: PRESENT: no acute distress, cooperative, well-developed, well-nourished Head exam: PRESENT: atraumatic, normocephalic Eye exam: PRESENT: conjunctiva pink, EOMI, PERRLA. ABSENT: scleral icterus Mouth exam: PRESENT: moist, tongue midline Respiratory exam: PRESENT: clear to auscultation nikolas, symmetrical, unlabored, other - supplemental oxygen by NC. ABSENT: rales, rhonchi, wheezes Cardiovascular exam: PRESENT: RRR. ABSENT: diastolic murmur, rubs, systolic murmur Pulses: PRESENT: normal dorsalis pedis pul Vascular exam: PRESENT: normal capillary refill Extremities exam: PRESENT: full ROM. ABSENT: calf tenderness, clubbing, pedal edema Musculoskeletal exam: ABSENT: ambulatory - Moderate assist x2 for transfers Neurological exam: PRESENT: alert, awake, oriented to person, oriented to place, oriented to situation, CN II-XII grossly intact, other - Intermittently confused/disoriented. ABSENT: oriented to time, motor sensory deficit Psychiatric exam: PRESENT: appropriate affect, normal mood. ABSENT: homicidal ideation, suicidal ideation Skin exam: PRESENT: dry, warm. ABSENT: cyanosis, rash Results Laboratory Results: 03/28/20 10:20 03/28/20 07:40 03/28/20 03/28/20 03/28/20 07:40 07:40 10:20 WBC Cancelled 13.8 H RBC Cancelled 2.96 L Hgb Cancelled 9.2 L D Hct Cancelled 27.4 L MCV Cancelled 93 MCH Cancelled 31.2 MCHC Cancelled 33.7 RDW Cancelled 14.5 H Plt Count Cancelled 211 Sodium 134.7 L Potassium 3.8 Chloride 102 Carbon Dioxide 30 Anion Gap 3 L BUN 38 H Creatinine 0.82 Est GFR ( Amer) > 60 Glucose 210 H Calcium 8.9 Ferritin 219.00 Urine Color Urine Appearance Urine pH Ur Specific [place] Urine Protein Urine Glucose (UA) Urine Ketones Urine Blood Urine Nitrite Ur Leukocyte Esterase Urine WBC (Auto) Urine RBC (Auto) 03/28/20 14:00 WBC RBC Hgb Hct MCV MCH MCHC RDW Plt Count Sodium Potassium Chloride Carbon Dioxide Anion Gap BUN Creatinine Est GFR ( Amer) Glucose Calcium Ferritin Urine Color YELLOW Urine Appearance CLEAR Urine pH 6.0 Ur Specific [place] 1.020 Urine Protein NEGATIVE Urine Glucose (UA) 150 H Urine Ketones TRACE H Urine Blood NEGATIVE Urine Nitrite NEGATIVE Ur Leukocyte Esterase NEGATIVE Urine WBC (Auto) 2 Urine RBC (Auto) 0 03/21/20 16:25 Troponin I 0.017 Impressions: Chest X-Ray 03/21/20 15:43 IMPRESSION: Patchy bilateral infiltrates suggesting multifocal pneumonia. Head CT 03/25/20 00:00 IMPRESSION: MICROVASCULAR ISCHEMIA AND GENERALIZED ATROPHY. NO ACUTE IMAGING FINDINGS IN THE BRAIN EVIDENCE OF ACUTE STROKE: NO. Assessment and Plan - Diagnosis (1) Pneumonia due to COVID-19 virus Is this a current diagnosis for this admission?: Yes Plan: Improved; now stable for discharge. Symptoms/history consistent with covid-19 infection -Covid-19 positive: 03/17/20 -CXR showed: Patchy bilateral infiltrates ABG (on 3lpm via NC) is reassuring Supplemental oxygen as needed. Currently maintaining oxygen saturations on 2 L by nasal cannula. Standard of care vitamin supplements: zinc, ascorbic acid, vitamin d, melatonin As needed nebs as able Ivermectin x2 doses Completed 5 day course of Doxycycline Transition to prednisone; slow taper Full dose Lovenox; continue to check D-dimer periodically. If remains >1 at time of discharge, recommend DVT prophylactic dose Xarelto 10 mg daily. - Current literature does not show clear benefit from the use of remdesivir, plaquenil, and convalescent plasma (2) Acute hypoxemic respiratory failure Is this a current diagnosis for this admission?: Yes Plan: Due to COVID-19 pneumonia Suspect possible underlying COPD as well given extensive smoking history Nebulizer treatments Supplemental oxygen to maintain saturation of 90-94% (3) Altered mental status Qualifiers: Altered mental status type: unspecified Qualified Code(s): R41.82 - Altered mental status, unspecified Is this a current diagnosis for this admission?: Yes Plan: Continues to improve; clear speech today. A&O to person, place, situation. Intermittent confusion. Redirectable. Likely delirium r/t acute illness and steroids in patient with underlying early dementia. ABG was reassuring: pH 7.49. pCO2 30.7, pO2 72.6, HCO3 22.[address] negative for acute findings. Supportive care. Safety and fall precautions (4) T2DM (type 2 diabetes mellitus) Qualifiers: Diabetes mellitus terminal make up operator insulin use: with terminal make up operator use Diabetes me llitus complication status: with hyperglycemia Qualified Code(s): E11.65 - Type 2 diabetes mellitus with hyperglycemia; Z79.4 - moth exterminator (current) use of insulin Is this a current diagnosis for this admission?: Yes Plan: T2DM; A1c 7.8%. -accucheks, sliding scale insulin -Consistent carb diet -diet counseling -outpt FU with PCP (5) GERD (gastroesophageal reflux disease) Qualifiers: Esophagitis presence: esophagitis presence not specified Qualified Code(s): K21.9 - Gastro-esophageal reflux disease without esophagitis Is this a current diagnosis for this admission?: Yes Plan: Currently without symptoms, can add PPI if needed (6) HTN (hypertension), benign Is this a current diagnosis for this admission?: Yes Plan: Home medications (7) HLD (hyperlipidemia) Is this a current diagnosis for this admission?: Yes Plan: Statin (8) Former smoker Is this a current diagnosis for this admission?: Yes Plan: Suspect underlying COPD, per patient never diagnosed with this Extensive smoking history, quit years ago (9) Anemia Qualifiers: Anemia type: unspecified type Qualified Code(s): D64.9 - Anemia, unspecified Is this a current diagnosis for this admission?: Yes Plan: Likely hemodilution as the patient received IVF throughout his admission. Hemoglobin has trended down from 11.8 to 9.2. Occult stool pending. No evidence of active bleeding. IV fluids have been discontinued. We will check anemia panel with a.m. lab work. - Time Time Spent with patient: 25-34 minutes Anticipated Discharge Disposition: Intermediate Facility Anticipated Discharge Timeframe: when bed available
[2020-03-28] MEDS: MELATONIN 5 MG TABLET PO SCH (21:40)
[2020-03-28] MEDS: ATORVASTATIN CALCIUM 20 MG TABLET PO SCH (21:41)
[2020-03-29] MEDS: PROPRANOLOL HCL 20 MG TABLET PO SCH ×2 (05:40→14:22)
[2020-03-29 06:35] LABS: ABSOLUTE RETICS # 0.063 10^6/uL (0.028-0.122); HEMATOCRIT 23.9 % (37.9-51.0); HEMOGLOBIN 8.2 g/dL (13.5-17.0); MEAN CORPUSCULAR HEMOGLOBIN 32.1 pg (27.0-33.4); MEAN CORPUSCULAR HGB CONC 34.5 g/dL (32.0-36.0); MEAN CORPUSCULAR VOLUME 93 fl (80-97); PLATELET COUNT 179 10^3/uL (150-450); RED BLOOD COUNT 2.57 10^6/uL (4.35-5.55); RED CELL DISTRIBUTION WIDTH 14.5 % (11.5-14.0); RETICULOCYTE COUNT (AUTO) 2.47 % (0.66-2.85); WHITE BLOOD COUNT 12.6 10^3/uL (4.0-10.5)
[2020-03-29 07:14] LABS: BLOOD UREA NITROGEN 45 mg/dL (7-20); CALCIUM 8.8 mg/dL (8.4-10.2); GLUCOSE 202 mg/dL (75-110); IRON(TIBC) 42.6 ug/dL (49-181); POTASSIUM 3.8 mmol/L (3.6-5.0)
[2020-03-29 07:19] LABS: CARBON DIOXIDE 31 mmol/L (22-30); CHLORIDE 102 mmol/L (98-107)
[2020-03-29] MEDS: INSULIN LISPRO 100 UNIT/ML 3 ML VIAL SUBCUT SCH ×4 (07:23→23:14)
[2020-03-29 07:27] LABS: ANION GAP 4 (5-19)
[2020-03-29] MEDS: VITAMIN B COMPLEX TABLET PO SCH (09:42)
[2020-03-29] MEDS: CHOLECALCIFEROL (D3) 1,000 UNIT (25 MCG) TABLET PO SCH (09:42)
[2020-03-29] MEDS: DOCUSATE SODIUM 100 MG CAPSULE PO SCH (09:42)
[2020-03-29] MEDS: GLIPIZIDE 5 MG TABLET PO SCH (09:42)
[2020-03-29] MEDS: ZINC SULFATE 220 MG CAPSULE PO SCH (09:43)
[2020-03-29] MEDS: MIDODRINE HCL 5 MG TABLET PO SCH ×3 (09:43→17:20)
[2020-03-29] MEDS: ASCORBIC ACID 500 MG TABLET PO SCH ×2 (09:43→17:20)
[2020-03-29] MEDS: PREDNISONE 20 MG TABLET PO SCH (09:43)
[2020-03-29] MEDS: ENOXAPARIN SODIUM INJ 80 MG/0.8 ML DISP.SYRIN SUBCUT SCH (09:43)
[2020-03-29] MEDS: PANTOPRAZOLE SODIUM 40 MG VIAL IV SCH ×2 (12:50→23:15)
[2020-03-29 17:00] LABS: HEMATOCRIT 23.2 % (37.9-51.0); MEAN CORPUSCULAR HGB CONC 34.3 g/dL (32.0-36.0); MEAN CORPUSCULAR VOLUME 93 fl (80-97); PLATELET COUNT 227 10^3/uL (150-450); RED BLOOD COUNT 2.49 10^6/uL (4.35-5.55); RED CELL DISTRIBUTION WIDTH 14.7 % (11.5-14.0); WHITE BLOOD COUNT 16.2 10^3/uL (4.0-10.5)
[2020-03-29 17:12] LABS: INTERNATIONAL RATION (INR) 1.24; PARTIAL THROMBOPLASTIN TIME 38.3 SEC (23.5-35.8); PROTHROMBIN TIME 15.8 SEC (11.4-15.4)
--- NOTE | 2020-03-29 17:16 | RADIOLOGY REPORT (SQ) ---
EXAM DESCRIPTION: CT HEAD WITHOUT IMAGES COMPLETED DATE/TIME: 03/29/2020 4:57 pm REASON FOR STUDY: slurred speech/ ams COMPARISON: 03/25/2020 TECHNIQUE: Axial images acquired through the brain without intravenous contrast. Images reviewed wi th bone, brain and subdural windows. Additional sagittal and coronal reconstructions were generated. Images stored on PACS. All CT scanners at this facility use dose modulation, iterative reconstruction, and/or weight based d osing when appropriate to reduce radiation dose to as low as reasonably achievable (ALARA). [facility]: Dose Right [facility]: CareDose [facility]: Dose Right [facility]: Teradose 4D [facility]: [place] RADIATION DOSE: CT Rad equipment meets quality standard of care and radiation dose reduction techniq ues were employed. CTDIvol: 53.2 mGy. DLP: 964 mGy-cm. mGy. LIMITATIONS: None. FINDINGS: VENTRICLES: Prominent ventricles secondary to involutional atrophy. CEREBRUM: Cortical atrophy. No masses. No hemorrhage. No midline shift. No evidence for acute inf arction. Areas of low density in the white matter most likely chronic small vessel ischemic changes. CEREBELLUM: No masses. No hemorrhage. No alteration of density. No evidence for acute infarction. EXTRAAXIAL SPACES: No fluid collections. No masses. ORBITS AND GLOBE: No intra- or extraconal masses. Normal contour of globe without masses. CALVARIUM: No fracture. PARANASAL SINUSES: No fluid or mucosal thickening. SOFT TISSUES: No mass or hematoma. OTHER: No other significant finding. IMPRESSION: MICROVASCULAR ISCHEMIA AND GENERALIZED ATROPHY. NO ACUTE IMAGING FINDINGS IN THE BRAIN EVIDENCE OF ACUTE STROKE: NO. COMMENT: Quality ID # [id number]: Final reports with documentation of one or more dose reduction techniques (e.g., Automated exposure control, adjustment of the mA and/or kV according to patient size, use of iterative reconstruction technique) TECHNICAL DOCUMENTATION: JOB ID: [id number] 2010 [employer]- All Rights Reserved Reading location - IP/workstation name: [email or web address]
[2020-03-29 17:21] LABS: ABSOLUTE LYMPHOCYTES# (MANUAL) 1.6 10^3/uL (0.5-4.7); ABSOLUTE MONOCYTES # (MANUAL) 0.2 10^3/uL (0.1-1.4); BAND NEUTROPHILS % (MANUAL) 1 % (3-5); BASOPHILS % (MANUAL) 0 % (0-2); EOSINOPHILS % (MANUAL) 0 % (0-6); LYMPHOCYTES % (MANUAL) 10 % (13-45); MONOCYTES % (MANUAL) 1 % (3-13); SEGMENTED NEUTROPHILS % (MAN) 88 % (42-78); TOTAL CELLS COUNTED 100
[2020-03-29 17:22] LABS: ANISOCYTOSIS SLIGHT; PLATELET COMMENT ADEQUATE; POLYCHROMASIA SLIGHT
--- NOTE | 2020-03-29 17:26 | RADIOLOGY REPORT (SQ) ---
EXAM DESCRIPTION: CT ABD/PELVIS NO ORAL OR IV IMAGES COMPLETED DATE/TIME: 03/29/2020 4:57 pm REASON FOR STUDY: Hematoma right flank/back, want to see extent COMPARISON: None. TECHNIQUE: CT scan of the abdomen and pelvis performed without intravenous or oral contrast. Images reviewed with lung, soft tissue, and bone windows. Reconstructed coronal and sagittal MPR images revi ewed. All images stored on PACS. All CT scanners at this facility use dose modulation, iterative reconstruction, and/or weight based d osing when appropriate to reduce radiation dose to as low as reasonably achievable (ALARA). [facility]: Dose Right [facility]: CareDose [facility]: Dose Right [facility]: Teradose 4D [facility]: [employer] RADIATION DOSE: CT Rad equipment meets quality standard of care and radiation dose reduction techniq ues were employed. CTDIvol: 20.4 mGy. DLP: 1071 mGy-cm.mGy. LIMITATIONS: None. FINDINGS: LOWER CHEST: Patchy ground-glass infiltrates in the lower lung isabel. Small right pleura l effusion. NON-CONTRASTED LIVER, SPLEEN, ADRENALS: Evaluation limited by lack of IV contrast. No identified sign ificant masses. PANCREAS: No masses. No peripancreatic inflammatory changes. GALLBLADDER: Multiple small gallstones. No wall thickening or pericholecystic fluid. RIGHT KIDNEY AND URETER: No suspicious masses. There is cortical thinning. No significant calcific ations. No hydronephrosis or hydroureter. LEFT KIDNEY AND URETER: No suspicious masses. There is cortical thinning. No significant calcifica tions. No hydronephrosis or hydroureter. AORTA AND RETROPERITONEUM: No aneurysm. No retroperitoneal masses or adenopathy. BOWEL AND PERITONEAL CAVITY: No obvious masses or inflammatory changes. No free fluid. APPENDIX: Not identified. PELVIS, BLADDER, AND ABDOMINAL WALL:Urinary bladder is normal. No pelvic mass or fluid collection. There is large right abdominal wall mass measuring 86 x 57 mm on image 40. There is a 2nd, smaller m ass more medial and posterior in location and slightly inferior to the larger. This measures 35 x 37 mm. BONES: No significant findings. OTHER: No other significant finding. IMPRESSION: 1. Right lateral abdominal wall masses (hematomas by history). The larger measures 86 x 57 mm. The smaller measures 35 x 37 mm. 2. Cholelithiasis. 3. Patchy ground-glass infiltrates in the lower lung isabel bilaterally. Suggestive of an atypical infectious/ inflammatory process. COMMENT: Quality ID # [id number]: Final reports with documentation of one or more dose reduction techniques (e.g., Automated exposure control, adjustment of the mA and/or kV according to patient size, use of iterative reconstruction technique) TECHNICAL DOCUMENTATION: JOB ID: [id number] 2010 [employer]- All Rights Reserved Reading location - IP/workstation name: [email or web address]
[2020-03-29] MEDS ORDERED: NORMAL SALINE 250 ML IV PRN ×2 (17:43)
[2020-03-29] MEDS: LIDOCAINE 5% (700 MG) TRANSDERMAL ADH..PATCH TP SCH (17:53)
--- NOTE | 2020-03-29 20:18 | PDOC PROGRESS REPORT ---
Subjective Date:: 03/29/20 Subjective:: Patient seen and evaluated on morning rounds. Patient provides me no complaints or concerns today. On my evaluation patient's vital signs were stable, stated multiple times that he just wanted to be left alone. There notable hematoma on his head and right. He reports tenderness to palpation of right flank hematoma. Patient denies any symptoms or concerns at this time. We discussed patient going to a rehabilitation center, patient stated that he wanted to go home. Again emphasized need for patient to go to acute rehab. He again asked that I leave him alone. Discussed need for transfusion with patient, he denies any signs of bleeding. Discussed with patient nurse, denies signs of bleeding, outside of noted hematoma. Will hold Lovenox at this time, initiate blood transfusion. Contacted by patient's nurse on afternoon rounds. Tells me that patient demonstrated some slurring of his speech. Upon my way of evaluation patient was communicating similar to as he was previously. Neurological exam was intact at that time. CT head without acute bleed. We will need to consider MRI for stroke rule out. I did go ahead and order a CT abdomen pelvis given his ext ensive right flank hematoma. Reason For Visit: COVID-19 PNEUMONIA ACUTE HYPOXEMIC RESPIRATORY Physical Exam Vital Signs: Temp Pulse Resp BP Pulse Ox 97.5 F 102 H 18 104/68 100 03/29/20 11:10 03/29/20 16:00 03/29/20 16:00 03/29/20 16:00 03/29/20 16:00 Intake & Output 03/28/20 03/29/20 03/30/20 06:59 06:59 06:59 Intake Total 240 120 Output Total 1050 700 Balance -810 -580 Weight 68.2 kg 68.5 kg 68.5 kg Additional comments: General appearance: PRESENT: no acute distress, cooperative, well-developed, well-nourished Head exam: PRESENT: atraumatic, normocephalic Eye exam: PRESENT: conjunctiva pink, EOMI, PERRLA. ABSENT: scleral icterus Mouth exam: PRESENT: moist, tongue midline Respiratory exam: PRESENT: clear to auscultation nikolas, symmetrical, unlabored, other - supplemental oxygen by NC. ABSENT: rales, rhonchi, wheezes Cardiovascular exam: PRESENT: RRR. ABSENT: diastolic murmur, rubs, systolic murmur Pulses: PRESENT: normal dorsalis pedis pul Vascular exam: PRESENT: normal capillary refill Extremities exam: PRESENT: full ROM. ABSENT: calf tenderness, clubbing, pedal edema Musculoskeletal exam: ABSENT: ambulatory - Moderate assist x2 for transfers Neurological exam: PRESENT: alert, awake, oriented to person, oriented to place, oriented to situation, CN II-XII grossly intact, other - Intermittently confused/disoriented. ABSENT: oriented to time, motor sensory deficit Psychiatric exam: PRESENT: appropriate affect, normal mood. ABSENT: homicidal ideation, suicidal ideation Skin exam: PRESENT: dry, warm. ABSENT: cyanosis, rash Results Laboratory Results: 03/29/20 16:28 03/29/20 06:22 03/29/20 03/29/20 03/29/20 06:22 06:22 09:39 WBC 12.6 H RBC 2.57 L Hgb 8.2 L Hct 23.9 L MCV 93 MCH 32.1 MCHC 34.5 RDW 14.5 H Plt Count 179 Seg Neutrophils % Retic Count (auto) 2.47 Sodium 136.8 L Potassium 3.8 Chloride 102 Carbon Dioxide 31 H Anion Gap 4 L BUN 45 H Creatinine 0.97 Est GFR ( Amer) > 60 Glucose 202 H Calcium 8.8 Iron 42.6 L TIBC 195 L % Saturation 22 Ferritin 199.00 Vitamin B12 831.0 Folate 12.40 Blood Type A POSITIVE Antibody Screen NEGATIVE 03/29/20 16:28 WBC 16.2 H RBC 2.49 L Hgb 8.0 L Hct 23.2 L MCV 93 MCH 32.0 MCHC 34.3 RDW 14.7 H Plt Count 227 Seg Neutrophils % Not Reportable Retic Count (auto) Sodium Potassium Chloride Carbon Dioxide Anion Gap BUN Creatinine Est GFR ( Amer) Glucose Calcium Iron TIBC % Saturation Ferritin Vitamin B12 Folate Blood Type Antibody Screen 03/21/20 16:25 Troponin I 0.017 Impressions: Chest X-Ray 03/21/20 15:43 IMPRESSION: Patchy bilateral infiltrates suggesting multifocal pneumonia. Abdomen/Pelvis CT 03/29/20 00:00 IMPRESSION: 1. Right lateral abdominal wall masses (hematomas by history). The larger measures 86 x 57 mm. The smaller measures 35 x 37 mm. 2. Cholelithiasis. 3. Patchy ground-glass infiltrates in the lower lung isabel bilaterally. Suggestive of an atypical infectious/ inflammatory process. Head CT 03/29/20 00:00 IMPRESSION: MICROVASCULAR ISCHEMIA AND GENERALIZED ATROPHY. NO ACUTE IMAGING FINDINGS IN THE BRAIN EVIDENCE OF ACUTE STROKE: NO. Assessment and Plan - Diagnosis (1) Pneumonia due to COVID-19 virus Is this a current diagnosis for this admission?: Yes Plan: Improved; now stable for discharge from a Covid standpoint. Symptoms/history consistent with covid-19 infection -Covid-19 positive: 03/17/20 -CXR showed: Patchy bilateral infiltrates ABG (on 3lpm via NC) is reassuring Supplemental oxygen as needed. Currently maintaining oxygen saturations on 2 L by nasal cannula. Standard of care vitamin supplements: zinc, ascorbic acid, vitamin d, melatonin As needed nebs as able Ivermectin x2 doses Completed 5 day course of Doxycycline Transition to prednisone; slow taper Full dose Lovenox; continue to check D-dimer periodically. If remains >1 at time of discharge, recommend DVT prophylactic dose Xarelto 10 mg daily. - Current literature does not show clear benefit from the use of remdesivir, plaquenil, and convalescent plasma (2) Acute hypoxemic respiratory failure Is this a current diagnosis for this admission?: Yes Plan: Due to COVID-19 pneumonia Suspect possible underlying COPD as well given extensive smoking history Nebulizer treatments Supplemental oxygen to maintain saturation of 90-94% (3) Altered mental status Qualifiers: Altered mental status type: unspecified Qualified Code(s): R41.82 - Altered mental status, unspecified Is this a current diagnosis for this admission?: Yes Plan: Contacted by nurse regarding a change in mental status, when I evaluated patient he was able to communicate in full sentences and neurological exam was intact. Ordered CT head which was negative. He has been receiving full dose Lovenox given history of Covid. I am holding in the afternoon dose given drop in hemoglobin and extensive hematoma. Previous notes were reviewed, patient with intermittent confusion. Redirectable. Likely delirium r/t acute illness and steroids in patient with underlying early dementia. Supportive care. Safety and fall precautions (4) T2DM (type 2 diabetes mellitus) Qualifiers: Diabetes mellitus senior living insulin use: with senior living use Diabetes mellitus complication status: with hyperglycemia Qualified Code(s): E11.65 - Type 2 diabetes mellitus with hyperglycemia; Z79.4 - terminal supervisor (current) use of insulin Is this a current diagnosis for this admission?: Yes Plan: T2DM; A1c 7.8%. -accucheks, sliding scale insulin -Consistent carb diet -diet counseling -outpt FU with PCP (5) GERD (gastroesophageal reflux disease) Qualifiers: Esophagitis presence: esophagitis presence not specified Qualified Code(s): K21.9 - Gastro-esophageal reflux disease without esophagitis Is this a current diagnosis for this admission?: Yes Plan: Currently without symptoms. I did initiate PPI today given recently noted drop in hemoglobin. (6) HTN (hypertension), benign Is this a current diagnosis for this admission?: Yes Plan: Blood pressure stable, continue home medications. (7) Former smoker Is this a current diagnosis for this admission?: Yes Plan: Suspect underlying COPD, per patient never diagnosed with this Extensive smoking history, quit years ago (8) Anemia Qualifiers: Anemia type: unspecified type Qualified Code(s): D64.9 - Anemia, unspecified Is this a current diagnosis for this admission?: Yes Plan: Initially thought to be secondary to hemodilution as patient has received IVF throughout his admission. Hemoglobin has trended down from 11.8 to 9.2; 8.2 without signs of bleeding and IVF have since been discontinued. Occult stool pending. No evidence of active bleeding. Anemia panel obtained, indicative of acute bleed. Hematoma right flank, will obtain CT abdomen and pelvis to look for source of bleeding. Transfuse 1 unit packed red blood cells with repeat hemoglobin to follow. Additionally ordered PT/INR. (9) Hematoma Is this a current diagnosis for this admission?: Yes Plan: Hematoma in right flank. CT abdomen and pelvis notable for right lateral abdominal wall hematoma measuring 86 x 57 mm. Cholelithiasis. No other acute findings. Holding Lovenox given hgb and hematoma. - Time Time Spent with patient: 35 or more minutes Medications reviewed and adjusted accordingly: Yes Anticipated Discharge Disposition: Care Home Facility Anticipated Discharge Timeframe: tbd
--- NOTE | 2020-03-29 20:56 | RADIOLOGY REPORT (SQ) ---
EXAM DESCRIPTION: CT HEAD WITHOUT IV CONTRAST COMPLETED DATE/TME: 03/29/2020 20:20 CLINICAL HISTORY: 85 years, Male, Altered mental status COMPARISON: CT today at 4:46 PM TECHNIQUE: Axial images without IV contrast. Sagittal coronal reconstruction. Images stored on PACS. All CT scanners at this facility use dose modulation, iterative reconstruction, and/or weight based dosing when appropriate to reduce radiation dose to as low as reasonably achievable (ALARA). FINDINGS: Prominent ventriculomegaly. Transverse diameter of the third ventricle is 13 mm. Measurement was 11 mm in 2016. Prominent sylvian fissures. Less prominent atrophy in the upper slices of the brain. No acute intra-axial or extra-axial abnormality. Paranasal sinuses, mastoid air cells and bony calvarium unremarkable. IMPRESSION: 1. No suspicious acute intracranial abnormalities. 2. Significant ventriculomegaly and mildly less prominent cortical sulci. Differential diagnosis between advanced central atrophy versus NPH versus combination of the two possibilities. Suggest clinical correlation.
--- NOTE | 2020-03-29 21:59 | EKG REPORT ---
SEVERITY:- OTHERWISE NORMAL ECG - SINUS RHYTHM LEFT AXIS DEVIATION : Confirmed by: Jaron Anna MD 29-Mar-2020 21:58:09
--- NOTE | 2020-03-29 22:07 | Progress Note ---
Provider Note Provider Note: Rapid response was called to the patient because he became less responsive and he was unable to speak. He had a CT scan of the head earlier this afternoon which did not show any acute abnormality, only chronic changes. When I saw the patient he appears to be without any respiratory distress. He seemed to be somewhat uncomfortable on either hand. His systolic blood pressure was in the 85-90 range. His heart rate was regular in the 90 range. His oxygen saturation was 100% with supplemental oxygen. He had no fever. His pupils were equal and reactive to light. He had a conjugate deviation to the left. His eyes were open. He moved all 4 extremities spontaneously but he did not raise his arms or legs from the bed. He withdraw for painful stimuli. He was moaning and he was able to say a few words without any ability to answer any question or speak a full sentence. He did not follow any command and he did not answer any question. His eyes remained open. He obviously noticed his surroundings. Later on he was able to say a full review words as help and pain. His lungs were clear to auscultation, no wheezing. Heart with regular rate and rhythm no murmur or gallop. Abdomen was soft. The right lower abdominal area was extremely tender. Right groin area was tender as well. EKG showed sinus rhythm, unchanged compared to previous EKG. Repeat CT scan of the head did not show any acute abnormality. Impression #1 acute encephalopathy, expressive aphasia, conjugate deviation to the left. Clinical picture is most suspicious for stroke. The patient is not a candidate for thrombolytic treatment, he was fully anticoagulated and developed bleeding requiring blood transfusion. I would not give any aspirin at this point either. 2. Anemia secondary to bleeding to the abdominal wall which was confirmed with CT scan earlier today. Patient is receiving blood transfusion 3 .type 2 diabetes. Blood sugar mildly elevated, 267. 4. Coronavirus pneumonia. Oxygenation stable with supplemental oxygen. 5. Borderline hypotension secondary to blood loss and dehydration. Blood transfusion and intravenous fluids. Plan 1. Patient was transferred to intermediate care unit 2. I am going to keep him n.p.o. for now, speech therapy evaluation in the morning. 3 MRI of the brain in the morning 4. Because of unpredictable oral intake I discontinued oral antidiabetic agent. Continue to monitor blood sugar, continue with correction dose insulin for now. 5. I discontinued propranolol because of the low blood pressure 6. I converted him to intravenous steroid from oral prednisone because he may not be able to swallow 7. Continue intravenous fluid 8. Anticoagulation was discontinued earlier 9. I contacted the patient's son who is next of kin. I updated him about the patient's condition. He would like to be called after MRI result is available. He is aware about the worsening clinical situation. At present the patient remains full code but he is going to discuss CODE STATUS with the rest of the family.
[2020-03-29] MEDS: MORPHINE SULFATE 10 MG/ML INJ IV PRN (23:15)
[2020-03-29] MEDS: ATORVASTATIN CALCIUM 20 MG TABLET PO SCH (23:15)
[2020-03-29] MEDS: POTASSI CL 20 MEQ/NS 1L 1,000 ML IV PRN (23:16)
[2020-03-30] MEDS: IPRATROPIUM/ALBUTEROL 0.5-2.5 MG/3 ML AMPUL NEB PRN (02:14)
[2020-03-30 03:22] LABS: HEMATOCRIT 20.3 % (37.9-51.0); MEAN CORPUSCULAR HEMOGLOBIN 32.1 pg (27.0-33.4); MEAN CORPUSCULAR HGB CONC 33.5 g/dL (32.0-36.0); MEAN CORPUSCULAR VOLUME 96 fl (80-97); PLATELET COUNT 162 10^3/uL (150-450); RED BLOOD COUNT 2.12 10^6/uL (4.35-5.55); RED CELL DISTRIBUTION WIDTH 14.4 % (11.5-14.0); WHITE BLOOD COUNT 20.9 10^3/uL (4.0-10.5)
[2020-03-30 03:34] LABS: BLOOD UREA NITROGEN 52 mg/dL (7-20); CALCIUM 8.2 mg/dL (8.4-10.2); CHLORIDE 109 mmol/L (98-107); GLUCOSE 97 mg/dL (75-110); POTASSIUM 4.5 mmol/L (3.6-5.0)
[2020-03-30 03:37] LABS: ABSOLUTE LYMPHOCYTES# (MANUAL) 1.9 10^3/uL (0.5-4.7); ABSOLUTE MONOCYTES # (MANUAL) 1.3 10^3/uL (0.1-1.4); BAND NEUTROPHILS % (MANUAL) 3 % (3-5); BASOPHILS % (MANUAL) 0 % (0-2); EOSINOPHILS % (MANUAL) 0 % (0-6); LYMPHOCYTES % (MANUAL) 9 % (13-45); MONOCYTES % (MANUAL) 6 % (3-13); SEGMENTED NEUTROPHILS % (MAN) 82 % (42-78); TOTAL CELLS COUNTED 100
[2020-03-30 03:38] LABS: ANISOCYTOSIS SLIGHT; PLATELET COMMENT ADEQUATE; TOXIC GRANULATION SLIGHT; TOXIC VACUOLATION PRESENT
[2020-03-30 03:42] LABS: ANION GAP 14 (5-19)
[2020-03-30 03:46] LABS: CARBON DIOXIDE 16 mmol/L (22-30)
[2020-03-30 03:58] LABS: HEMOGLOBIN 6.8 g/dL (13.5-17.0)
[2020-03-30 04:11] LABS: CREATINE KINASE MB 0.92 ng/mL (<4.55)
[2020-03-30 04:14] LABS: TROPONIN I < 0.012 ng/mL
--- NOTE | 2020-03-30 07:30 | Progress Note ---
Provider Note Provider Note: Later on the patient developed another hypotensive episode. After blood transfusion which was given rapidly another liter of saline bolus his blood pressure stabilized. Repeat hemoglobin was 6.7. Additional unit of packed red blood cell transfusion was ordered.
[2020-03-30] MEDS: POTASSI CL 20 MEQ/NS 1L 1,000 ML IV PRN (08:23)
[2020-03-30] MEDS: INSULIN LISPRO 100 UNIT/ML 3 ML VIAL SUBCUT SCH ×5 (08:57→23:00)
[2020-03-30] MEDS: VITAMIN B COMPLEX TABLET PO SCH (09:51)
[2020-03-30] MEDS: MIDODRINE HCL 5 MG TABLET PO SCH ×2 (09:51→13:04)
[2020-03-30] MEDS: DOCUSATE SODIUM 100 MG CAPSULE PO SCH (09:51)
[2020-03-30] MEDS: ASCORBIC ACID 500 MG TABLET PO SCH ×2 (09:52→17:12)
[2020-03-30] MEDS: CHOLECALCIFEROL (D3) 1,000 UNIT (25 MCG) TABLET PO SCH (09:52)
[2020-03-30] MEDS: ZINC SULFATE 220 MG CAPSULE PO SCH (09:52)
[2020-03-30] MEDS ORDERED: DEXAMETHASONE SOD PHOS INJ 10 MG/1 ML VIAL IV SCH (10:00)
[2020-03-30] MEDS ORDERED: EPINEPHRINE INJ 1 MG/10 ML DISP.SYRIN ONE (10:04)
[2020-03-30] MEDS: PANTOPRAZOLE SODIUM 40 MG VIAL IV SCH ×2 (10:11→21:25)
--- NOTE | 2020-03-30 10:30 | PDOC PROGRESS REPORT ---
Subjective Date:: 03/30/20 Subjective:: 10:00 - Patient seen and evaluated on morning rounds. He is resting in bed. He does open his eyes when I enter the room and say his name but does not respond to questions. He does seem to track my movements. Rapid response called last night secondary to acute change in mental status, likely secondary to stroke. Repeat CT head without acute findings. Night doctor has ordered a MRI of the brain, this is pending. Current presentation persistent with stroke. He is not a candidate for thrombolytic therapy, was on full anticoagulation at the time of onset of symptoms since holding given drop in hemoglobin. He is currently n.p.o. with scheduled speech evaluation. Last night patient received 2 units packed red blood cells total (Hgb trended down rather aggressively, 8 then [address]). [address] abdomen notable for hematoma; no other acute findings. Did hold anticoagulation yesterday given bleed. Just finished receiving second unit of PRBC, will continue monitor hemoglobin. Additionally they experience several episodes of hypotension with blood pressure 70/40s, this was treated with IVF and PRBC; since has remained stable. Patient's son was contacted by night doctor regarding patient CODE STATUS, plan to call him in follow-up after MRI to discuss results and CODE STATUS. On exam this morning patient with wet lung sounds, likely secondary to IVF and red blood cells received. Will initiate IV Lasix BID. His oxygen sat is 100% on 2 L nasal cannula. Will obtain a chest x-ray. At this time his vital signs are stable, with blood pressure 140s/90s after transfusion and IVF. Review of systems limited given patient's altered mental status. 12:00 - contacted by nurse via phone regarding blood pressure low 80s/40s; will give bolus IVF. I did obtain a chest x-ray given right lung sounds on physical exam. Notable for worsening pneumonia, probable small developing right pleural effusion no pneumothorax noted. Likely secondary to IVF and blood product. Given patient's hypotension, will continue to utilize IVF for stabilization purposes. He did receive single dose of the Lasix. Repeat hemoglobin pending. Consent received from patient sent for MRI. MRI pending. Will update patient's son discuss CODE STATUS following MRI with results. 17:00: MRI reviewed, notable for acute stroke left MCA. Follow-up hemoglobin 9.1, continue to monitor for stability. We will continue to hold anticoagulation at this time given recent noted bleeding and drop in hemoglobin. And chest x- ray noted increase in consolidation. Will initiate meropenem to cover for hospital acquired pneumonia (given that his WBC has been climbing steadily). Discontinue the Decadron and initiated Solu-Medrol 40 mg every 12. I will increase his midodrine to 10 mg 3 times daily for low blood pressure. I will consider a albumin as well. Patient is too sick to partake in PT/OT or speech eval at this time 19:00: Cognitive conversation held between patient son Minh Santoyo and myself. Patient CODE STATUS changed to DNR. See goals of care conversation. Updated patient's son on current status and changes in patient treatment recommendations. He is understanding and agreeable to this means of treatment. Addressed and answered all of his questions to the best of my ability. I will continue to update him accordingly. Reason For Visit: COVID-19 PNEUMONIA ACUTE HYPOXEMIC RESPIRATORY Physical Exam Vital Signs: Temp Pulse Resp BP Pulse Ox 94.4 F L 83 18 112/89 H 96 03/30/20 09:04 03/30/20 09:04 03/30/20 09:04 03/30/20 09:04 03/30/20 09:04 Intake & Output 03/29/20 03/30/20 03/31/20 06:59 06:59 06:59 Intake Total 812 455 2236 Output Total 700 Balance -657 521 7048 Weight 68.5 kg 68.5 kg General appearance: PRESENT: other - Elderly male resting in bed. Appears to be somewhat uncomfortable when woken. Eye exam: PRESENT: PERRLA, other - Notable conjugate deviation to the left. Does open his eyes and responds to my voice. Respiratory exam: PRESENT: clear to auscultation nikolas, rhonchi - Notable rhonchi in all lung isabel.. ABSENT: wheezes Cardiovascular exam: PRESENT: RRR, other - Sinus rhythm on telemetry.. ABSENT: diastolic murmur, gallop, systolic murmur GI/Abdominal exam: PRESENT: soft, tenderness - He tenses in pain when right lower quadrant is palpated, additionally right flank. Musculoskeletal exam: PRESENT: other - Moves all 4 extremities spontaneously but does not follow commands. Does not to raise arms or legs from the bed. Neurological exam: PRESENT: altered, awake, other - He withdraws to painful stimuli, unable to answer questions. Eyes open and close spontaneously. He does notice his surroundings. Skin exam: PRESENT: other - Skin color on extremities is light with grayish tone, skin is cool to the touch, noted consistent hematoma right flank this is unchanged in size from previous. Again noted hematoma left scalp, unchanged in size from previous. Results Laboratory Results: 03/30/20 03:11 03/30/20 03:11 03/29/20 03/29/20 03/30/20 09:39 16:28 03:11 WBC 16.2 H RBC 2.49 L Hgb 8.0 L Hct 23.2 L MCV 93 MCH 32.0 MCHC 34.3 RDW 14.7 H Plt Count 227 Seg Neutrophils % Not Reportable Sodium 138.5 Potassium 4.5 Chloride 109 H Carbon Dioxide 16 L D Anion Gap 14 BUN 52 H Creatinine 1.65 H Est GFR ( Amer) 48 L Glucose 97 Calcium 8.2 L Blood Type A POSITIVE Antibody Screen NEGATIVE 03/30/20 03:11 WBC 20.9 H RBC 2.12 L Hgb 6.8 L Hct 20.3 L MCV 96 MCH 32.1 MCHC 33.5 RDW 14.4 H Plt Count 162 Seg Neutrophils % Not Reportable Sodium Potassium Chloride Carbon Dioxide Anion Gap BUN Creatinine Est GFR ( Amer) Glucose Calcium Blood Type Antibody Screen 03/21/20 03/30/20 03/30/20 16:25 03:27 03:27 Creatine Kinase 49 L CK-MB (CK-2) 0.92 Troponin I 0.017 < 0.012 Impressions: Chest X-Ray 03/21/20 15:43 IMPRESSION: Patchy bilateral infiltrates suggesting multifocal pneumonia. Abdomen/Pelvis CT 03/29/20 00:00 IMPRESSION: 1. Right lateral abdominal wall masses (hematomas by history). The larger measures 86 x 57 mm. The smaller measures 35 x 37 mm. 2. Cholelithiasis. 3. Patchy ground-glass infiltrates in the lower lung isabel bilaterally. Suggestive of an atypical infectious/ inflammatory process. Head CT 03/29/20 00:00 IMPRESSION: 1. No suspicious acute intracranial abnormalities. 2. Significant ventriculomegaly and mildly less prominent cortical sulci. Differential diagnosis between advanced central atrophy versus NPH versus combination of the two possibilities. Suggest clinical correlation. Assessment and Plan - Diagnosis (1) Acute CVA (cerebrovascular accident) Is this a current diagnosis for this admission?: Yes Plan: Acute change in mental status noted yesterday. CT head x2 no acute findings. MRI head notable for acute ischemic injury in the left temporal lobe. Subacute ischemic injury of the left occipital lobe. Acute stroke evidence of left MCA. Given recent drop in hemoglobin and noted numerous hematomas we are currently holding anticoagulation of note patient was on anticoagulation for stroke. Patient is too sick to partake in PT OT or speech eval at this time. Discontinued all BP medications. Not currently tolerating p.o. medications given AMS, will discontinue and transition to IV medications. (2) Hypotension Is this a current diagnosis for this admission?: Yes Plan: Blood pressure actually noted to drop in 70s/40s overnight, this has responded to blood and IVF. Again dropped into 80/50s today, responded to IVF. Will hold all hypertensive medications at this time. Increase Midodrine from 5mg to 10mg TID for blood pressure support. Suspect BP will improve with blood product. Cnt to monitor closely. (3) Anemia Qualifiers: Anemia type: unspecified type Qualified Code(s): D64.9 - Anemia, unspecified Is this a current diagnosis for this admission?: Yes Plan: This very well may be effecting his BP at this time. Was transfused 2 units packed red blood cells last night. Hemoglobin 9.1 today. Holding anticoagulation at this time. Initially thought to be secondary to hemodilution as patient has received IVF throughout his admission. Occult stool pending. No evidence of active bleeding. Anemia panel indicative of acute bleed CT abdomen pelvis notable for notably sized hematoma (4) Pneumonia due to COVID-19 virus Is this a current diagnosis for this admission?: Yes Plan: Chest x-ray notable for increased consolidation, unable to tell if this is secondary to worsening Covid versus hospital-acquired pneumonia. -Initiate meropenem therapy at this time to cover for HAP. -Discontinue Decadron, initiate Solu-Medrol 40 mg every 12. Covid-19 positive: 03/17/20 Supplemental oxygen as needed. Currently maintaining oxygen saturations on 2 L by nasal cannula. Standard of care vitamin supplements: zinc, ascorbic acid, vitamin d, melatonin As needed nebs as able Ivermectin x2 doses completed. Completed 5 day course of Doxycycline Was on p.o. prednisone, transitioned to IV given inability to swallow since CVA. Holding Lovenox given acute drop in hgb; though notable that his d-dimer was c onsistently elevated. (5) Acute hypoxemic respiratory failure Is this a current diagnosis for this admission?: Yes Plan: Due to COVID-19 pneumonia Potentially worsened secondary to fluids and blood products (noted right small pleural effusion on CXR) - Fluids and blood products necessary to maintain appropriate BP. Supplemental oxygen to maintain saturation of 90-94% (6) Altered mental status Qualifiers: Altered mental status type: unspecified Qualified Code(s): R41.82 - Altered mental status, unspecified Is this a current diagnosis for this admission?: Yes Plan: Secondary to acute CVA, treatment as above. (7) T2DM (type 2 diabetes mellitus) Qualifiers: Diabetes mellitus custodial insulin use: with custodial use Diabetes mellitus complication status: with hyperglycemia Qualified Code(s): E11.65 - Type 2 diabetes mellitus with hyperglycemia; Z79.4 - termite treater helper (current) use of insulin Is this a current diagnosis for this admission?: Yes Plan: T2DM; A1c 7.8%. -accucheks, sliding scale insulin -Consistent carb diet -diet counseling -outpt FU with PCP (8) GERD (gastroesophageal reflux disease) Qualifiers: Esophagitis presence: esophagitis presence not specified Qualified Code(s): K21.9 - Gastro-esophageal reflux disease without esophagitis Is this a current diagnosis for this admission?: Yes Plan: Currently without symptoms. I did initiate PPI today given recently noted drop in hemoglobin. (9) HTN (hypertension), benign Is this a current diagnosis for this admission?: Yes Plan: Hold HTN medications as above. Monitor. (10) Hematoma Is this a current diagnosis for this admission?: Yes Plan: Hematoma in right flank. CT abdomen and pelvis notable for right lateral abdominal wall hematoma measuring 86 x 57 mm. Cholelithiasis. No other acute findings. Holding Lovenox given hgb and hematoma. (11) Former smoker Is this a current diagnosis for this admission?: Yes - Time Time Spent with patient: 35 or more minutes Medications reviewed and adjusted accordingly: Yes Anticipated Discharge Disposition: tbd Anticipated Discharge Timeframe: tbd
[2020-03-30] MEDS ORDERED: FUROSEMIDE INJ/PF 40 MG/4 ML SDV IV SCH (11:00)
--- NOTE | 2020-03-30 11:28 | RADIOLOGY REPORT (SQ) ---
EXAM DESCRIPTION: CHEST SINGLE VIEW IMAGES COMPLETED DATE/TIME: 03/30/2020 9:40 am REASON FOR STUDY: Abnormal breath sounds COMPARISON: 03/21/2020 EXAM PARAMETERS: NUMBER OF VIEWS: One view. TECHNIQUE: Single frontal radiographic view of the chest acquired. RADIATION DOSE: NA LIMITATIONS: None. FINDINGS: LUNGS AND PLEURA: Worsening consolidation at the left lung base and patchy areas of consol idation in the right upper and lower lung. Probable developing small left pleural effusion. No pneu mothorax. MEDIASTINUM AND HILAR STRUCTURES: No masses. Contour normal. HEART AND VASCULAR STRUCTURES: Moderate cardiomegaly. No pulmonary vascular congestion. BONES: No acute findings. HARDWARE: None in the chest. OTHER: No other significant finding. IMPRESSION: Worsening multifocal pneumonia. Probable developing small left effusion. TECHNICAL DOCUMENTATION: JOB ID: [id number] 2010 [employer]- All Rights Reserved Reading location - IP/workstation name: [email or web address]
[2020-03-30] MEDS ORDERED: NORMAL SALINE 1000 ML 1,000 ML IV ONE (12:30)
[2020-03-30] MEDS: MORPHINE SULFATE 10 MG/ML INJ IV PRN (15:22)
[2020-03-30] MEDS: LIDOCAINE 5% (700 MG) TRANSDERMAL ADH..PATCH TP SCH (15:31)
--- NOTE | 2020-03-30 15:56 | RADIOLOGY REPORT (SQ) ---
EXAM DESCRIPTION: MRI HEAD WITHOUT IMAGES COMPLETED DATE/TIME: 03/30/2020 3:34 pm REASON FOR STUDY: expressive aphasia, probable cva COMPARISON: 03/29/2020 and 12/07/2015 TECHNIQUE: Multiplanar imaging includes non-contrasted T1, T2, FLAIR, and diffusion with ADC map seq uences. Images stored on PACS. LIMITATIONS: None. FINDINGS: ANATOMY: No anomalies. Normal vascular flow voids. Pituitary fossa normal. CSF SPACES: Atrophy induced prominence of ventricles and CSF spaces. CEREBRUM: High signal intensity lesions scattered throughout the white matter on FLAIR imaging with d istribution suggesting micro-vascular ischemic changes. No evidence of hemorrhage, mass, or extraaxi al fluid collection. POSTERIOR FOSSA: No signal alteration. No hemorrhage. No edema, masses or mass effect. Internal taryn tory canals, cerebello-pontine angles, mastoids normal. DIFFUSION IMAGING: Restricted diffusion is seen of the left occipital lobe, noting correlate to of T2 prolongation, consistent with subacute ischemic injury. Additional restricted diffusion is seen of the left temporal lobe, without correlates of T2 prolongation, consistent with acute ischemic injury. ORBITS: No masses. Globes normal. PARANASAL SINUSES: No fluid levels. Mucosa normal. OTHER: No other significant finding. IMPRESSION: Acute ischemic injury of the left temporal lobe. Subacute ischemic injury of the left o ccipital lobe. Background of chronic microvascular and age-related involutional change. EVIDENCE OF ACUTE STROKE: YES. LEFT MCA. TECHNICAL DOCUMENTATION: JOB ID: [id number] 2010 [employer]- All Rights Reserved Reading location - IP/workstation name: [email or web address]
[2020-03-30 17:07] LABS: HEMATOCRIT 27.1 % (37.9-51.0); MEAN CORPUSCULAR HEMOGLOBIN 30.1 pg (27.0-33.4); MEAN CORPUSCULAR HGB CONC 33.7 g/dL (32.0-36.0); PLATELET COUNT 134 10^3/uL (150-450); RED BLOOD COUNT 3.04 10^6/uL (4.35-5.55)
[2020-03-30 17:08] LABS: HEMOGLOBIN 9.1 g/dL (13.5-17.0)
[2020-03-30 17:09] LABS: MEAN CORPUSCULAR VOLUME 89 fl (80-97)
[2020-03-30 17:14] LABS: ANION GAP 9 (5-19); BLOOD UREA NITROGEN 56 mg/dL (7-20); CALCIUM 7.2 mg/dL (8.4-10.2); CARBON DIOXIDE 16 mmol/L (22-30); CHLORIDE 115 mmol/L (98-107); GLUCOSE 172 mg/dL (75-110); POTASSIUM 5.2 mmol/L (3.6-5.0)
--- NOTE | 2020-03-30 17:54 | ADVANCED CARE ---
- Diagnosis (1) Acute CVA (cerebrovascular accident) Diagnosis Current: Yes (2) Hypotension Diagnosis Current: Yes (3) Anemia Diagnosis Current: Yes (4) Pneumonia due to COVID-19 virus Diagnosis Current: Yes (5) Acute hypoxemic respiratory failure Diagnosis Current: Yes (6) Altered mental status Diagnosis Current: Yes Attendance: Conversation was held with patient's son Minh Santoyo , who acts as patient's medical power of disability attorney, and myself on the phone. Patient unable to participate in conversation given altered mental status Resuscitation Status: Do Not Resuscitate Discussion: Conversation held on the phone. Patient's son from reports me that he found documentation from patient which states that patient would like to be a DNR in the event about he would not be able to return to his full baseline following resuscitation. I discussed current status of patient with the patient's son in detail. Patient son tells me that he has discussed this with his entire family and they are in agreement that his father would not want to be resuscitated in this instance. Patient's CODE STATUS has been changed to a DNR at this time. Care Planning Goals: Goal conversation was to establish patient's wishes and went back he will need to be resuscitated. Document(s) Completed: DNR Time Spent: 45
[2020-03-30] MEDS ORDERED: MIDODRINE HCL 5 MG TABLET PO SCH (18:00)
[2020-03-30] MEDS: NORMAL SALINE 1000 ML 1,000 ML IV PRN (18:38)
[2020-03-30] MEDS: ATORVASTATIN CALCIUM 20 MG TABLET PO SCH (21:17)
[2020-03-30] MEDS ORDERED: METHYLPREDNISOLONE INJ 40 MG/1 ML SDV IV SCH (22:00)
[2020-03-30] MEDS ORDERED: MEROPENEM 1 GM in NORMAL SALINE 50 ML IV SCH ×4 (22:00)
[2020-03-31] MEDS ORDERED: INSULIN LISPRO 100 UNIT/ML 3 ML VIAL SUBCUT SCH
[2020-03-31 02:06] VITALS: BP 103/68
[2020-03-31] MEDS: MORPHINE SULFATE 10 MG/ML INJ IV PRN (02:15)
[2020-03-31] MEDS: NORMAL SALINE 1000 ML 1,000 ML IV PRN (02:16)
[2020-03-31] MEDS: IPRATROPIUM/ALBUTEROL 0.5-2.5 MG/3 ML AMPUL NEB PRN (02:23)
--- NOTE | 2020-03-31 03:33 | Progress Note ---
Provider Note Provider Note: The patient developed bradycardia and became apneic. Then he developed asystole. It happened within a few minutes. There was no sign of any suffering. He was pronounced at 3:01 AM on March 31, 2020. I talked to the patient's daughter over the phone who is going to talk to the rest of the family.
--- NOTE | 2020-03-31 14:07 | Death Summary ---
Summary Date : 03/31/20 Time of :: 03:01 Autopsy: No Resuscitation Status: Do Not Resuscitate Primary Care Provider: DO Brenda BENÍTEZ Final Diagnosis (1) Acute CVA (cerebrovascular accident) Is this a current diagnosis for this admission?: Yes (2) Hypotension Is this a current diagnosis for this admission?: Yes (3) Anemia Is this a current diagnosis for this admission?: Yes (4) Pneumonia due to COVID-19 virus Is this a current diagnosis for this admission?: Yes (5) Acute hypoxemic respiratory failure Is this a current diagnosis for this admission?: Yes (6) Altered mental status Is this a current diagnosis for this admission?: Yes (7) T2DM (type 2 diabetes mellitus) Is this a current diagnosis for this admission?: Yes (8) GERD (gastroesophageal reflux disease) Is this a current diagnosis for this admission?: Yes (9) HTN (hypertension), benign Is this a current diagnosis for this admission?: Yes (10) Hematoma Is this a current diagnosis for this admission?: Yes (11) Former smoker Is this a current diagnosis for this admission?: Yes Hospital Course:: Patient was initially admitted to the hospital on 03/21/2020 for 5-year history of progressive shortness of breath/bermudez/cough. To be Covid positive with imaging notable for pneumonia. Received full course treatment for Covid pneumonia including steroids, anticoagulation, vitamin supplementation, and supplemental oxygen. Patient with gradual improvement in symptoms and was planning to discharge to nursing facility on 03/29. On 03/29 patient noted back pain and a rather substantial Khang right flank noted on exam. Additionally his hemoglobin gradually been decreasing over course of hospitalization without active signs of bleeding, CT abdomen and pelvis notable for right lateral abdominal wall hematoma measuring 86 x 57 mm. Given drop in hemoglobin and noted substantial hematoma anticoagulation was sent to be held in the evening. Prior to holding full dose anticoagulation patient developed slurred speech and acute change in mental status. CT head was obtained this was negative. Patient with gradual return of speech and neurologically intact. Later a rapid response called on patient as patient was found to be unresponsive by his nurse. He was found to be hypotensive with conjugate deviation to the left. Repeat head CT negative. MRI obtained on 03/30 notable ischemic stroke left MCA. Patient received 2 units of blood given hemoglobin 6. Given that he had stroke while on oral anticoagulation and notable hematoma anticoagulation was held. Patient remained minimally responsive following stroke. Blood pressure noted to drop in the 80s this was responsive to fluids, increased Midodrine dose. Chest x-ray notable for increasing consolidation. Given his length of hospital stay initiated HAP coverage with meropenem. Additionally implemented IV steroid therapy. See ACP note with patient's son regarding patient's CODE STATUS. Patient made DNR on 03/30. 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 States events happened within a few minutes, without signs of suffering. He was pronounced at 3:01 AM on March 31, 2020. Acute CVA (cerebrovascular accident) Acute change in mental status noted on 03/29. CT head x2 no acute findings 03/29. MRI head notable for acute ischemic injury in the left temporal lobe. Subacute ischemic injury of the left occipital lobe. Acute stroke evidence of left MCA. Given recent drop in hemoglobin and noted numerous hematomas we are currently holding anticoagulation of note patient was on anticoagulation for stroke. Patient is too sick to partake in PT OT or speech eval at this time. Discontinued all BP medications. Not currently tolerating p.o. medications given AMS, will discontinue and transition to IV medications. Hypotension Blood pressure actually noted to drop in 70s/40s overnight, this has responded to blood and IVF. Again dropped into 80/50s today, responded to IVF. Will hold all hypertensive medications at this time. Increase Midodrine from 5mg to 10mg TID for blood pressure support. Suspect BP will improve with blood product. Cnt to monitor closely. Anemia This very well may be effecting his BP at this time. Was transfused 2 units packed red blood cells last night. Hemoglobin 9.1 today. Holding anticoagulation at this time. Initially thought to be secondary to hemodilution as patient has received IVF throughout his admission. Occult stool pending. No evidence of active bleeding. Anemia panel indicative of acute bleed CT abdomen pelvis notable for notably sized hematoma Pneumonia due to COVID-19 virus / Acute Hypoxic respiratory failure Chest x-ray notable for increased consolidation, unable to tell if this is secondary to worsening Covid versus hospital-acquired pneumonia. -Initiate meropenem therapy at this. CT head again negative to cover for HAP. -Discontinue Decadron, initiate Solu-Medrol 40 mg every 12. Covid-19 positive: 03/17/20 cause of acute respiratory failure. Supplemental oxygen as needed. Currently maintaining oxygen saturations on 2 L by nasal cannula. Standard of care vitamin supplements: zinc, ascorbic acid, vitamin d, melatonin As needed nebs as able Ivermectin x2 doses completed. Completed 5 day course of Doxycycline Was on p.o. prednisone, transitioned to IV given inability to swallow since CVA. Held Lovenox given acute drop in hgb; though notable that his d-dimer was consistently elevated. Potentially worsened secondary to fluids and blood products (noted right small pleural effusion on CXR) - Fluids and blood products necessary to maintain appropriate BP. Supplemental oxygen to maintain saturation of 90-94% T2DM (type 2 diabetes mellitus) T2DM; A1c 7.8%. -accucheks, sliding scale insulin -Consistent carb diet -diet counseling -outpt FU with PCP GERD (gastroesophageal reflux disease) Currently without symptoms. I did initiate PPI today given recently noted drop in hemoglobin. HTN (hypertension), benign Hold HTN medications as above. Monitor. Hematoma Hematoma in right flank. CT abdomen and pelvis notable for right lateral abdominal wall hematoma measuring 86 x 57 mm. Cholelithiasis. No other acute findings. Holding Lovenox given hgb and hematoma.
== END 2020-03-31 04:21 | disposition expired | DRG 177 ==
LOC: ER 15:21 → EH 20:59 → 4S 23:47 → 3W 03-29 20:23
PROVIDERS: ADMIT Internal Medicine; ATTEND Physician Assistant
PROC: 30233N1 Transfusion of Nonautologous Red Blood Cells into Peripheral Vein, Percutaneous Approach (ICD-10-PCS; principal; 2020-03-30)
DX: U07.1 COVID-19 (principal); J12.82 Pneumonia due to coronavirus disease 2019; J96.01 Acute respiratory failure with hypoxia; I63.312 Cerebral infarction due to thrombosis of left middle cerebral artery; I95.9 Hypotension, unspecified; E11.9 Type 2 diabetes mellitus without complications; K21.9 Gastro-esophageal reflux disease without esophagitis; I10 Essential (primary) hypertension; M54.9 Dorsalgia, unspecified; S30.1XXA Contusion of abdominal wall, initial encounter; X58.XXXA Exposure to other specified factors, initial encounter; R47.81 Slurred speech; Z66 Do not resuscitate; K80.20 Calculus of gallbladder without cholecystitis without obstruction; D50.0 Iron deficiency anemia secondary to blood loss (chronic); E86.0 Dehydration; Z87.891 Personal history of nicotine dependence; Z86.718 Personal history of other venous thrombosis and embolism
CPT/HCPCS: 36415; 36430; 36600; 70450; 70551; 71045; 74176; 80048; 80053; 81001; 82550; 82553; 82607; 82728; 82746; 82803; 82962; 83036; 83540; 83550; 83605; 83735; 84100; 84484; 85025; 85027; 85045; 85379; 85610; 85730; 86140; 86850; 86900; 86901; 86920; 87040; 92950; 93005; 93010; 94640; 96374; 99285; 0241U; C9113; C9803; J0171; J1100; J1650; J1815; J1940; J2185; J2270; J2920; J3480; J3486; J3490; J7030; J7060; J7120; J7512; P9016